=== PATIENT | female | born 1945 | race Native Hawaiian/Other Pacific Islander ===

== ENCOUNTER 2018-06-14 12:57 | Outpatient (CLI) | payer MEDICARE, OTHER ==
[2018-06-14] MEDS ORDERED: XYLOCAINE TOPICAL 4% TP ONE (13:34)
== END 2018-06-14 12:58 | disposition home or self-care (01) ==
LOC: WOUND 12:57
PROVIDERS: ATTEND Surgery
DX: L89.522 Pressure ulcer of left ankle, stage 2 (principal); L89.512 Pressure ulcer of right ankle, stage 2; I11.0 Hypertensive heart disease with heart failure; I50.9 Heart failure, unspecified; F03.90 Unspecified dementia, unspecified severity, without behavioral disturbance, psychotic disturbance, mood disturbance, and anxiety; Z90.710 Acquired absence of both cervix and uterus
CPT/HCPCS: 11042; G0463; 99215

== ENCOUNTER 2018-06-21 13:01 | Outpatient (CLI) | payer MEDICARE, OTHER ==
[2018-06-21] MEDS ORDERED: XYLOCAINE TOPICAL 4% TP ONE ×2 (13:16→16:14)
== END 2018-06-21 13:02 | disposition home or self-care (01) ==
LOC: WOUND 13:01
PROVIDERS: ATTEND Surgery
DX: L89.522 Pressure ulcer of left ankle, stage 2 (principal); L89.512 Pressure ulcer of right ankle, stage 2; I11.0 Hypertensive heart disease with heart failure; I50.9 Heart failure, unspecified; F03.90 Unspecified dementia, unspecified severity, without behavioral disturbance, psychotic disturbance, mood disturbance, and anxiety; Z90.710 Acquired absence of both cervix and uterus

== ENCOUNTER 2018-06-28 10:00 | Outpatient (CLI) | payer MEDICARE, OTHER ==
[2018-06-28] MEDS ORDERED: XYLOCAINE TOPICAL 4% TP ONE ×2 (10:12→10:28)
== END 2018-06-28 10:01 | disposition home or self-care (01) ==
LOC: WOUND 10:00
PROVIDERS: ATTEND Surgery
DX: L89.522 Pressure ulcer of left ankle, stage 2 (principal); L89.512 Pressure ulcer of right ankle, stage 2; I11.0 Hypertensive heart disease with heart failure; I50.9 Heart failure, unspecified; F03.90 Unspecified dementia, unspecified severity, without behavioral disturbance, psychotic disturbance, mood disturbance, and anxiety; Z90.710 Acquired absence of both cervix and uterus

== ENCOUNTER 2018-07-12 10:41 | Outpatient (CLI) | payer MEDICARE, OTHER | END 2018-07-12 10:42 | disposition home or self-care (01) | LOC: WOUND 10:41 | PROVIDERS: ATTEND Surgery | DX: L89.522 Pressure ulcer of left ankle, stage 2 (principal); L89.512 Pressure ulcer of right ankle, stage 2; I11.0 Hypertensive heart disease with heart failure; I50.9 Heart failure, unspecified; F03.90 Unspecified dementia, unspecified severity, without behavioral disturbance, psychotic disturbance, mood disturbance, and anxiety; Z90.710 Acquired absence of both cervix and uterus | CPT/HCPCS: 99213; G0463 ==

== ENCOUNTER 2018-10-06 12:22 | Inpatient (IN) | payer MEDICARE, OTHER ==
--- NOTE | 2018-10-06 12:48 | Emergency Department Report ---
ED Syncope HPI - General Chief Complaint: Altered Mental Status Stated Complaint: GENERAL WEAKNESS Time Seen by Provider: 10/06/18 12:30 Source: patient, family Exam Limitations: no limitations - History of Present Illness Initial Comments: 73-year-old female with a past medical history dementia, hypertension, CHF, and "blood clot in heart" presents to the hospital complaints of syncope/near syncopal episode prior to arrival. Patient was sitting in a chair and all of a sudden became less responsive and began to slide slight slump out of the chair. Patient was guided down to the floor and subsequently picked up by family members. Patient was less responsive but they are unsure if she completely passed out. Upon EMS arrival systolic pressure was in 90s but improved to over 100 with 250 mL of normal saline. Patient complains of nausea with vomiting and generalized weakness that occurred since the episode. Prior to that so patient was asymptomatic. In February 2018 patient was diagnosed with "a clot in her heart" and was treated with morphine with complications. Patient is now on Eliquis 1/2 tablet twice a day and has been told that the clot no longer present. Patient denies any pain. PMD: Dr. Maddox wax engraver Dr. Mendez - Related Data Allergies/Adverse Reactions: Allergies shellfish derived Adverse Reaction (Verified 06/14/18 14:19) Rash Home Medications: Ambulatory Orders Ciprofloxacin HCl [Cipro] 500 mg PO Q12H #6 tab 10/15/14 ED Review of Systems ROS: Stated complaint: GENERAL WEAKNESS Other details as noted in HPI Comment: All other systems reviewed and negative ED Past Medical Hx - Past Medical History Hx Hypertension: Yes Hx Arthritis: Yes (rheumatoid arthritis) Additional medical history: chf, dementia - Surgical History Additional Surgical History: HYSTERECTOMY - Social History Smoking Status: Never Smoker - Medications Home Medications: Home Medications Medication Instructions Recorded Confirmed Last Taken Type Ciprofloxacin HCl [Cipro] 500 mg PO Q12H #6 tab 10/15/14 Unknown Rx ED Physical Exam - General Limitations: Language Barrier - Other Other exam information: General: No limitations, patient is alert in no acute distress Head exam: Atraumatic, normocephalic Eyes exam: Normal appearance, pupils equal reactive to light, extraocular movements intact ENT: Moist mucous membrane, normal oropharynx Neck exam: Normal inspection, full range of motion, no meningismus nontender Respiratory exam: Clear to auscultation bilateral, no wheezes, rales, crackles Cardiovascular: Normal rate and rhythm, normal heart sounds Abdomen: Soft, nondistended, and nontender, with normal bowel sounds, no rebound, or guarding Extremity: Full range of motion normal inspection no deformity Back: Normal Inspection, full range of motion, no tenderness Neurologic: Alert, oriented to self and place but not to year, cranial nerves intact, no motor or sensory deficit Psychiatric: normal affect, normal mood Skin: Warm, dry, intact ED Course Vital Signs 10/06/18 10/06/18 10/06/18 12:33 12:35 12:45 Temperature 97.6 F Pulse Rate 67 78 69 Respiratory 18 15 17 Rate Blood Pressure Blood Pressure 100/34 [Left] O2 Sat by Pulse 96 99 99 Oximetry 10/06/18 10/06/18 10/06/18 13:11 13:15 13:31 Temperature Pulse Rate 72 74 Respiratory 14 13 Rate Blood Pressure Blood Pressure [Left] O2 Sat by Pulse 99 98 98 Oximetry 10/06/18 10/06/18 10/06/18 13:45 14:01 14:15 Temperature Pulse Rate Respiratory Rate Blood Pressure Blood Pressure [Left] O2 Sat by Pulse 98 97 99 Oximetry 10/06/18 10/06/18 10/06/18 14:31 14:45 15:01 Temperature Pulse Rate Respiratory Rate Blood Pressure 95/39 Blood Pressure [Left] O2 Sat by Pulse 97 96 97 Oximetry - Consultations Consultation #1: 10/06/18 15:00 Case d/w Shasta Horner [facility] cardiology. will consult ED Medical Decision Making - Lab Data Result diagrams: 10/06/18 13:32 10/06/18 13:32 Lab Results 10/06/18 10/06/18 10/06/18 Range/Units 13:32 13:32 13:32 WBC 18.8 H (4.5-11.0) K/mm3 RBC 4.61 (3.65-5.03) M/mm3 Hgb 9.2 L (10.1-14.3) gm/dl Hct 29.9 L (30.3-42.9) % MCV 65 L (79-97) fl MCH 20 L (28-32) pg MCHC 31 (30-34) % RDW 16.1 H (13.2-15.2) % Plt Count 600 H (140-440) K/mm3 Lymph % (Auto) 7.9 L (13.4-35.0) % [place] % (Auto) 4.6 (0.0-7.3) % Eos % (Auto) 0.4 (0.0-4.3) % Baso % (Auto) 0.1 (0.0-1.8) % Lymph # 1.5 (1.2-5.4) K/mm3 [place] # 0.9 H (0.0-0.8) K/mm3 Eos # 0.1 (0.0-0.4) K/mm3 Baso # 0.0 (0.0-0.1) K/mm3 Seg Neutrophils % 87.0 H (40.0-70.0) % Seg Neutrophils # 16.3 H (1.8-7.7) K/mm3 PT 15.0 H (12.2-14.9) Sec. INR 1.14 H (0.87-1.13) APTT 28.7 (24.2-36.6) Sec. Sodium 141 (137-145) mmol/L Potassium 4.9 (3.6-5.0) mmol/L Chloride 105.6 (98-107) mmol/L Carbon Dioxide 23 (22-30) mmol/L Anion Gap 17 mmol/L BUN 46 H (7-17) mg/dL Creatinine 1.8 H (0.7-1.2) mg/dL Estimated GFR 28 ml/min BUN/Creatinine Ratio 26 % Glucose 131 H (65-100) mg/dL Calcium 8.7 (8.4-10.2) mg/dL Magnesium (1.7-2.3) mg/dL Total Bilirubin 0.20 (0.1-1.2) mg/dL AST 24 (5-40) units/L ALT < 5 L (7-56) units/L Alkaline Phosphatase 39 (35-129) units/L Total Creatine Kinase 23 L (30-135) units/L CK-MB (CK-2) 1.0 (0.0-4.0) ng/mL CK-MB (CK-2) Rel Index 4.3 H (0-4) Troponin T < 0.010 (0.00-0.029) ng/mL Total Protein 6.4 (6.3-8.2) g/dL Albumin 3.6 L (3.9-5) g/dL Albumin/Globulin Ratio 1.3 % Urine Color (Yellow) Urine Turbidity (Clear) Urine pH (5.0-7.0) Ur Specific [place] (1.003-1.030) Urine Protein (Negative) mg/dL Urine Glucose (UA) (Negative) mg/dL Urine Ketones (Negative) mg/dL Urine Blood (Negative) Urine Nitrite (Negative) Urine Bilirubin (Negative) Urine Urobilinogen (<2.0) mg/dL Ur Leukocyte Esterase (Negative) Urine WBC (Auto) (0.0-6.0) /HPF Urine RBC (Auto) (0.0-6.0) /HPF U Epithel Cells (Auto) (0-13.0) /HPF Urine Bacteria (Auto) (Negative) /HPF Urine Mucus /HPF 10/06/18 10/06/18 Range/Units 13:32 14:15 WBC (4.5-11.0) K/mm3 RBC (3.65-5.03) M/mm3 Hgb (10.1-14.3) gm/dl Hct (30.3-42.9) % MCV (79-97) fl MCH (28-32) pg MCHC (30-34) % RDW (13.2-15.2) % Plt Count (140-440) K/mm3 Lymph % (Auto) (13.4-35.0) % [place] % (Auto) (0.0-7.3) % Eos % (Auto) (0.0-4.3) % Baso % (Auto) (0.0-1.8) % Lymph # (1.2-5.4) K/mm3 [place] # (0.0-0.8) K/mm3 Eos # (0.0-0.4) K/mm3 Baso # (0.0-0.1) K/mm3 Seg Neutrophils % (40.0-70.0) % Seg Neutrophils # (1.8-7.7) K/mm3 PT (12.2-14.9) Sec. INR (0.87-1.13) APTT (24.2-36.6) Sec. Sodium (137-145) mmol/L Potassium (3.6-5.0) mmol/L Chloride (98-107) mmol/L Carbon Dioxide (22-30) mmol/L Anion Gap mmol/L BUN (7-17) mg/dL Creatinine (0.7-1.2) mg/dL Estimated GFR ml/min BUN/Creatinine Ratio % Glucose (65-100) mg/dL Calcium (8.4-10.2) mg/dL Magnesium 2.70 H (1.7-2.3) mg/dL Total Bilirubin (0.1-1.2) mg/dL AST (5-40) units/L ALT (7-56) units/L Alkaline Phosphatase (35-129) units/L Total Creatine Kinase (30-135) units/L CK-MB (CK-2) (0.0-4.0) ng/mL CK-MB (CK-2) Rel Index (0-4) Troponin T (0.00-0.029) ng/mL Total Protein (6.3-8.2) g/dL Albumin (3.9-5) g/dL Albumin/Globulin Ratio % Urine Color Yellow (Yellow) Urine Turbidity Slightly-cloudy (Clear) Urine pH 5.0 (5.0-7.0) Ur Specific [place] 1.013 (1.003-1.030) Urine Protein 30 mg/dl (Negative) mg/dL Urine Glucose (UA) Neg (Negative) mg/dL Urine Ketones Neg (Negative) mg/dL Urine Blood Neg (Negative) Urine Nitrite Neg (Negative) Urine Bilirubin Neg (Negative) Urine Urobilinogen < 2.0 (<2.0) mg/dL Ur Leukocyte Esterase Lg (Negative) Urine WBC (Auto) 57.0 H (0.0-6.0) /HPF Urine RBC (Auto) 12.0 (0.0-6.0) /HPF U Epithel Cells (Auto) 1.0 (0-13.0) /HPF Urine Bacteria (Auto) 2+ (Negative) /HPF Urine Mucus Few /HPF - EKG Data -: EKG Interpreted by Me (JOE) EKG shows normal: sinus rhythm, axis (qrs 30), QRS complexes (qrsd 172), ST-T waves (no stemi) Rate: normal (72) - EKG Data When compared to previous EKG there are: previous EKG unavailable - Radiology Data Radiology results: report reviewed CT HEAD WITHOUT CONTRAST: HISTORY: Syncope. TECHNIQUE: Sequential CT images without contrast. FINDINGS: Images obtained show bilateral prominence of the sulci and ventricles. There are no abnormal intra- or extra-axial blood or fluid collections. There are no focal masses or evidence of mass effect. The chowdhury white matter differentiation appears within normal limits. Regions of periventricular decreased attenuation are consistent with microangiopathic ischemic disease. Subcentimeter chronic focal infarcts are identified in the right thalamus and left parietal cortex involving the postcentral gyrus. The posterior fossa structures including the fourth ventricle, cerebellum, and brainstem appear normal. IMPRESSION: Evidence of atrophy and microangiopathic ischemic disease. Focal chronic infarcts as described. No acute intracranial process noted. AP CHEST: HISTORY: Near syncope AP view of the chest demonstrates a normal mediastinal and cardiac contour with clear lungs and normal bony and soft tissue structures. IMPRESSION: Unremarkable AP chest. - Medical Decision Making Patient be admitted to the hospital for syncope/near syncopal episode. Initial hypotension corrected prior to arrival with IV fluids. Labs reveal renal insufficiency with prerenal BUN to creatinine ratio suggesting dehydration. Baseline creatine unknown. Additional normal saline ordered. Patient has a left bundle branch block without a previous EKG for comparison however, patient denies chest pain and has a negative initial troponin. No previous cardiac workup or ejection fraction record although hx of chf therefore 500ml of NS ordered initially. Rocephin order for UTI with urine cultures pending. [facility] Dr. Dunbar informed for admission. [facility] consulted Additional labs ordered to rule out sepsis given elevated white blood cell count, UTI, and borderline blood pressure. Initial 500 normal saline given an additional normal saline ordered so the patient may receive 30 mL per KG bolus. - Differential Diagnosis arrhythmia, infection, dehydration, ICH, cephalopathy, CVA Critical Care Time: No Critical care attestation.: If time is entered above; I have spent that time in minutes in the direct care of this critically ill patient, excluding procedure time. ED Disposition Clinical Impression: Syncope, UTI (urinary tract infection), Dehydration, Dementia, Renal insufficiency, Anticoagulant long-term use, Anemia Disposition: OP ADMIT IP TO THIS HOSP Is pt being admited?: Yes Condition: Stable Referrals: PRIMARY CARE, [Primary Care Provider] - 3-5 Days Time of Disposition: 14:55 (Dr Dunbar/[facility])
--- NOTE | 2018-10-06 13:13 | XRay Report ---
AP CHEST: HISTORY: Near syncope AP view of the chest demonstrates a normal mediastinal and cardiac contour with clear lungs and normal bony and soft tissue structures. IMPRESSION: Unremarkable AP chest.
--- NOTE | 2018-10-06 13:19 | Cat Scan Report ---
CT HEAD WITHOUT CONTRAST: HISTORY: Syncope. TECHNIQUE: Sequential CT images without contrast. FINDINGS: Images obtained show bilateral prominence of the sulci and ventricles. There are no abnormal intra- or extra-axial blood or fluid collections. There are no focal masses or evidence of mass effect. The chowdhury white matter differentiation appears within normal limits. Regions of periventricular decreased attenuation are consistent with microangiopathic ischemic disease. Subcentimeter chronic focal infarcts are identified in the right thalamus and left parietal cortex involving the postcentral gyrus. The posterior fossa structures including the fourth ventricle, cerebellum, and brainstem appear normal. IMPRESSION: Evidence of atrophy and microangiopathic ischemic disease. Focal chronic infarcts as described. No acute intracranial process noted.
[2018-10-06 13:56] LABS: INR 1.14 (0.87-1.13); Partial Thromboplastin Time 28.7 Sec. (24.2-36.6)
[2018-10-06 14:08] LABS: Albumin 3.6 g/dL (3.9-5); BUN/Creatinine Ratio 26; Blood Urea Nitrogen 46 mg/dL (7-17); Calcium 8.7 mg/dL (8.4-10.2); Hemolysis Index 15
[2018-10-06 14:18] LABS: Alanine Aminotransferase < 5 units/L (7-56)
[2018-10-06] MEDS ORDERED: NACL 0.9% 500 ML 500 ML IV ONE (14:25)
[2018-10-06 14:33] LABS: Bacteria,Urine 2+ /HPF (Negative); Bilirubin,Urine NEG (Negative); Blood,Urine NEG (Negative); Color,Urine Yellow (Yellow); Mucus,Urine FEW /HPF; Urobilinogen,Urine < 2.0 mg/dL (<2.0)
[2018-10-06 14:46] LABS: Basophils % (Auto) 0.1 % (0.0-1.8); Eosinophils # (Auto) 0.1 K/mm3 (0.0-0.4); Eosinophils % (Auto) 0.4 % (0.0-4.3); Hematocrit 29.9 % (30.3-42.9); Hemoglobin 9.2 gm/dl (10.1-14.3); Lymphocytes # (Auto) 1.5 K/mm3 (1.2-5.4); Lymphocytes % (Auto) 7.9 % (13.4-35.0); Mean Corpuscular HGB Conc 31 % (30-34); Monocytes # (Auto) 0.9 K/mm3 (0.0-0.8); Monocytes % (Auto) 4.6 % (0.0-7.3); Platelet Count 600 K/mm3 (140-440); Red Blood Count 4.61 M/mm3 (3.65-5.03); Red Cell Distribution Width 16.1 % (13.2-15.2)
[2018-10-06 14:56] LABS: Mean Corpuscular Volume 65 fl (79-97)
[2018-10-06] MEDS ORDERED: NACL 0.9% 1000 ML IV ONE ×2 (15:05→15:06)
[2018-10-06] MEDS ORDERED: ROCEPHIN/NS 1 GM/50 ML 1 GM/50 ML BAG IV ONE (15:30)
[2018-10-06] MEDS ORDERED: NACL 0.9% 1000 ML 1,000 ML ONE (15:59)
[2018-10-06] MEDS ORDERED: TYLENOL PO PRN (21:53)
[2018-10-06] MEDS ORDERED: ZOFRAN IV PRN (21:53)
[2018-10-06] MEDS ORDERED: DILAUDID IV PRN (21:53)
[2018-10-06] MEDS ORDERED: SODIUM CHLORIDE FLUSH SYRINGE 10 ML IV PRN (21:53)
[2018-10-06] MEDS ORDERED: LASIX PO SCH (22:00)
[2018-10-06] MEDS: ELIQUIS PO SCH (22:42)
[2018-10-06] MEDS: FEOSOL PO SCH (22:43)
[2018-10-06] MEDS: COREG PO SCH (22:43)
[2018-10-06] MEDS: SODIUM CHLORIDE FLUSH SYRINGE 10 ML IV SCH (22:43)
[2018-10-06] MEDS: DELTASONE PO SCH (22:44)
[2018-10-06] MEDS: ALDACTONE PO SCH (22:45)
[2018-10-06] MEDS: ZESTRIL PO SCH (22:48)
[2018-10-06] MEDS: NACL 0.9% 1000 ML 1,000 ML IV SCH (23:06)
[2018-10-06] MEDS: NAMENDA PO SCH (23:12)
[2018-10-07 06:19] LABS: Basophils % (Auto) 0.2 % (0.0-1.8); Eosinophils # (Auto) 0.1 K/mm3 (0.0-0.4); Eosinophils % (Auto) 0.5 % (0.0-4.3); Hematocrit 23.7 % (30.3-42.9); Hemoglobin 7.5 gm/dl (10.1-14.3); Lymphocytes # (Auto) 1.1 K/mm3 (1.2-5.4); Lymphocytes % (Auto) 9.6 % (13.4-35.0); Mean Corpuscular HGB Conc 32 % (30-34); Monocytes # (Auto) 0.6 K/mm3 (0.0-0.8); Platelet Count 486 K/mm3 (140-440); Red Blood Count 3.72 M/mm3 (3.65-5.03); Red Cell Distribution Width 16.2 % (13.2-15.2)
[2018-10-07 06:21] LABS: Mean Corpuscular Volume 64 fl (79-97)
--- NOTE | 2018-10-07 06:33 | Event Note ---
Date: 10/06/18 See dictated H/p in reports Syncope
[2018-10-07 06:43] LABS: Albumin 3.2 g/dL (3.9-5); BUN/Creatinine Ratio 24; Blood Urea Nitrogen 31 mg/dL (7-17); Calcium 7.8 mg/dL (8.4-10.2); Hemolysis Index 3
[2018-10-07 06:49] LABS: Alanine Aminotransferase < 5 units/L (7-56)
--- NOTE | 2018-10-07 07:00 | History and Physical Report ---
CHIEF COMPLAINT: Passed out prior to arrival. HISTORY OF PRESENT ILLNESS: A 73-year-old with past medical history of CHF, hypertension, dementia, brought in because she became less responsive and slumped out of the chair. The patient was guided down to the floor and subsequently picked up by the family members. Family is not sure whether she completely passed out. When the EMS arrived, her blood pressure was in the low 90s, which improved with normal saline bolus of 250 mL. The patient also complains of generalized weakness since the one episode of vomiting. The patient apparently has a clot in the heart and is on Eliquis. . 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 PAST SURGICAL HISTORY: Hysterectomy. SOCIAL HISTORY: Does not smoke. FAMILY HISTORY: Hypertension. CURRENT MEDICATIONS: Eliquis twice a day. REVIEW OF SYSTEMS: Significant for syncope and collapse. Otherwise, review of systems negative. A 14-point review of systems done. PHYSICAL EXAMINATION: GENERAL: Elderly female, cooperative during examination. Slightly altered sensorium. VITAL SIGNS: Temperature 98.4, pulse 85, respirations 18, sats are 99%, blood pressure 102/52. HEENT: Unremarkable. Pupils equal and reactive. NECK: Supple, no lymphadenopathy, no thyromegaly. LUNGS: Clear to auscultation and percussion. Good air entry. CARDIOVASCULAR: S1, S2 heard. No gallop, no murmur, no rub. Apical impulse in left fifth intercostal space and midclavicular line. ABDOMEN: Soft and benign. No hepatosplenomegaly. No guarding, no rigidity. Hernial orifices are normal. EXTREMITIES: Good pedal pulses. No pedal edema. CENTRAL NERVOUS SYSTEM: Alert and oriented x 4, nonfocal exam. LABORATORY DATA: Chest x-ray shows unremarkable AP chest. Head CT with no acute findings. EKG shows left bundle branch block, ST elevation secondary to IVCD. Heart rate of 72 per minute. Labs significant for white count of 18,800, H and H of 9.2 and 29.9, platelet count of 600,000. Electrolytes, BUN and creatinine of 46 and 1.8 and glucose of 131. Magnesium 2.7. CK is 23, CK-MB is 1.0 and CK-MB is 4.3. Troponin is less than 0.010. Urine WBC 57. ASSESSMENT AND PLAN: 1. Syncope and collapse. Now, syncope workup. 2. Urinary tract infection. The patient initiated on IV ceftriaxone. 3. Systemic inflammatory response syndrome. The patient has a high white count and urinary tract infection. Qualifies for systemic inflammatory response syndrome, which may have caused the syncope and collapse. 4. Hyperlipidemia. Continue fenofibrate. 5. Hypertension. Continue Coreg. 6. Osteoporosis. We will hold the Fosamax for now. 7. Dementia. Continue Aricept and Namenda. 8. Bipolar disorder. Continue Seroquel. 9. Deep venous thrombosis prophylaxis, Lovenox 40 mg subcutaneous daily. JOB# [id number] VSM/NTS
[2018-10-07] MEDS: VITAMIN C PO SCH (09:39)
[2018-10-07] MEDS: TRICOR PO SCH (09:39)
[2018-10-07] MEDS: ALDACTONE PO SCH (09:39)
[2018-10-07] MEDS: SODIUM CHLORIDE FLUSH SYRINGE 10 ML IV SCH ×2 (09:39→21:26)
[2018-10-07] MEDS: FOLVITE PO SCH (09:39)
[2018-10-07] MEDS: FEOSOL PO SCH ×2 (09:39→21:25)
[2018-10-07] MEDS: DELTASONE PO SCH ×2 (09:39→21:25)
[2018-10-07] MEDS: ELIQUIS PO SCH ×2 (09:39→21:25)
[2018-10-07] MEDS: ARICEPT PO SCH (09:39)
[2018-10-07] MEDS: COREG PO SCH ×2 (09:40→21:25)
[2018-10-07] MEDS ORDERED: ROCEPHIN/NS 2 GM/100 ML 2 GM/100 ML BAG IV SCH (10:00)
[2018-10-07] MEDS: ZESTRIL PO SCH (11:33)
[2018-10-07] MEDS: NAMENDA PO SCH ×2 (12:41→21:29)
--- NOTE | 2018-10-07 13:50 | Consultation ---
History of Present Illness Consult date: 10/07/18 Requesting physician: JENNY CUEVA Consult reason: syncope History of present illness: The pt is a 73 YO female with a past medical history of NICMP (not a candidate for AICD due to mental status), LV thrombus (diagnosed 02/2018), anticoagulated with Eliquis, LBBB, dementia, rheumatoid arthritis, renal insufficiency. She is followed in our office by Dr. Mendez. She is a poor historian due to dementia and thus HPI is obtained per the chart. She presented to the hospital with complaints of syncope/near syncopal episode prior to arrival. Patient was sitting in a chair and all of a sudden became less responsive and began to slide and slump out of the chair. Patient was guided down to the floor and subsequently picked up by family members. Patient was less responsive but they are unsure if she completely passed out. Upon EMS arrival systolic pressure was in 90s but improved to over 100 with 250 mL of normal saline. In ED, patient c/o nausea with vomiting and generalized weakness that occurred since the episode. Prior to that so patient was asymptomatic. On evaluation, pt denies any current complaints. Echo done 09/01/2018 showed EF 25-30%, LV mod dilated, no intracardiac mass or thrombus identified. PET Perfusion Study done 05/26/2017 - Impression: 1. Abnormal Lexiscan EKG. Patient went into LBBB during infusion that quickly resolved after 2 minutes.2. Normal rest and stress myocardial PET perfusion scan. No significant stress induced ischemia, no wall motion abnormality.3. Gated SPECT at rest 52%, stress 59%. 3. Coronary flow globally is diminished at 1.34. Past History Past Medical History: heart failure, other (NICMP (not a candidate for AICD due to mental status), LV thrombus (diagnosed 02/2018), anticoagulated with Eliquis, dementia, rheumatoid arthritis, renal insufficiency.) Social history: lives with family. denies: smoking, alcohol abuse, prescription drug abuse Medications and Allergies Allergies Allergy/AdvReac Type Severity Reaction Status Date / Time shellfish derived AdvReac Rash Verified 06/14/18 14:19 Home Medications Medication Instructions Recorded Confirmed Last Taken Type Alendronate Sodium [Fosamax] 70 mg PO QWEEK 10/06/18 10/06/18 10/04/18 History Apixaban [Eliquis] 2.5 mg PO BID 10/06/18 10/06/18 10/06/18 History Ascorbic Acid [Vitamin C] 500 mg PO QDAY 10/06/18 10/06/18 Unknown History Carvedilol [Coreg] 6.25 mg PO BID 10/06/18 10/06/18 10/06/18 History Cyanocobalamin (Vitamin B-12) 1,000 mcg PO DAILY 10/06/18 10/06/18 Unknown History [Vitamin B-12] Donepezil [Aricept] 10 mg PO QDAY 10/06/18 10/06/18 10/06/18 History Fenofibrate 160 mg PO DAILY 10/06/18 10/06/18 10/06/18 History Ferrous Sulfate [Feosol] 325 mg PO BID 10/06/18 10/06/18 10/06/18 History Folic Acid [Folvite] 1 mg PO QDAY 10/06/18 10/06/18 10/06/18 History Furosemide [Lasix TAB] 40 mg PO Q48H 10/06/18 10/06/18 Unknown History Lisinopril [Zestril] 5 mg PO QDAY 10/06/18 10/06/18 Unknown History Memantine [Namenda] 5 mg PO BID 10/06/18 10/06/18 10/06/18 History QUEtiapine [SEROquel] 25 mg PO BID 10/06/18 10/06/18 10/06/18 History Spironolactone [Aldactone] 25 mg PO QDAY 10/06/18 10/06/18 Unknown History predniSONE [Prednisone] 5 mg PO BID 10/06/18 10/06/18 10/06/18 History Active Meds: Active Medications Acetaminophen (Tylenol) 650 mg PO Q4H PRN PRN Reason: Pain MILD(1-3)/Fever >100.5/DINH Apixaban (Eliquis) 2.5 mg PO BID [facility]; Protocol Last Admin: 10/07/18 09:39 Dose: 2.5 mg Documented by: Ascorbic Acid (Vitamin C) 500 mg PO QDAY [facility] Last Admin: 10/07/18 09:39 Dose: 500 mg Documented by: Carvedilol (Coreg) 6.25 mg PO BID [facility] Last Admin: 10/07/18 09:40 Dose: Not Given Documented by: Donepezil HCl (Aricept) 10 mg PO QDAY [facility] Last Admin: 10/07/18 09:39 Dose: 10 mg Documented by: Fenofibrate (Tricor) 145 mg PO DAILY [facility] Last Admin: 10/07/18 09:39 Dose: 145 mg Documented by: Ferrous Sulfate (Feosol) 325 mg PO BID [facility] Last Admin: 10/07/18 09:39 Dose: 325 mg Documented by: Folic Acid (Folvite) 1 mg PO QDAY [facility] Last Admin: 10/07/18 09:39 Dose: 1 mg Documented by: Furosemide (Lasix) 40 mg PO Q48H [facility] Last Admin: 10/06/18 22:45 Dose: Not Given Documented by: Hydromorphone HCl (Dilaudid) 0.5 mg IV Q3H PRN PRN Reason: Pain , Severe (7-10) Sodium Chloride (Nacl 0.9% 1000 Ml) 1,000 mls @ 75 mls/hr IV DIRECT [facility] Last Admin: 10/06/18 23:06 Dose: 75 mls/hr Documented by: Ceftriaxone Sodium (Rocephin/Ns 2 Gm/100 Ml) 2 gm in 100 mls @ 200 mls/hr IV Q24HR [facility]; Protocol Last Admin: 10/07/18 11:32 Dose: 200 mls/hr Documented by: Lisinopril (Zestril) 5 mg PO QDAY [facility] Last Admin: 10/07/18 11:33 Dose: Not Given Documented by: Memantine (Namenda) 5 mg PO BID [facility] Last Admin: 10/07/18 12:41 Dose: 5 mg Documented by: Ondansetron HCl (Zofran) 4 mg IV Q8H PRN PRN Reason: Nausea And Vomiting Prednisone (Deltasone) 5 mg PO BID [facility] Last Admin: 10/07/18 09:39 Dose: 5 mg Documented by: Quetiapine Fumarate (Seroquel) 25 mg PO BID [facility] Last Admin: 10/07/18 09:39 Dose: 25 mg Documented by: Sodium Chloride (Sodium Chloride Flush Syringe 10 Ml) 10 ml IV BID [facility] Last Admin: 10/07/18 09:39 Dose: 10 ml Documented by: Sodium Chloride (Sodium Chloride Flush Syringe 10 Ml) 10 ml IV PRN PRN PRN Reason: LINE FLUSH Spironolactone (Aldactone) 25 mg PO QDAY [facility] Last Admin: 10/07/18 09:39 Dose: Not Given Documented by: Review of Systems All systems: negative (no current complaints) Physical Examination Vital Signs Pulse Resp BP Pulse Ox 67 18 100/34 96 10/06/18 12:33 10/06/18 12:33 10/06/18 12:33 10/06/18 12:33 General appearance: no acute distress HEENT: Positive: PERRL, Normocephaly, Mucus Membranes Moist Neck: Positive: neck supple, trachea midline Cardiac: Positive: Reg Rate and Rhythm, S1/S2 Lungs: Positive: clear to auscultation Neuro: Positive: Grossly Intact Abdomen: Positive: Soft. Negative: Tender Skin: Negative: Rash, Wound Musculoskeletal: No Pain Extremities: Absent: edema Results 10/07/18 05:32 10/07/18 05:32 Cardiac Enzymes 10/06/18 10/07/18 Range/Units 13:32 05:32 AST 24 20 (5-40) units/L CK-MB (CK-2) 1.0 (0.0-4.0) ng/mL Coagulation 10/06/18 Range/Units 13:32 PT 15.0 H (12.2-14.9) Sec. INR 1.14 H (0.87-1.13) APTT 28.7 (24.2-36.6) Sec. CBC 10/06/18 10/07/18 Range/Units 13:32 05:32 WBC 18.8 H 11.9 H (4.5-11.0) K/mm3 RBC 4.61 3.72 (3.65-5.03) M/mm3 Hgb 9.2 L 7.5 L (10.1-14.3) gm/dl Hct 29.9 L 23.7 L D (30.3-42.9) % Plt Count 600 H 486 H (140-440) K/mm3 Lymph # 1.5 1.1 L (1.2-5.4) K/mm3 Brown # 0.9 H 0.6 (0.0-0.8) K/mm3 Eos # 0.1 0.1 (0.0-0.4) K/mm3 Baso # 0.0 0.0 (0.0-0.1) K/mm3 Comprehensive Metabolic Panel 10/06/18 10/07/18 Range/Units 13:32 05:32 Sodium 141 142 (137-145) mmol/L Potassium 4.9 5.5 H (3.6-5.0) mmol/L Chloride 105.6 114.4 H (98-107) mmol/L Carbon Dioxide 23 20 L (22-30) mmol/L BUN 46 H 31 H (7-17) mg/dL Creatinine 1.8 H 1.3 H (0.7-1.2) mg/dL Glucose 131 H 97 (65-100) mg/dL Calcium 8.7 7.8 L (8.4-10.2) mg/dL AST 24 20 (5-40) units/L ALT < 5 L < 5 L (7-56) units/L Alkaline Phosphatase 39 34 L (35-129) units/L Total Protein 6.4 5.4 L (6.3-8.2) g/dL Albumin 3.6 L 3.2 L (3.9-5) g/dL - Imaging and Cardiology Echo: report reviewed (09/01/2018 showed EF 25-30%, LV mod dilated, no intracardiac mass or thrombus identified. ) EKG: report reviewed, image reviewed EKG interpretations - Telemetry EKG Rhythm: Sinus Rhythm - EKG Sinus rhythms and dysrhythmias: sinus rhythm AV and intraventricular conduction: left bundle branch block Assessment and Plan Head CT with NAF. Carotid studies pending. Cont telemetry. Suspect ?syncopal/presyncopal episode secondary to dehydration. Currently stable cardiac status. No current indication for repeat echo or ischemic evaluation at this time. Hold home lasix, lisinopril, aldactone in setting of hyperkalemia, dehydration and renal insufficiency. Agree with IVF per primary. Repeat BMP in AM. Cont home Eliquis 2.5mg BID and coreg. Abx per primary. The patient has been seen in conjunction with Dr. Esteban Valles who agrees with the assessment and plan of care. - Patient Problems (1) Syncope Current Visit: Yes Status: Suspected (2) UTI (urinary tract infection) Current Visit: Yes Status: Acute (3) Dehydration Current Visit: Yes Status: Acute (4) Anemia Current Visit: Yes Status: Acute (5) Renal insufficiency Current Visit: Yes Status: Acute (6) Hyperkalemia Current Visit: Yes Status: Acute (7) NICM (nonischemic cardiomyopathy) Current Visit: Yes Status: Acute (8) LV (left ventricular) mural thrombus Current Visit: No Status: Resolved (9) Anticoagulant long-term use Current Visit: Yes Status: Chronic (10) LBBB (left bundle branch block) Current Visit: Yes Status: Chronic (11) Dementia Current Visit: Yes Status: Chronic
[2018-10-07] MEDS ORDERED: IMODIUM PO PRN (15:28)
--- NOTE | 2018-10-07 16:13 | Progress Note ---
Assessment and Plan Assessment and plan: Syncopal episode - CT head was normal, carotid Doppler was done - Syncopal episode may be due to dehydration, hypotension Nonischemic cardiomyopathy EF of 25-30%, left ventricular thrombus - Cardiology was consulted and recommended to hold the blood pressure medications and continue eliquis - Patient is not a candidate for AICD because of dementia Acute renal failure, likely vasomotor nephropathy - Improved after fluid administration - We'll monitor Hyperkalemia - Old Aldactone and lisinopril - IV fluid - Monitor BMP in the morning UTI - Patient was on ceftriaxone, and had diarrhea, I changed to Lovenox Disposition - Continue inpatient care - Possible discharge tomorrow if continued to be stable History Interval history: Patient was seen and evaluated this morning, patient has dementia and history is obtained from her son and chart review. Patient said she didn't have any complaints. Hospitalist Physical - Physical exam Narrative exam: Not in cardiopulmonary distress. The patient appeared well nourished and normally developed. Vital signs as documented. Head exam is unremarkable. No scleral icterus . Neck is without jugular venous distension, thyromegaly, or carotid bruits. Lungs are clear to auscultation. Cardiac exam reveals regular rate and Rhythm. Abdominal exam reveals normal bowel sounds. Extremities are nonedematous and both femoral and pedal pulses are normal. 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 - Constitutional Vitals: Temp Pulse Resp BP Pulse Ox 98.4 F 85 16 114/60 97 10/07/18 15:50 10/07/18 15:50 10/07/18 15:50 10/07/18 15:50 10/07/18 15:50 General appearance: Present: no acute distress Results - Labs CBC & Chem 7: 10/07/18 05:32 10/07/18 05:32 Labs: Laboratory Last Values WBC 11.9 K/mm3 (4.5-11.0) H 10/07/18 05:32 RBC 3.72 M/mm3 (3.65-5.03) 10/07/18 05:32 Hgb 7.5 gm/dl (10.1-14.3) L 10/07/18 05:32 Hct 23.7 % (30.3-42.9) L D 10/07/18 05:32 MCV 64 fl (79-97) L 10/07/18 05:32 MCH 20 pg (28-32) L 10/07/18 05:32 MCHC 32 % (30-34) 10/07/18 05:32 RDW 16.2 % (13.2-15.2) H 10/07/18 05:32 Plt Count 486 K/mm3 (140-440) H 10/07/18 05:32 Lymph % (Auto) 9.6 % (13.4-35.0) L 10/07/18 05:32 Esmeralda % (Auto) 5.0 % (0.0-7.3) 10/07/18 05:32 Eos % (Auto) 0.5 % (0.0-4.3) 10/07/18 05:32 Baso % (Auto) 0.2 % (0.0-1.8) 10/07/18 05:32 Lymph # 1.1 K/mm3 (1.2-5.4) L 10/07/18 05:32 Esmeralda # 0.6 K/mm3 (0.0-0.8) 10/07/18 05:32 Eos # 0.1 K/mm3 (0.0-0.4) 10/07/18 05:32 Baso # 0.0 K/mm3 (0.0-0.1) 10/07/18 05:32 Seg Neutrophils % 84.7 % (40.0-70.0) H 10/07/18 05:32 Seg Neutrophils # 10.1 K/mm3 (1.8-7.7) H 10/07/18 05:32 PT 15.0 Sec. (12.2-14.9) H 10/06/18 13:32 INR 1.14 (0.87-1.13) H 10/06/18 13:32 APTT 28.7 Sec. (24.2-36.6) 10/06/18 13:32 VBG pH 7.325 (7.320-7.420) 10/06/18 15:26 Sodium 142 mmol/L (137-145) 10/07/18 05:32 Potassium 5.5 mmol/L (3.6-5.0) H 10/07/18 05:32 Chloride 114.4 mmol/L (98-107) H 10/07/18 05:32 Carbon Dioxide 20 mmol/L (22-30) L 10/07/18 05:32 Anion Gap 13 mmol/L 10/07/18 05:32 BUN 31 mg/dL (7-17) H 10/07/18 05:32 Creatinine 1.3 mg/dL (0.7-1.2) H 10/07/18 05:32 Estimated GFR 40 ml/min 10/07/18 05:32 BUN/Creatinine Ratio 24 % 10/07/18 05:32 Glucose 97 mg/dL (65-100) 10/07/18 05:32 POC Glucose 97 (70-105) 10/07/18 06:28 Hemoglobin A1c 6.7 % (4-6) H 10/06/18 Unknown Lactic Acid 1.60 mmol/L (0.7-2.0) 10/06/18 18:14 Calcium 7.8 mg/dL (8.4-10.2) L 10/07/18 05:32 Magnesium 2.70 mg/dL (1.7-2.3) H 10/06/18 13:32 Total Bilirubin < 0.20 mg/dL (0.1-1.2) 10/07/18 05:32 AST 20 units/L (5-40) 10/07/18 05:32 ALT < 5 units/L (7-56) L 10/07/18 05:32 Alkaline Phosphatase 34 units/L (35-129) L 10/07/18 05:32 Total Creatine Kinase 23 units/L (30-135) L 10/06/18 13:32 CK-MB (CK-2) 1.0 ng/mL (0.0-4.0) 10/06/18 13:32 CK-MB (CK-2) Rel Index 4.3 (0-4) H 10/06/18 13:32 Troponin T < 0.010 ng/mL (0.00-0.029) 10/06/18 13:32 Total Protein 5.4 g/dL (6.3-8.2) L 10/07/18 05:32 Albumin 3.2 g/dL (3.9-5) L 10/07/18 05:32 Albumin/Globulin Ratio 1.5 % 10/07/18 05:32 Urine Color Yellow (Yellow) 10/06/18 14:15 Urine Turbidity Slightly-cloudy (Clear) 10/06/18 14:15 Urine pH 5.0 (5.0-7.0) 10/06/18 14:15 Ur Specific [place] 1.013 (1.003-1.030) 10/06/18 14:15 Urine Protein 30 mg/dl mg/dL (Negative) 10/06/18 14:15 Urine Glucose (UA) Neg mg/dL (Negative) 10/06/18 14:15 Urine Ketones Neg mg/dL (Negative) 10/06/18 14:15 Urine Blood Neg (Negative) 10/06/18 14:15 Urine Nitrite Neg (Negative) 10/06/18 14:15 Urine Bilirubin Neg (Negative) 10/06/18 14:15 Urine Urobilinogen < 2.0 mg/dL (<2.0) 10/06/18 14:15 Ur Leukocyte Esterase Lg (Negative) 10/06/18 14:15 Urine WBC (Auto) 57.0 /HPF (0.0-6.0) H 10/06/18 14:15 Urine RBC (Auto) 12.0 /HPF (0.0-6.0) 10/06/18 14:15 U Epithel Cells (Auto) 1.0 /HPF (0-13.0) 10/06/18 14:15 Urine Bacteria (Auto) 2+ /HPF (Negative) 10/06/18 14:15 Urine Mucus Few /HPF 10/06/18 14:15
[2018-10-07] MEDS ORDERED: LEVAQUIN 750MG/150ML 750 MG/150 ML BAG IV SCH ×2 (17:00→18:30)
[2018-10-07] MEDS: NACL 0.9% 1000 ML 1,000 ML IV SCH (18:00)
--- NOTE | 2018-10-07 23:20 | Vascular Lab Report ---
FINAL REPORT EXAM: VL CAROTID DUPLEX BILAT HISTORY: syncope TECHNIQUE: Grayscale, color flow and Doppler waveform imaging of the cervical carotid and vertebral arteries was performed. Comparison: None FINDINGS: There is demonstration of normal antegrade flow in the cervical carotid and vertebral arteries bilate rally. There is no demonstration of plaque formation. Peak systolic velocity in the right internal carotid artery is 107 centimeters/second and in the left internal carotid artery is 87 centimeters/second. Peak systolic ICA/CCA ratio on the right is 0.9 and on the left is 1.2 IMPRESSION: 1. No ultrasound evidence of stenosis in the cervical carotid arteries bilaterally.
[2018-10-08] MEDS ORDERED: LEVAQUIN 750MG/150ML 750 MG/150 ML BAG IV SCH (10:00)
--- NOTE | 2018-10-08 11:12 | Discharge Summary ---
Providers - Providers Date of Admission: 10/06/18 14:56 Attending physician: CAMACHO KEARNEY MD 10/06/18 14:54 Consult to Physician [CONS] Urgent Comment: Consulting Provider: FABIAN MENDEZ Physician Instructions: Reason For Exam: syncope Primary care physician: TEST CELL TECHNICIAN Hospitalization Reason for admission: syncope, dehydration, UTI, dementia Condition: Stable Pertinent studies: ECHO CT head Hospital course: 73-year-old female with a past medical history dementia, hypertension, CHF, and "blood clot in heart" presents to the hospital complaints of syncope/near syncopal episode prior to arrival. Patient was sitting in a chair and all of a sudden became less responsive and began to slide slight slump out of the chair. Patient was guided down to the floor and subsequently picked up by family members. Patient was less responsive but they are unsure if she completely passed out. Upon EMS arrival systolic pressure was in 90s but improved to over 100 with 250 mL of normal saline. Patient complains of nausea with vomiting and generalized weakness that occurred since the episode. Prior to that so patient was asymptomatic. In February 2018 patient was diagnosed with "a clot in her heart" and was treated with morphine with complications. Patient is now on Eliquis 1/2 tablet twice a day and has been told that the clot no longer present. Patient denies any pain. PMD: Dr. Maddox radar air traffic controller Dr. Mendez Syncopal episode; CT head was normal, carotid Doppler was done and unremarkable. Syncopal episode may be due to dehydration, hypotension and resolved after treatment with IVF. Nonischemic cardiomyopathy EF of 25-30%, left ventricular thrombus; Cardiology was consulted and recommended to hold the blood pressure medications and continue eliquis. Patient is not a candidate for AICD because of dementia. Acute renal failure, likely vasomotor nephropathy; Improved after fluid administration Hyperkalemia; hold Aldactone and lisinopril, IVF and resolved. UTI; was treated with antibiotic. Patient was discharged home in a stable condition. Disposition: - TO HOME OR SELFCARE Time spent for discharge: 32 minutes - Discharge Diagnoses (1) Anemia Status: Chronic (2) Dehydration Status: Acute (3) Hyperkalemia Status: Acute (4) NICM (nonischemic cardiomyopathy) Status: Acute (5) UTI (urinary tract infection) Status: Acute (6) Anticoagulant long-term use Status: Chronic Core Measure Documentation - Palliative Care Palliative Care/ Comfort Measures: Not Applicable - Core Measures Any of the following diagnoses?: none Exam - Physical Exam Narrative exam: Not in cardiopulmonary distress. The patient appeared well nourished and normally developed. Vital signs as documented. Head exam is unremarkable. No scleral icterus . Neck is without jugular venous distension, thyromegaly, or carotid bruits. Lungs are clear to auscultation. Cardiac exam reveals regular rate and Rhythm. Abdominal exam reveals normal bowel sounds. Extremities are nonedematous and both femoral and pedal pulses are normal. 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 - Constitutional Vitals: Temp Pulse Resp BP Pulse Ox 98.4 F 87 18 121/69 97 10/08/18 08:32 10/08/18 08:32 10/08/18 08:32 10/08/18 08:32 10/08/18 08:32 Plan Activity: advance as tolerated Weight Bearing Status: Full Weight Bearing Diet: low salt Additional Instructions: F/u at [facility] if no established PCP Follow up with: ENDER MACKAY MD [Primary Care Provider] - 3-5 Days FABIAN MENDEZ MD [Staff Physician] - 7 Days Prescriptions: levoFLOXacin [Levaquin TAB] 500 mg PO QDAY #5 tablet
[2018-10-08 11:30] LABS: Hematocrit 25.6 % (30.3-42.9)
[2018-10-08] MEDS: FEOSOL PO SCH (12:35)
[2018-10-08] MEDS: VITAMIN C PO SCH (12:36)
[2018-10-08] MEDS: DELTASONE PO SCH (12:36)
[2018-10-08] MEDS: FOLVITE PO SCH (12:36)
[2018-10-08] MEDS: ELIQUIS PO SCH (12:36)
[2018-10-08] MEDS: ARICEPT PO SCH (12:36)
[2018-10-08] MEDS: COREG PO SCH (12:36)
[2018-10-08] MEDS: SODIUM CHLORIDE FLUSH SYRINGE 10 ML IV SCH (12:37)
[2018-10-08 12:42] VITALS: BP 118/64
[2018-10-08] MEDS: NAMENDA PO SCH (12:42)
[2018-10-08] MEDS: TRICOR PO SCH (12:42)
--- NOTE | 2018-10-08 13:20 | Progress Note ---
Assessment and Plan Currently stable cardiac status. Pt may discharge home from cardiology standpoint on home cardiac regimen. Recommend pt follow up in our office with Dr. Mendez within 1-2 weeks of hospital discharge ([phone]). Pt's verbalizes understanding. The patient has been seen in conjunction with Dr. Esteban Valles who agrees with the assessment and plan of care. - Patient Problems (1) Syncope Current Visit: Yes Status: Suspected (2) UTI (urinary tract infection) Current Visit: Yes Status: Acute (3) Dehydration Current Visit: Yes Status: Acute (4) Anemia Current Visit: Yes Status: Chronic (5) Renal insufficiency Current Visit: Yes Status: Acute (6) Hyperkalemia Current Visit: Yes Status: Acute (7) NICM (nonischemic cardiomyopathy) Current Visit: Yes Status: Acute (8) LV (left ventricular) mural thrombus Current Visit: No Status: Resolved (9) Anticoagulant long-term use Current Visit: Yes Status: Chronic (10) LBBB (left bundle branch block) Current Visit: Yes Status: Chronic (11) Dementia Current Visit: Yes Status: Chronic Subjective Date of service: 10/08/18 Principal diagnosis: UTI Interval history: pt resting in bed, states she is feeling better today, at bedside. Objective Last Vital Signs Temp 98.4 F 10/08/18 08:32 Pulse 87 10/08/18 08:32 Resp 18 10/08/18 08:32 BP 118/64 10/08/18 12:36 Pulse Ox 97 10/08/18 08:32 - Physical Examination General: No Apparent Distress HEENT: Positive: PERRL, Normocephaly, Mucus Membranes Moist Neck: Positive: neck supple, trachea midline Cardiac: Positive: Reg Rate and Rhythm, S1/S2 Lungs: Positive: clear to auscultation Neuro: Positive: Grossly Intact Abdomen: Positive: Soft. Negative: Tender Skin: Negative: Rash, Wound Musculoskeletal: No Pain Extremities: Absent: edema - Labs and Meds CBC 10/08/18 Range/Units 10:58 Hgb 8.0 L (10.1-14.3) gm/dl Hct 25.6 L (30.3-42.9) % Comprehensive Metabolic Panel 10/08/18 Range/Units 04:37 Sodium 145 (137-145) mmol/L Potassium 5.0 (3.6-5.0) mmol/L Chloride 116.5 H (98-107) mmol/L Carbon Dioxide 18 L (22-30) mmol/L BUN 22 H (7-17) mg/dL Creatinine 1.1 (0.7-1.2) mg/dL Glucose 110 H (65-100) mg/dL Calcium 8.0 L (8.4-10.2) mg/dL - Imaging and Cardiology EKG: report reviewed, image reviewed Echo: report reviewed (09/01/2018 showed EF 25-30%, LV mod dilated, no intracardiac mass or thrombus identified. ) - EKG Sinus rhythms and dysrhythmias: sinus rhythm AV and intraventricular conduction: left bundle branch block
--- NOTE | 2018-10-13 12:16 | Query- SIRS ---
Dear _Elisa Date:___10/13/2018 Therapeutic Recreation Director/CDS:___Sara/Marco Phone#:___[phone] Exercise your independent professional judgment when responding to query. Questions asked do not imply a particular answer is desired or expected. We greatly appreciate your clarification on this issue. Clinical Documentation States: The Hospitalist (Dr. Pérez) progress note on 10/07/2018 stated "Acute renal failure, likely vasomotor nephropathy - Improved after fluid administration." Clinical Findings Show (include reference to source document): WBC (10/06): 18.8 BP: 84/45 Based on the above clinical scenario and your knowledge of the patient, please indicate the most appropriate diagnosis: [ ] SIRS (non-infectious) with Acute Organ Dysfunction [ ] SIRS (non-infectious) without Acute Organ Dysfunction [ x] Other:__Sepsis 2 UTI [ ] Unable to determine [ ] Comment/Explanation: Present on Admission: [ x] Yes (Y) [ ] Clinically undeterminable (W) [ ] No (N) Please also document response in your Progress Notes and/or Discharge Summary and indicate if the condition was present on admission. MTDD
== END 2018-10-08 16:15 | disposition home or self-care (01) | DRG 871 ==
LOC: ED 12:22 → 4A 14:56
PROVIDERS: ADMIT Internal Medicine; ATTEND Internal Medicine
DX: A41.9 Sepsis, unspecified organism (principal); N17.0 Acute kidney failure with tubular necrosis; N39.0 Urinary tract infection, site not specified; I42.9 Cardiomyopathy, unspecified; R55 Syncope and collapse; D64.9 Anemia, unspecified; F03.90 Unspecified dementia, unspecified severity, without behavioral disturbance, psychotic disturbance, mood disturbance, and anxiety; E86.0 Dehydration; E78.5 Hyperlipidemia, unspecified; M81.0 Age-related osteoporosis without current pathological fracture; I50.9 Heart failure, unspecified; I44.7 Left bundle-branch block, unspecified; F31.9 Bipolar disorder, unspecified; E87.5 Hyperkalemia; I11.0 Hypertensive heart disease with heart failure; Z90.710 Acquired absence of both cervix and uterus; Z79.01 Long term (current) use of anticoagulants; Z82.49 Family history of ischemic heart disease and other diseases of the circulatory system; Z79.899 Other long term (current) drug therapy; Z91.013 Allergy to seafood
CPT/HCPCS: 36415; 70450; 71045; 80048; 80053; 81001; 82140; 82550; 82553; 82805; 82962; 83036; 83735; 84484; 85014; 85018; 85025; 85610; 85730; 87040; 87086; 87116; 93005; 93010; 93880; 96374; 96375; G0378; J0696; J1956; J7030; J7040; J7512

== ENCOUNTER 2018-12-23 01:36 | Emergency (ER) | payer MEDICARE, OTHER ==
[2018-12-23 02:30] LABS: Basophils % (Auto) 0.3 % (0.0-1.8); Eosinophils # (Auto) 0.1 K/mm3 (0.0-0.4); Eosinophils % (Auto) 0.3 % (0.0-4.3); Hemoglobin 9.1 gm/dl (10.1-14.3); Lymphocytes # (Auto) 1.8 K/mm3 (1.2-5.4); Lymphocytes % (Auto) 11.7 % (13.4-35.0); Mean Corpuscular HGB Conc 31 % (30-34); Monocytes # (Auto) 0.7 K/mm3 (0.0-0.8); Monocytes % (Auto) 4.9 % (0.0-7.3); Platelet Count 474 K/mm3 (140-440); Red Blood Count 4.43 M/mm3 (3.65-5.03); Red Cell Distribution Width 16.5 % (13.2-15.2)
[2018-12-23 02:59] LABS: Mean Corpuscular Volume 66 fl (79-97)
== END 2018-12-23 02:00 | disposition left against medical advice (07) ==
LOC: ED 01:36
DX: R19.7 Diarrhea, unspecified (principal); Z53.21 Procedure and treatment not carried out due to patient leaving prior to being seen by health care provider
CPT/HCPCS: 36415; 80048; 85025

== ENCOUNTER 2018-12-29 13:58 | Inpatient (IN) | payer MEDICARE, OTHER ==
[2018-12-29 15:54] LABS: Basophils # (Auto) 0.1 K/mm3 (0.0-0.1); Basophils % (Auto) 0.6 % (0.0-1.8); Eosinophils # (Auto) 0.1 K/mm3 (0.0-0.4); Eosinophils % (Auto) 0.9 % (0.0-4.3); Hematocrit 31.7 % (30.3-42.9); Hemoglobin 9.9 gm/dl (10.1-14.3); Lymphocytes # (Auto) 2.2 K/mm3 (1.2-5.4); Lymphocytes % (Auto) 18.9 % (13.4-35.0); Mean Corpuscular HGB Conc 31 % (30-34); Monocytes # (Auto) 0.8 K/mm3 (0.0-0.8); Monocytes % (Auto) 6.8 % (0.0-7.3); Platelet Count 440 K/mm3 (140-440); Red Cell Distribution Width 17.8 % (13.2-15.2)
[2018-12-29 16:00] LABS: Mean Corpuscular Volume 66 fl (79-97)
[2018-12-29 16:08] LABS: Albumin 3.2 g/dL (3.9-5); Bilirubin,Direct 0.3 mg/dL (0-0.2); Calcium 8.5 mg/dL (8.4-10.2)
[2018-12-29] MEDS ORDERED: NACL 0.9% 1000 ML 1,000 ML IV ONE (16:22)
--- NOTE | 2018-12-29 16:28 | Emergency Department Report ---
HPI - General Chief Complaint: Pain General Time Seen by Provider: 12/29/18 16:07 - HPI HPI: Room 25 The patient is a 73-year-old female presented with a chief complaint of diarrhea. Over the past 3-4 days and reports the patient has had "terrible" diarrhea. The patient with her primary physician and was given Lomotil as well as a probiotic. This morning the patient told family, "I feel horrible" but did not give any specific complaints. The patient tells me she has had intermittent abdominal pain. Family states the patient complained of nausea earlier but none now. Family states patient was on antibiotics approximately 1-1.5 months ago for UTI. There's been no history of fever Location: Abdomen Duration: [See above] Quality: Pain Severity: Moderate Modifying factors: [see above] Context: [see above] Mode of transportation: [not driving] ED Past Medical Hx - Past Medical History Hx Hypertension: Yes Hx Congestive Heart Failure: Yes Hx Arthritis: Yes (rheumatoid arthritis) Additional medical history: dementia - Surgical History Past Surgical History?: Yes Additional Surgical History: HYSTERECTOMY - Family History Family history: no significant - Social History Smoking Status: Never Smoker Substance Use Type: Alcohol (occasional) - Medications Home Medications: Home Medications Medication Instructions Recorded Confirmed Last Taken Type Alendronate Sodium [Fosamax] 70 mg PO QWEEK 10/06/18 11/17/18 10/04/18 History Apixaban [Eliquis] 2.5 mg PO BID 10/06/18 11/17/18 10/06/18 History Ascorbic Acid [Vitamin C] 500 mg PO QDAY 10/06/18 11/17/18 Unknown History Carvedilol [Coreg] 6.25 mg PO BID 10/06/18 11/17/18 10/06/18 History Cyanocobalamin (Vitamin B-12) 1,000 mcg PO DAILY 10/06/18 11/17/18 Unknown History [Vitamin B-12] Donepezil [Aricept] 10 mg PO QDAY 10/06/18 11/17/18 10/06/18 History Fenofibrate 160 mg PO DAILY 10/06/18 11/17/18 10/06/18 History Ferrous Sulfate [Feosol 325 MG tab] 325 mg PO BID 10/06/18 11/17/18 10/06/18 History Folic Acid [Folvite] 1 mg PO QDAY 10/06/18 11/17/18 10/06/18 History Furosemide [Lasix TAB] 40 mg PO Q48H 10/06/18 11/17/18 Unknown History Memantine [Namenda] 5 mg PO BID 10/06/18 11/17/18 10/06/18 History QUEtiapine [SEROquel] 25 mg PO BID 10/06/18 11/17/18 10/06/18 History predniSONE [Prednisone] 5 mg PO BID 10/06/18 11/17/18 10/06/18 History ED Review of Systems ROS: Stated complaint: FELLS BAD ALL OVER Other details as noted in HPI Constitutional: denies: fever Eyes: denies: eye pain ENT: denies: throat pain Respiratory: no symptoms reported Cardiovascular: denies: chest pain Endocrine: no symptoms reported Gastrointestinal: abdominal pain, nausea, diarrhea. denies: vomiting Genitourinary: denies: dysuria Musculoskeletal: denies: back pain Neurological: denies: headache Physical Exam - Physical Exam Vital Signs: Vital Signs 12/29/18 14:08 Temperature 97.5 F L Pulse Rate 88 Respiratory 18 Rate Blood Pressure 138/88 O2 Sat by Pulse 95 Oximetry Physical Exam: GENERAL: The patient is well-developed well-nourished female lying on stretcher not appearing to be in acute distress. [] HEENT: Normocephalic. Atraumatic. Extraocular motions are intact. Patient has moist mucous membranes. NECK: Supple. Trachea midline CHEST/LUNGS: Clear to auscultation. There is no respiratory distress noted. HEART/CARDIOVASCULAR: Regular. There is no tachycardia. There is no gallop rub or murmur. ABDOMEN: Abdomen is soft, nontender. Patient has normal bowel sounds. There is no abdominal distention. SKIN: There is no rash. There is no edema. There is no diaphoresis. NEURO: The patient is awake, alert, and oriented. The patient is cooperative. The patient has normal speech MUSCULOSKELETAL: There is no evidence of acute injury. ED Course Vital Signs 12/29/18 14:08 Temperature 97.5 F L Pulse Rate 88 Respiratory 18 Rate Blood Pressure 138/88 O2 Sat by Pulse 95 Oximetry ED Medical Decision Making - Lab Data Result diagrams: 12/29/18 15:36 12/29/18 15:36 Laboratory Tests 12/29/18 12/29/18 12/29/18 15:36 15:36 17:44 WBC 11.6 H RBC 4.80 Hgb 9.9 L Hct 31.7 MCV 66 L MCH 21 L MCHC 31 RDW 17.8 H Plt Count 440 Lymph % (Auto) 18.9 [place] % (Auto) 6.8 Eos % (Auto) 0.9 Baso % (Auto) 0.6 Lymph # 2.2 [place] # 0.8 Eos # 0.1 Baso # 0.1 Seg Neutrophils % 72.8 H Seg Neutrophils # 8.5 H Sodium 139 Potassium 4.2 Chloride 108.8 H Carbon Dioxide 17 L Anion Gap 17 BUN 23 H Creatinine 1.0 Estimated GFR 54 BUN/Creatinine Ratio 23 Glucose 107 H Calcium 8.5 Total Bilirubin 1.00 Direct Bilirubin 0.3 H Indirect Bilirubin 0.7 AST 46 H ALT 20 Alkaline Phosphatase 34 L Total Protein 6.0 L Albumin 3.2 L Albumin/Globulin Ratio 1.1 Lipase 44 Urine Color Samantha Urine Turbidity Turbid Urine pH 5.0 Ur Specific [place] 1.024 Urine Protein >500 Urine Glucose (UA) Neg Urine Ketones Tr Urine Blood Lg Urine Nitrite Neg Urine Bilirubin Neg Urine Urobilinogen < 2.0 Ur Leukocyte Esterase Mod Urine WBC (Auto) 40.0 H Urine RBC (Auto) 47.0 Amorphous Crystals 1+ Urine Mucus 1+ - Radiology Data Radiology results: report reviewed (CT abdomen and pelvis), image reviewed (CT abdomen and pelvis) [facility] [address] [place] [address] Cat Scan Report Signed Patient: RENÉE SERRANO MR#: [id number] : 1945 Acct:[id number] Age/Sex: 73 / F ADM Date: 12/29/18 Loc: ED Attending Dr: Ordering Physician: OLVIN DE LA VEGA MD Date of Service: 12/29/18 Procedure(s): CT abdomen pelvis w con Accession Number(s): [id number] cc: OLVIN DE LA VEGA MD PROCEDURE: CT ABDOMEN PELVIS W CON TECHNIQUE: Computerized axial tomography of the abdomen and pelvis was performed after the IV injection of iodinated nonionic contrast. CT DOSE LENGTH PRODUCT: 1926.5 mGycm HISTORY: intermittent lower abdominal pain, diarrhea COMPARISONS: None . FINDINGS: Visualized lower thorax: Heart is enlarged. Liver: Liver measures 22 cm craniocaudal. No focal hepatic lesions are seen. Spleen: Normal size and attenuation. Gallbladder and biliary system: Calcified gallstones are present within the gallbladder lumen. Pancreas: Normal. Adrenals: Normal. Kidneys: Normal. GI tract: Appendix is visualized and does not appear inflamed . No bowel obstruction or inflammation. Lymph nodes and mesentery: Normal. Vasculature: Normal.. Bladder: Normal. Reproductive organs: Normal. Peritoneum: No free fluid. Musculoskeletal structures: No significant abnormality. Other: There is a fat and fluid containing right inguinal hernia located lateral and posterior to the right inguinal canal . IMPRESSION: Cholelithiasis. No bowel obstruction or inflammation. Right inguinal hernia as described above . This document is electronically signed by Bell Rosen MD., December 29 2018 08:01:21 PM ET Transcribed By: [facility] Dictated By: BELL ROSEN M.D. Electronically Authenticated By: BELL ROSEN M.D. Signed Date/Time: 12/29/182002 DD/ 42 TD/TT: 12/29/181843 - Differential Diagnosis C. difficile colitis, gastroenteritis, diverticulitis, dehydration Critical care attestation.: If time is entered above; I have spent that time in minutes in the direct care of this critically ill patient, excluding procedure time. ED Disposition Clinical Impression: Acute abdominal pain, Diarrhea, Dehydration, UTI (urinary tract infection) Disposition: OP ADMIT IP TO THIS HOSP Is pt being admited?: Yes Does the pt Need Aspirin: No Condition: Fair Referrals: ALFREDO NEWMAN MD [Primary Care Provider] - 3-5 Days Time of Disposition: 20:08 (hospitalist paged)
[2018-12-29 18:27] LABS: Amorphous Crystals,Urine 1+; Bilirubin,Urine NEG (Negative); Blood,Urine LG (Negative); Color,Urine Amber (Yellow); Mucus,Urine 1+ /HPF; Protein,Urine >500 mg/dL (Negative); Urobilinogen,Urine < 2.0 mg/dL (<2.0)
--- NOTE | 2018-12-29 20:03 | Cat Scan Report ---
PROCEDURE: CT ABDOMEN PELVIS W CON TECHNIQUE: Computerized axial tomography of the abdomen and pelvis was performed after the IV inject ion of iodinated nonionic contrast. CT DOSE LENGTH PRODUCT: 1926.5 mGycm HISTORY: intermittent lower abdominal pain, diarrhea COMPARISONS: None . FINDINGS: Visualized lower thorax: Heart is enlarged. Liver: Liver measures 22 cm craniocaudal. No focal hepatic lesions are seen. Spleen: Normal size and attenuation. Gallbladder and biliary system: Calcified gallstones are present within the gallbladder lumen. Pancreas: Normal. Adrenals: Normal. Kidneys: Normal. GI tract: Appendix is visualized and does not appear inflamed . No bowel obstruction or inflammation . Lymph nodes and mesentery: Normal. Vasculature: Normal.. Bladder: Normal. Reproductive organs: Normal. Peritoneum: No free fluid. Musculoskeletal structures: No significant abnormality. Other: There is a fat and fluid containing right inguinal hernia located lateral and posterior to th e right inguinal canal . IMPRESSION: Cholelithiasis. No bowel obstruction or inflammation. Right inguinal hernia as described above . This document is electronically signed by Bell Rosen MD., December 29 2018 08:01:21 PM ET
[2018-12-29] MEDS ORDERED: LEVAQUIN PO ONE (20:11)
--- NOTE | 2018-12-29 22:41 | History and Physical Report ---
History of Present Illness Date of examination: 12/29/18 History of present illness: 73-year-old woman with a history of CHF, dementia, arthritis was brought to the emergency room by family because she stated that she felt horrible. Patient and is unable to give any other history. She had diarrhea over the weekend with vomiting, diarrhea is now resolved, she saw her primary care physician who prescribed her probiotic. Complaining of cough productive of white phlegm. Difficult to obtain review of systems secondary to dementia PAST MEDICAL HISTORY:CHF, dementia, arthritis PAST SURGICAL HISTORY: Hysterectomy SOCIAL HISTORY: Denies alcohol, drugs, tobacco FAMILY HISTORY: Hypertension Medications and Allergies Allergies Allergy/AdvReac Type Severity Reaction Status Date / Time shellfish derived AdvReac Rash Verified 06/14/18 14:19 Home Medications Medication Instructions Recorded Confirmed Last Taken Type Alendronate Sodium [Fosamax] 70 mg PO QWEEK 10/06/18 12/29/18 12/29/18 History Apixaban [Eliquis] 2.5 mg PO BID 10/06/18 12/29/18 12/29/18 History Ascorbic Acid [Vitamin C] 500 mg PO QDAY 10/06/18 12/29/18 12/29/18 History Carvedilol [Coreg] 6.25 mg PO BID 10/06/18 12/29/18 12/29/18 History Cyanocobalamin (Vitamin B-12) 1,000 mcg PO DAILY 10/06/18 12/29/18 12/29/18 History [Vitamin B-12] Donepezil [Aricept] 10 mg PO Q48H 10/06/18 12/29/18 10/06/18 History Fenofibrate 160 mg PO DAILY 10/06/18 12/29/18 12/29/18 History Ferrous Sulfate [Feosol 325 MG tab] 325 mg PO BID 10/06/18 12/29/18 12/29/18 History Folic Acid [Folvite] 1 mg PO QDAY 10/06/18 12/29/18 12/29/18 History Furosemide [Lasix TAB] 40 mg PO Q48H 10/06/18 12/29/18 Unknown History Memantine [Namenda] 5 mg PO BID 10/06/18 12/29/18 12/29/18 History QUEtiapine [SEROquel] 25 mg PO BID 10/06/18 12/29/18 12/29/18 History predniSONE [Prednisone] 5 mg PO BID 10/06/18 12/29/18 12/29/18 History Active Meds: Active Medications Sodium Chloride (Nacl 0.9% 1000 Ml) 1,000 mls @ 125 mls/hr IV ONCE ONE Stop: 12/30/18 00:21 Last Admin: 12/29/18 16:50 Dose: 125 mls/hr Documented by: Exam - Physical Exam Narrative exam: General Apperance: The patient lying in bed, breathing comfortable HEENT: Normocephalic, atraumatic. Pupils equally round and reactive to light, EOMI, no sclericterus or JVD or thyromegaly or nodule. , no carotid bruit, mucous membranes moist, no exudate or erythema Heart: S1-S2, regular is rhythm Lungs coarse but no wheezing bilaterally, breathing comfortable Abdomen: Positive bowel sounds, soft, nontender, nondistended, no organomegaly Extremities: No edema cyanosis clubbing Skin: no rash, nodule, warm and dry Neuro: cranial nerves 2-12 intact, speech is fluent, motor/sensory intact - Constitutional Vitals: Temp Pulse Resp BP Pulse Ox 98.0 F 86 15 138/83 96 12/29/18 20:15 12/29/18 20:15 12/29/18 20:15 12/29/18 20:15 12/29/18 20:15 Results - Labs CBC & Chem 7: 12/29/18 15:36 12/29/18 15:36 Labs: Abnormal lab results 12/29/18 12/29/18 12/29/18 Range/Units 15:36 15:36 17:44 WBC 11.6 H (4.5-11.0) K/mm3 Hgb 9.9 L (10.1-14.3) gm/dl MCV 66 L (79-97) fl MCH 21 L (28-32) pg RDW 17.8 H (13.2-15.2) % Seg Neutrophils % 72.8 H (40.0-70.0) % Seg Neutrophils # 8.5 H (1.8-7.7) K/mm3 Chloride 108.8 H (98-107) mmol/L Carbon Dioxide 17 L (22-30) mmol/L BUN 23 H (7-17) mg/dL Glucose 107 H (65-100) mg/dL Direct Bilirubin 0.3 H (0-0.2) mg/dL AST 46 H (5-40) units/L Alkaline Phosphatase 34 L (35-129) units/L Total Protein 6.0 L (6.3-8.2) g/dL Albumin 3.2 L (3.9-5) g/dL Urine WBC (Auto) 40.0 H (0.0-6.0) /HPF - Imaging and Cardiology EKG: image reviewed Chest x-ray: report reviewed Assessment and Plan Assessment Acute bronchitis CHF, stable dementia arthritis Plan Admit to medicine Start nebulizer treatments, IV steroids Rocephin for UTI, continue appropriate outpatient medications DVT prophylaxis
[2018-12-29] MEDS ORDERED: SODIUM CHLORIDE FLUSH SYRINGE 10 ML IV PRN (23:03)
[2018-12-29] MEDS ORDERED: ZOFRAN IV PRN (23:03)
[2018-12-30] MEDS ORDERED: SOLU-Medrol ONE (00:30)
[2018-12-30] MEDS: SOLU-Medrol IV SCH ×3 (00:32→22:50)
[2018-12-30] MEDS: TYLENOL PO PRN ×2 (01:41→21:07)
[2018-12-30] MEDS: DUONEB *Not for PRN Use IH SCH ×4 (02:00→19:54)
[2018-12-30] MEDS ORDERED: LASIX PO SCH (06:00)
[2018-12-30 06:12] LABS: Hematocrit 31.2 % (30.3-42.9); Hemoglobin 9.7 gm/dl (10.1-14.3); Mean Corpuscular HGB Conc 31 % (30-34); Platelet Count 407 K/mm3 (140-440); Red Blood Count 4.67 M/mm3 (3.65-5.03); Red Cell Distribution Width 18.3 % (13.2-15.2)
[2018-12-30 06:21] LABS: BUN/Creatinine Ratio 24; Blood Urea Nitrogen 22 mg/dL (7-17); Calcium 8.1 mg/dL (8.4-10.2)
[2018-12-30 06:22] LABS: Hemolysis Index 1
[2018-12-30 06:27] LABS: Mean Corpuscular Volume 67 fl (79-97)
[2018-12-30 07:53] LABS: Anisocytosis 1+; Band Neutrophils # (Manual) 0.1 K/mm3; Basophils % (Manual) 0 % (0.0-1.8); Eosinophils % (Manual) 0 % (0.0-4.3); Hypochromasia 1+; Ovalocytes 1+; Tear Drop Cells Rare; Total Cells Counted 100
[2018-12-30] MEDS ORDERED: ARICEPT PO SCH (08:00)
[2018-12-30] MEDS ORDERED: LOVENOX SUB-Q SCH (10:00)
[2018-12-30] MEDS: SODIUM CHLORIDE FLUSH SYRINGE 10 ML IV SCH ×2 (10:00→21:42)
[2018-12-30] MEDS: NAMENDA PO SCH ×2 (10:02→21:06)
[2018-12-30] MEDS: FEOSOL PO SCH ×2 (10:03→21:06)
[2018-12-30] MEDS: VITAMIN B-12 PO SCH (10:03)
[2018-12-30] MEDS: ELIQUIS PO SCH ×2 (10:04→21:06)
[2018-12-30] MEDS: TRICOR PO SCH (10:04)
[2018-12-30] MEDS: COREG PO SCH ×2 (10:04→21:06)
[2018-12-30] MEDS: VITAMIN C PO SCH (10:04)
[2018-12-30] MEDS: FOLVITE PO SCH (10:04)
--- NOTE | 2018-12-30 10:58 | Progress Note ---
Assessment and Plan Assessment and plan: --Not feeling well/general debility; Supportive care, physical therapy as needed --Urinary tract infection; follow cultures Empiric antibiotics, --History of chronic systolic congestive heart failure; Well compensated, continue current cardiac medications --History of AICD; stable --Dementia; continue current home medications --DVT prophylaxis; patient is already on Eliquis --FULL CODE STATUS History monitor the patient and adjust the management as needed Possible discharge home tomorrow if stable I called her Mr. Robinson Ambrosio [phone] and informed patient's condition Treatment and discharge planning, answered all his questions Plan of care is reviewed with the patient's nurse History Interval history: Patient seen and examined this morning medical records reviewed Patient was admitted with history of not feeling well, leukocytosis UTI on urine analysis and vague symptoms Today patient feels slightly better Alert and awake and responding appropriately, afebrile Complaints of generalized weakness Hospitalist Physical - Constitutional Vitals: Temp Pulse Resp BP Pulse Ox 97.9 F 78 18 128/82 95 12/30/18 07:31 12/30/18 10:04 12/30/18 07:31 12/30/18 10:04 12/30/18 07:31 General appearance: Present: no acute distress, well-nourished - EENT Eyes: Present: PERRL, EOM intact - Neck Neck: Present: supple, normal ROM - Respiratory Respiratory effort: normal Respiratory: bilateral: diminished, negative: rales, rhonchi, wheezing - Cardiovascular Rhythm: regular Heart Sounds: Present: S1 & S2 - Extremities Extremities: no ischemia, No edema - Abdominal General gastrointestinal: soft, non-tender, non-distended, normal bowel sounds - Integumentary Integumentary: Present: clear, warm - Psychiatric Psychiatric: appropriate mood/affect, cooperative - Neurologic Neurologic: moves all extremities Results - Labs CBC & Chem 7: 12/30/18 05:10 12/30/18 05:10 Labs: Laboratory Last Values WBC 9.7 K/mm3 (4.5-11.0) 12/30/18 05:10 RBC 4.67 M/mm3 (3.65-5.03) 12/30/18 05:10 Hgb 9.7 gm/dl (10.1-14.3) L 12/30/18 05:10 Hct 31.2 % (30.3-42.9) 12/30/18 05:10 MCV 67 fl (79-97) L 12/30/18 05:10 MCH 21 pg (28-32) L 12/30/18 05:10 MCHC 31 % (30-34) 12/30/18 05:10 RDW 18.3 % (13.2-15.2) H 12/30/18 05:10 Plt Count 407 K/mm3 (140-440) 12/30/18 05:10 Lymph % (Auto) 18.9 % (13.4-35.0) 12/29/18 15:36 [place] % (Auto) 6.8 % (0.0-7.3) 12/29/18 15:36 Eos % (Auto) 0.9 % (0.0-4.3) 12/29/18 15:36 Baso % (Auto) 0.6 % (0.0-1.8) 12/29/18 15:36 Lymph # 2.2 K/mm3 (1.2-5.4) 12/29/18 15:36 [place] # 0.8 K/mm3 (0.0-0.8) 12/29/18 15:36 Eos # 0.1 K/mm3 (0.0-0.4) 12/29/18 15:36 Baso # 0.1 K/mm3 (0.0-0.1) 12/29/18 15:36 Add Manual Diff Complete 12/30/18 05:10 Total Counted 100 12/30/18 05:10 Seg Neutrophils % Program Director 12/30/18 05:10 Seg Neuts % (Manual) 90.0 % (40.0-70.0) H 12/30/18 05:10 Band Neutrophils % 1.0 % 12/30/18 05:10 Lymphocytes % (Manual) 7.0 % (13.4-35.0) L 12/30/18 05:10 Reactive Lymphs % (Man) 0 % 12/30/18 05:10 Monocytes % (Manual) 2.0 % (0.0-7.3) 12/30/18 05:10 Eosinophils % (Manual) 0 % (0.0-4.3) 12/30/18 05:10 Basophils % (Manual) 0 % (0.0-1.8) 12/30/18 05:10 Metamyelocytes % 0 % 12/30/18 05:10 Myelocytes % 0 % 12/30/18 05:10 Promyelocytes % 0 % 12/30/18 05:10 Blast Cells % 0 % 12/30/18 05:10 Nucleated RBC % 4.0 % (0.0-0.9) H 12/30/18 05:10 Seg Neutrophils # 8.5 K/mm3 (1.8-7.7) H 12/29/18 15:36 Seg Neutrophils # Man 8.7 K/mm3 (1.8-7.7) H 12/30/18 05:10 Band Neutrophils # 0.1 K/mm3 12/30/18 05:10 Lymphocytes # (Manual) 0.7 K/mm3 (1.2-5.4) L 12/30/18 05:10 Abs React Lymphs (Man) 0.0 K/mm3 12/30/18 05:10 Monocytes # (Manual) 0.2 K/mm3 (0.0-0.8) 12/30/18 05:10 Eosinophils # (Manual) 0.0 K/mm3 (0.0-0.4) 12/30/18 05:10 Basophils # (Manual) 0.0 K/mm3 (0.0-0.1) 12/30/18 05:10 Metamyelocytes # 0.0 K/mm3 12/30/18 05:10 Myelocytes # 0.0 K/mm3 12/30/18 05:10 Promyelocytes # 0.0 K/mm3 12/30/18 05:10 Blast Cells # 0.0 K/mm3 12/30/18 05:10 WBC Morphology Not Reportable 12/30/18 05:10 Hypersegmented Neuts Not Reportable 12/30/18 05:10 Hyposegmented Neuts Not Reportable 12/30/18 05:10 Hypogranular Neuts Not Reportable 12/30/18 05:10 Smudge Cells Not Reportable 12/30/18 05:10 Toxic Granulation Not Reportable 12/30/18 05:10 Toxic Vacuolation Not Reportable 12/30/18 05:10 Dohle Bodies Not Reportable 12/30/18 05:10 Pelger-Huet Anomaly Not Reportable 12/30/18 05:10 Rhonda Rods Not Reportable 12/30/18 05:10 Platelet Estimate Appears normal 12/30/18 05:10 Clumped Platelets Not Reportable 12/30/18 05:10 Plt Clumps, EDTA Not Reportable 12/30/18 05:10 Large Platelets Not Reportable 12/30/18 05:10 Giant Platelets Not Reportable 12/30/18 05:10 Platelet Satelliting Not Reportable 12/30/18 05:10 Plt Morphology Comment Not Reportable 12/30/18 05:10 RBC Morphology Not Reportable 12/30/18 05:10 Dimorphic RBCs Not Reportable 12/30/18 05:10 Polychromasia Rare 12/30/18 05:10 Hypochromasia 1+ 12/30/18 05:10 Poikilocytosis Not Reportable 12/30/18 05:10 Anisocytosis 1+ 12/30/18 05:10 Microcytosis Not Reportable 12/30/18 05:10 Macrocytosis Not Reportable 12/30/18 05:10 Spherocytes Not Reportable 12/30/18 05:10 Pappenheimer Bodies Not Reportable 12/30/18 05:10 Sickle Cells Not Reportable 12/30/18 05:10 Target Cells Not Reportable 12/30/18 05:10 Tear Drop Cells Rare 12/30/18 05:10 Ovalocytes 1+ 12/30/18 05:10 Helmet Cells Not Reportable 12/30/18 05:10 Hirsch-Whiteside Bodies Not Reportable 12/30/18 05:10 [place] Rings Not Reportable 12/30/18 05:10 Gate Cells Not Reportable 12/30/18 05:10 Bite Cells Not Reportable 12/30/18 05:10 Crenated Cell Not Reportable 12/30/18 05:10 Elliptocytes Not Reportable 12/30/18 05:10 Acanthocytes (Spur) Not Reportable 12/30/18 05:10 Rouleaux Not Reportable 12/30/18 05:10 Hemoglobin C Crystals Not Reportable 12/30/18 05:10 Schistocytes Not Reportable 12/30/18 05:10 Malaria parasites Not Reportable 12/30/18 05:10 Johnny Bodies Not Reportable 12/30/18 05:10 Hem Pathologist Commnt No 12/30/18 05:10 Sodium 142 mmol/L (137-145) 12/30/18 05:10 Potassium 4.7 mmol/L (3.6-5.0) 12/30/18 05:10 Chloride 110.7 mmol/L (98-107) H 12/30/18 05:10 Carbon Dioxide 15 mmol/L (22-30) L 12/30/18 05:10 Anion Gap 21 mmol/L 12/30/18 05:10 BUN 22 mg/dL (7-17) H 12/30/18 05:10 Creatinine 0.9 mg/dL (0.7-1.2) 12/30/18 05:10 Estimated GFR > 60 ml/min 12/30/18 05:10 BUN/Creatinine Ratio 24 % 12/30/18 05:10 Glucose 132 mg/dL (65-100) H 12/30/18 05:10 Calcium 8.1 mg/dL (8.4-10.2) L 12/30/18 05:10 Total Bilirubin 1.00 mg/dL (0.1-1.2) 12/29/18 15:36 Direct Bilirubin 0.3 mg/dL (0-0.2) H 12/29/18 15:36 Indirect Bilirubin 0.7 mg/dL 12/29/18 15:36 AST 46 units/L (5-40) H 12/29/18 15:36 ALT 20 units/L (7-56) 12/29/18 15:36 Alkaline Phosphatase 34 units/L (35-129) L 12/29/18 15:36 Total Protein 6.0 g/dL (6.3-8.2) L 12/29/18 15:36 Albumin 3.2 g/dL (3.9-5) L 12/29/18 15:36 Albumin/Globulin Ratio 1.1 % 12/29/18 15:36 Lipase 44 units/L (13-60) 12/29/18 15:36 Urine Color Samantha (Yellow) 12/29/18 17:44 Urine Turbidity Turbid (Clear) 12/29/18 17:44 Urine pH 5.0 (5.0-7.0) 12/29/18 17:44 Ur Specific [place] 1.024 (1.003-1.030) 12/29/18 17:44 Urine Protein >500 mg/dL (Negative) 12/29/18 17:44 Urine Glucose (UA) Neg mg/dL (Negative) 12/29/18 17:44 Urine Ketones Tr mg/dL (Negative) 12/29/18 17:44 Urine Blood Lg (Negative) 12/29/18 17:44 Urine Nitrite Neg (Negative) 12/29/18 17:44 Urine Bilirubin Neg (Negative) 12/29/18 17:44 Urine Urobilinogen < 2.0 mg/dL (<2.0) 12/29/18 17:44 Ur Leukocyte Esterase Mod (Negative) 12/29/18 17:44 Urine WBC (Auto) 40.0 /HPF (0.0-6.0) H 12/29/18 17:44 Urine RBC (Auto) 47.0 /HPF (0.0-6.0) 12/29/18 17:44 Amorphous Crystals 1+ 12/29/18 17:44 Urine Mucus 1+ /HPF 12/29/18 17:44 Active Medications - Current Medications Current Medications: Generic Name Dose Route Start Last Admin Trade Name Freq PRN Reason Stop Dose Admin Acetaminophen 650 mg 12/29/18 23:03 12/30/18 01:41 Tylenol PO 650 mg Q4H PRN Administration Pain MILD(1-3)/Fever >100.5/DINH Albuterol/Ipratropium 1 ampul 12/30/18 02:00 12/30/18 07:19 Duoneb *Not For Prn Use* IH 1 ampul Q6HRT FABI Administration Apixaban 2.5 mg 12/30/18 10:00 12/30/18 10:04 Eliquis PO 2.5 mg BID FABI Administration Protocol Ascorbic Acid 500 mg 12/30/18 10:00 12/30/18 10:04 Vitamin C PO 500 mg QDAY FABI Administration Carvedilol 6.25 mg 12/30/18 10:00 12/30/18 10:04 Coreg PO 6.25 mg BID FABI Administration Cyanocobalamin 1,000 mcg 12/30/18 10:00 12/30/18 10:03 Vitamin B-12 PO 1,000 mcg DAILY FABI Administration Donepezil HCl 10 mg 12/30/18 08:00 12/30/18 10:04 Aricept PO 10 mg Q48H FABI Administration Fenofibrate 145 mg 12/30/18 10:00 12/30/18 10:04 Tricor PO 145 mg DAILY FABI Administration Ferrous Sulfate 325 mg 12/30/18 10:00 12/30/18 10:03 Feosol PO 325 mg BID FABI Administration Folic Acid 1 mg 12/30/18 10:00 12/30/18 10:04 Folvite PO 1 mg QDAY FABI Administration Furosemide 40 mg 12/30/18 06:00 12/30/18 06:21 Lasix PO 40 mg Q48H FABI Administration Memantine 5 mg 12/30/18 10:00 12/30/18 10:02 Namenda PO 5 mg BID FABI Administration Methylprednisolone Sodium Succinate 40 mg 12/30/18 00:00 12/30/18 10:02 Solu-Medrol IV 40 mg Q8H FABI Administration Ondansetron HCl 4 mg 12/29/18 23:03 Zofran IV Q8H PRN Nausea And Vomiting Quetiapine Fumarate 25 mg 12/30/18 10:00 12/30/18 10:03 Seroquel PO 25 mg BID FABI Administration Sodium Chloride 10 ml 12/30/18 10:00 12/30/18 10:00 Sodium Chloride Flush Syringe 10 Ml IV 10 ml BID FABI Administration Sodium Chloride 10 ml 12/29/18 23:03 Sodium Chloride Flush Syringe 10 Ml IV PRN PRN LINE FLUSH
[2018-12-30] MEDS ORDERED: ROCEPHIN/NS 1 GM/50 ML 1 GM/50 ML BAG IV SCH (18:00)
[2018-12-31] MEDS ORDERED: DUONEB *Not for PRN Use IH SCH (08:00)
[2018-12-31 08:50] VITALS: BP 136/78
[2018-12-31] MEDS: TYLENOL PO PRN (09:09)
[2018-12-31] MEDS: ELIQUIS PO SCH (09:11)
[2018-12-31] MEDS: VITAMIN B-12 PO SCH (09:11)
[2018-12-31] MEDS: TRICOR PO SCH (09:11)
[2018-12-31] MEDS: FOLVITE PO SCH (09:11)
[2018-12-31] MEDS: VITAMIN C PO SCH (09:11)
[2018-12-31] MEDS: FEOSOL PO SCH (09:11)
[2018-12-31] MEDS: NAMENDA PO SCH (09:11)
[2018-12-31] MEDS: SODIUM CHLORIDE FLUSH SYRINGE 10 ML IV SCH (09:12)
[2018-12-31] MEDS: COREG PO SCH (09:18)
--- NOTE | 2018-12-31 10:12 | Discharge Summary ---
Providers - Providers Date of Admission: 12/29/18 22:39 Date of discharge: 12/31/18 Attending physician: ROBERTA KEN Primary care physician: MIK CHAMBERS Hospitalization Reason for admission: Not feeling well and UI Condition: Fair Pertinent studies: CT abd and Pelvis Hospital course: Patient was admitted with not feeling well,UT. Symptomatically managed with emperic Abx Patients symptoms improved,tooday pt is better no new complaints,vital sgns stable DC home and f/u with PMD per schedule Pt is stable at dischage Discharge Diagnosis: --Not feeling well/general debility; Supportive care, physical therapy as needed --Urinary tract infection; follow cultures Empiric antibiotics, --History of chronic systolic congestive heart failure; Well compensated, continue current cardiac medications --History of AICD; stable --Dementia; continue current home medications --DVT prophylaxis; patient is already on Eliquis --FULL CODE STATUS Disposition: DC-01 TO HOME OR SELFCARE Time spent for discharge: 32 min Core Measure Documentation - Palliative Care Palliative Care/ Comfort Measures: Not Applicable - Core Measures Any of the following diagnoses?: none Exam - Constitutional Vitals: Temp Pulse Resp BP Pulse Ox 97.8 F 98 H 20 136/78 98 12/31/18 07:59 12/31/18 09:18 12/31/18 09:09 12/31/18 09:18 12/31/18 08:47 General appearance: Present: no acute distress, well-nourished - EENT Eyes: Present: PERRL, EOM intact - Neck Neck: Present: supple, normal ROM - Respiratory Respiratory effort: normal Respiratory: bilateral: diminished, negative: rales, rhonchi, wheezing - Cardiovascular Rhythm: regular Heart Sounds: Present: S1 & S2 - Extremities Extremities: no ischemia, No edema - Abdominal General gastrointestinal: Present: soft, non-tender, non-distended, normal bowel sounds - Integumentary Integumentary: Present: clear, warm - Musculoskeletal Musculoskeletal: strength equal bilaterally - Psychiatric Psychiatric: appropriate mood/affect, cooperative - Neurologic Neurologic: moves all extremities Plan Activity: no restrictions Diet: other (Cardiac diet) Additional Instructions: Advised to drink plenty fluids. Follow with urology per schedule Follow up with: ALFREDO NEWMAN MD [Referring] - 3-5 Days Prescriptions: Benzonatate [Tessalon Perle] 100 mg PO TID PRN #21 capsule PRN Reason: Cough
== END 2018-12-31 14:10 | disposition home or self-care (01) | DRG 202 ==
LOC: ED 13:58 → 2B-ACE 22:39
PROVIDERS: ADMIT Internal Medicine; ATTEND Internal Medicine
DX: J20.9 Acute bronchitis, unspecified (principal); N39.0 Urinary tract infection, site not specified; I50.22 Chronic systolic (congestive) heart failure; R19.7 Diarrhea, unspecified; I11.0 Hypertensive heart disease with heart failure; E86.0 Dehydration; M06.9 Rheumatoid arthritis, unspecified; F03.90 Unspecified dementia, unspecified severity, without behavioral disturbance, psychotic disturbance, mood disturbance, and anxiety; Z90.710 Acquired absence of both cervix and uterus; Z79.01 Long term (current) use of anticoagulants; Z79.899 Other long term (current) drug therapy; Z82.49 Family history of ischemic heart disease and other diseases of the circulatory system; Z95.810 Presence of automatic (implantable) cardiac defibrillator
CPT/HCPCS: 36415; 74177; 80048; 80076; 81001; 83690; 85007; 85025; 94640; 94760; 96361; 96374; G0378; J0696; J2405; J2920; J7030; Q9967

== ENCOUNTER 2019-01-06 16:17 | Inpatient (IN) | payer MEDICARE, OTHER ==
--- NOTE | 2019-01-06 16:34 | Emergency Department Report ---
ED Altered Mental Status HPI - General Stated Complaint: ALTERED MENTAL STATUS Time Seen by Provider: 01/06/19 16:17 Source: patient, family, EMS Mode of arrival: Stretcher Limitations: Altered Mental Status - History of Present Illness Initial Comments: Patient is a 73-year-old female that presents emergency room with complaints of altered mental status. is at bedside for histories. Patient was brought in by EMS. Report received from EMS. states that the patient was not answering questions appropriately. states that she was discharged from this hospital recently for altered mental status and a UTI and bronchitis. states that [facility] Patient denies chest pain. Patient denies pain at this time. states the patient is also having generalized weakness. The patient is A&O 2 but the patient is still answering questions appropriately. 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 denies: chest pain, cough, diaphoresis, fever/chills, headaches, loss of appetite, malaise, nausea/vomiting, rash, seizure, shortness of breath, syncope, weakness, diarrhea, incontinence - Related Data Home Medications Medication Instructions Recorded Confirmed Last Taken Alendronate Sodium [Fosamax] 70 mg PO QWEEK 10/06/18 12/29/18 12/29/18 Apixaban [Eliquis] 2.5 mg PO BID 10/06/18 12/29/18 12/29/18 Ascorbic Acid [Vitamin C] 500 mg PO QDAY 10/06/18 12/29/18 12/29/18 Carvedilol [Coreg] 6.25 mg PO BID 10/06/18 12/29/18 12/29/18 Cyanocobalamin (Vitamin B-12) 1,000 mcg PO DAILY 10/06/18 12/29/18 12/29/18 [Vitamin B-12] Donepezil [Aricept] 10 mg PO Q48H 10/06/18 12/29/18 10/06/18 Fenofibrate 160 mg PO DAILY 10/06/18 12/29/18 12/29/18 Ferrous Sulfate [Feosol 325 MG tab] 325 mg PO BID 01/11/2312/29/18 12/29/18 Folic Acid [Folvite] 1 mg PO QDAY 10/06/18 12/29/18 12/29/18 Furosemide [Lasix TAB] 40 mg PO Q48H 10/06/18 12/29/18 Unknown Memantine [Namenda] 5 mg PO BID 10/06/18 12/29/18 12/29/18 QUEtiapine [SEROquel] 25 mg PO BID 10/06/18 12/29/18 12/29/18 predniSONE [Prednisone] 5 mg PO BID 10/06/18 12/29/18 12/29/18 Diphenoxylate/Atropine [Lomotil] 1 tab PO Q4H PRN 12/30/18 12/30/18 12/29/18 14:00 Previous Rx's Medication Instructions Recorded Last Taken Type Benzonatate [Tessalon Perle] 100 mg PO TID PRN #21 capsule 12/31/18 Unknown Rx cefUROXime [Ceftin] 250 mg PO Q12H #14 tablet 12/31/18 Unknown Rx Allergies Allergy/AdvReac Type Severity Reaction Status Date / Time shellfish derived AdvReac Rash Verified 06/14/18 14:19 ED Review of Systems ROS: Stated complaint: ALTERED MENTAL STATUS Other details as noted in HPI Constitutional: denies: chills, fever Eyes: denies: eye pain, eye discharge, vision change ENT: denies: ear pain, throat pain Respiratory: cough. denies: shortness of breath, wheezing Cardiovascular: denies: chest pain, palpitations Endocrine: no symptoms reported Gastrointestinal: denies: abdominal pain, nausea, diarrhea Genitourinary: dysuria. denies: urgency, discharge Musculoskeletal: denies: back pain, joint swelling, arthralgia Skin: denies: rash, lesions Neurological: denies: headache, weakness, paresthesias Psychiatric: denies: anxiety, depression Hematological/Lymphatic: denies: easy bleeding, easy bruising ED Past Medical Hx - Past Medical History Previous Medical History?: Yes Hx Hypertension: Yes Hx Congestive Heart Failure: Yes Hx Arthritis: Yes Hx Dementia: Yes Additional medical history: dementia - Surgical History Past Surgical History?: Yes Additional Surgical History: HYSTERECTOMY - Family History Family history: no significant - Social History Smoking Status: Never Smoker Substance Use Type: None - Medications Home Medications: Home Medications Medication Instructions Recorded Confirmed Last Taken Type Alendronate Sodium [Fosamax] 70 mg PO QWEEK 10/06/18 12/29/18 12/29/18 History Apixaban [Eliquis] 2.5 mg PO BID 10/06/18 12/29/18 12/29/18 History Ascorbic Acid [Vitamin C] 500 mg PO QDAY 10/06/18 12/29/18 12/29/18 History Carvedilol [Coreg] 6.25 mg PO BID 10/06/18 12/29/18 12/29/18 History Cyanocobalamin (Vitamin B-12) 1,000 mcg PO DAILY 10/06/18 12/29/18 12/29/18 History [Vitamin B-12] Donepezil [Aricept] 10 mg PO Q48H 10/06/18 12/29/18 10/06/18 History Fenofibrate 160 mg PO DAILY 10/06/18 12/29/18 12/29/18 History Ferrous Sulfate [Feosol 325 MG tab] 325 mg PO BID 10/06/18 12/29/18 12/29/18 History Folic Acid [Folvite] 1 mg PO QDAY 10/06/18 12/29/18 12/29/18 History Furosemide [Lasix TAB] 40 mg PO Q48H 10/06/18 12/29/18 Unknown History Memantine [Namenda] 5 mg PO BID 10/06/18 12/29/18 12/29/18 History QUEtiapine [SEROquel] 25 mg PO BID 10/06/18 12/29/18 12/29/18 History predniSONE [Prednisone] 5 mg PO BID 10/06/18 12/29/18 12/29/18 History Diphenoxylate/Atropine [Lomotil] 1 tab PO Q4H PRN 12/30/18 12/30/18 12/29/18 14:00 History Benzonatate [Tessalon Perle] 100 mg PO TID PRN #21 capsule 12/31/18 Unknown Rx cefUROXime [Ceftin] 250 mg PO Q12H #14 tablet 12/31/18 Unknown Rx ED Physical Exam - General Limitations: Altered Mental Status General appearance: alert, in no apparent distress - Head Head exam: Present: atraumatic, normocephalic - Eye Eye exam: Present: normal appearance, PERRL Pupils: Present: normal accommodation - ENT ENT exam: Present: mucous membranes moist - Neck Neck exam: Present: normal inspection - Respiratory Respiratory exam: Present: normal lung sounds bilaterally. Absent: respiratory distress - Cardiovascular Cardiovascular Exam: Present: regular rate, normal rhythm. Absent: systolic mu rmur, diastolic murmur, rubs, gallop - GI/Abdominal GI/Abdominal exam: Present: soft, normal bowel sounds. Absent: distended, tenderness, guarding, rebound - Rectal Rectal exam: Present: deferred - Extremities Exam Extremities exam: Present: normal inspection, full ROM - Back Exam Back exam: Present: normal inspection, full ROM - Neurological Exam Neurological exam: Present: alert, altered (patient is A&O 2) - Psychiatric Psychiatric exam: Present: normal affect, normal mood - Skin Skin exam: Present: warm, dry, intact, normal color. Absent: rash - Assessment Assessment Interval: Baseline - Level of Consciousness 1a. Level of Consciousness: alert/keenly responsive - LOC Questions 1b. LOC Questions: answers both correctly - LOC Command 1c. LOC Commands: performs tasks correctly - Best Gaze 2. Best Gaze: normal - Visual 3. Visual: no visual loss - Facial Palsy 4. Facial Palsy: normal symmetrical movement - Motor Arm 5a. Motor Arm Left: no drift 5b. Motor Arm Right: no drift - Motor Leg 6a. Motor Leg Left: no drift 6b. Motor Leg Right: no drift - Limb Ataxia 7. Limb Ataxia: absent - Sensory 8. Sensory: normal - Best Language 9. Best Language: no aphasia - Dysarthria 10. Dysarthria: normal - Extinction and Inattention 11. Extinction/Inattention: no abnormality - Scoring Total Score: 0 Stroke Severity: No Stroke Symptoms ED Course Vital Signs 01/06/19 01/06/19 01/06/19 17:17 17:18 17:19 Pulse Rate 69 70 73 Respiratory 19 17 18 Rate Blood Pressure 111/68 111/68 O2 Sat by Pulse 92 93 Oximetry 01/06/19 01/06/19 01/06/19 18:33 18:35 18:37 Pulse Rate 68 69 67 Respiratory 15 17 17 Rate Blood Pressure 122/50 122/50 122/50 O2 Sat by Pulse 100 100 100 Oximetry 01/06/19 01/06/19 01/06/19 18:39 18:41 18:43 Pulse Rate 72 74 74 Respiratory 16 15 22 Rate Blood Pressure 122/50 122/87 122/87 O2 Sat by Pulse 100 100 100 Oximetry 01/06/19 01/06/19 01/06/19 18:45 18:47 18:49 Pulse Rate 76 74 72 Respiratory 20 18 15 Rate Blood Pressure 126/79 126/79 126/79 O2 Sat by Pulse 100 100 100 Oximetry 01/06/19 01/06/19 01/06/19 18:51 18:53 18:55 Pulse Rate 76 74 77 Respiratory 16 19 14 Rate Blood Pressure 126/79 126/79 126/79 O2 Sat by Pulse 100 100 100 Oximetry 01/06/19 01/06/19 01/06/19 18:57 18:59 19:00 Pulse Rate 73 73 70 Respiratory 22 22 12 Rate Blood Pressure 126/79 126/79 124/71 O2 Sat by Pulse 100 100 98 Oximetry 01/06/19 01/06/19 01/06/19 19:01 19:03 19:05 Pulse Rate 73 Respiratory 11 L 16 17 Rate Blood Pressure 124/71 124/71 124/71 O2 Sat by Pulse 100 99 100 Oximetry 01/06/19 01/06/19 01/06/19 19:07 19:09 19:11 Pulse Rate 74 72 Respiratory 18 20 19 Rate Blood Pressure 124/71 124/71 124/71 O2 Sat by Pulse 99 100 99 Oximetry 01/06/19 01/06/19 01/06/19 19:13 19:15 19:17 Pulse Rate 71 76 71 Respiratory 17 17 17 Rate Blood Pressure 124/71 117/76 117/76 O2 Sat by Pulse 99 99 99 Oximetry 01/06/19 01/06/19 01/06/19 19:19 19:21 19:23 Pulse Rate 72 70 71 Respiratory 21 19 21 Rate Blood Pressure 117/76 117/76 117/76 O2 Sat by Pulse 100 99 100 Oximetry 01/06/19 01/06/19 01/06/19 19:25 19:27 19:29 Pulse Rate 68 74 71 Respiratory 19 20 15 Rate Blood Pressure 117/76 117/76 117/76 O2 Sat by Pulse 100 100 99 Oximetry 01/06/19 01/06/19 01/06/19 19:30 19:31 19:33 Pulse Rate 71 70 70 Respiratory 15 18 19 Rate Blood Pressure 119/70 119/70 119/70 O2 Sat by Pulse 100 99 99 Oximetry 01/06/19 01/06/19 01/06/19 19:35 19:37 19:39 Pulse Rate 71 70 69 Respiratory 18 17 17 Rate Blood Pressure 119/70 119/70 119/70 O2 Sat by Pulse 99 98 100 Oximetry 01/06/19 01/06/19 01/06/19 19:41 19:43 19:45 Pulse Rate 71 71 71 Respiratory 14 16 17 Rate Blood Pressure 119/70 117/76 116/64 O2 Sat by Pulse 100 100 100 Oximetry 01/06/19 01/06/19 01/06/19 19:47 19:49 19:51 Pulse Rate 70 69 70 Respiratory 13 16 15 Rate Blood Pressure 116/64 116/64 116/64 O2 Sat by Pulse 100 100 100 Oximetry 01/06/19 01/06/19 01/06/19 19:53 19:55 19:57 Pulse Rate 71 71 71 Respiratory 13 16 16 Rate Blood Pressure 116/64 116/64 116/64 O2 Sat by Pulse 100 100 100 Oximetry 01/06/19 01/06/19 01/06/19 19:59 20:00 20:01 Pulse Rate 72 73 74 Respiratory 14 21 15 Rate Blood Pressure 116/64 121/65 121/65 O2 Sat by Pulse 100 100 99 Oximetry 01/06/19 01/06/19 01/06/19 20:03 20:05 20:07 Pulse Rate 71 70 72 Respiratory 16 15 16 Rate Blood Pressure 121/65 121/65 121/65 O2 Sat by Pulse 100 100 100 Oximetry 01/06/19 01/06/19 01/06/19 20:39 20:41 20:43 Pulse Rate 71 73 72 Respiratory 15 17 15 Rate Blood Pressure 122/70 122/70 122/70 O2 Sat by Pulse 100 100 100 Oximetry 01/06/19 01/06/19 01/06/19 20:45 20:47 20:49 Pulse Rate 79 76 78 Respiratory 21 14 18 Rate Blood Pressure 118/78 118/78 118/78 O2 Sat by Pulse 100 100 100 Oximetry 01/06/19 01/06/19 01/06/19 20:51 20:53 20:55 Pulse Rate 79 79 78 Respiratory 22 18 20 Rate Blood Pressure 118/78 118/78 118/78 O2 Sat by Pulse 100 100 100 Oximetry 01/06/19 01/06/19 01/06/19 20:57 20:59 21:01 Pulse Rate 92 H 91 H 86 Respiratory 28 H 17 16 Rate Blood Pressure 118/78 118/78 118/78 O2 Sat by Pulse 99 99 100 Oximetry 01/06/19 01/06/19 01/06/19 21:13 21:15 21:17 Pulse Rate 91 H 86 81 Respiratory 21 25 H 14 Rate Blood Pressure 122/71 120/65 120/65 O2 Sat by Pulse 97 97 97 Oximetry 01/06/19 01/06/19 01/06/19 21:19 21:21 21:23 Pulse Rate 77 78 78 Respiratory 12 22 20 Rate Blood Pressure 120/65 120/65 120/65 O2 Sat by Pulse 98 97 95 Oximetry 01/06/19 01/06/19 01/06/19 21:25 21:27 21:29 Pulse Rate 77 77 78 Respiratory 24 21 21 Rate Blood Pressure 120/65 120/65 120/65 O2 Sat by Pulse 93 95 90 Oximetry 01/06/19 01/06/19 01/06/19 21:30 21:31 21:33 Pulse Rate 74 77 76 Respiratory 19 21 17 Rate Blood Pressure 130/72 130/72 130/72 O2 Sat by Pulse 92 95 99 Oximetry 01/06/19 01/06/19 01/06/19 21:35 21:37 21:39 Pulse Rate 75 77 75 Respiratory 17 19 13 Rate Blood Pressure 130/72 130/72 130/72 O2 Sat by Pulse 97 97 97 Oximetry 01/06/19 01/06/19 01/06/19 21:41 21:43 21:45 Pulse Rate 76 78 75 Respiratory 17 17 17 Rate Blood Pressure 130/72 130/72 120/67 O2 Sat by Pulse 98 99 92 Oximetry 01/06/19 01/06/19 01/06/19 21:47 21:49 21:51 Pulse Rate 81 80 78 Respiratory 24 25 H 17 Rate Blood Pressure 130/72 130/72 130/72 O2 Sat by Pulse 95 95 100 Oximetry 01/06/19 01/06/19 01/06/19 21:53 21:55 21:57 Pulse Rate 81 82 79 Respiratory 21 20 22 Rate Blood Pressure 130/72 130/72 130/72 O2 Sat by Pulse 97 95 97 Oximetry 01/06/19 01/06/19 01/06/19 21:59 22:00 22:01 Pulse Rate 80 79 79 Respiratory 20 18 24 Rate Blood Pressure 130/72 121/74 121/74 O2 Sat by Pulse 99 95 98 Oximetry 01/06/19 01/06/19 01/06/19 22:03 22:05 22:07 Pulse Rate 79 78 79 Respiratory 22 20 21 Rate Blood Pressure 121/74 121/74 121/74 O2 Sat by Pulse 99 98 98 Oximetry 01/06/19 01/06/19 01/06/19 22:09 22:11 22:13 Pulse Rate 78 78 77 Respiratory 16 22 19 Rate Blood Pressure 121/74 121/74 121/74 O2 Sat by Pulse 97 96 96 Oximetry 01/06/19 01/06/19 01/06/19 22:15 22:17 22:19 Pulse Rate 76 78 78 Respiratory 17 18 18 Rate Blood Pressure 128/72 128/72 128/72 O2 Sat by Pulse 95 97 97 Oximetry 01/06/19 01/06/19 01/06/19 22:21 22:23 22:30 Pulse Rate 78 79 82 Respiratory 16 19 20 Rate Blood Pressure 128/72 128/72 125/84 O2 Sat by Pulse 97 97 Oximetry 01/06/19 22:40 Pulse Rate 81 Respiratory 20 Rate Blood Pressure 125/84 O2 Sat by Pulse 98 Oximetry - Reevaluation(s) Reevaluation #1: Initial evaluation done. Discussed case with and EMS. 01/06/19 16:17 Reevaluation #2: Patient resting in bed comfortably. Discussed all results with patient and family. Patient was admitted to the hospitalist service once an UA is obtained 01/06/19 18:12 Discussed all results with patient and family. Family and patient agree with plan of care and admission. 01/06/19 19:12 - Consultations Consultation #1: Hospitalist consultation for admission. Hospitalist to admit patient. 01/06/19 19:14 - Lab Data Result diagrams: 01/06/19 16:56 01/06/19 16:56 Lab Results 01/06/19 01/06/19 01/06/19 Range/Units 16:56 16:56 16:56 WBC 14.2 H (4.5-11.0) K/mm3 RBC 4.45 (3.65-5.03) M/mm3 Hgb 9.7 L (10.1-14.3) gm/dl Hct 30.1 L (30.3-42.9) % MCV 68 L (79-97) fl MCH 22 L (28-32) pg MCHC 32 (30-34) % RDW 19.7 H (13.2-15.2) % Plt Count 301 (140-440) K/mm3 Lymph % (Auto) 4.8 L (13.4-35.0) % [place] % (Auto) 3.9 (0.0-7.3) % Eos % (Auto) 0.7 (0.0-4.3) % Baso % (Auto) 0.8 (0.0-1.8) % Lymph # 0.7 L (1.2-5.4) K/mm3 [place] # 0.6 (0.0-0.8) K/mm3 Eos # 0.1 (0.0-0.4) K/mm3 Baso # 0.1 (0.0-0.1) K/mm3 Seg Neutrophils % 89.8 H (40.0-70.0) % Seg Neutrophils # 12.8 H (1.8-7.7) K/mm3 Sodium 142 (137-145) mmol/L Potassium 4.2 (3.6-5.0) mmol/L Chloride 105.3 (98-107) mmol/L Carbon Dioxide 23 (22-30) mmol/L Anion Gap 18 mmol/L BUN 20 H (7-17) mg/dL Creatinine 1.1 (0.7-1.2) mg/dL Estimated GFR 49 ml/min BUN/Creatinine Ratio 18 % Glucose 167 H (65-100) mg/dL Lactic Acid 3.40 H* (0.7-2.0) mmol/L Calcium 7.9 L (8.4-10.2) mg/dL Total Bilirubin 1.00 (0.1-1.2) mg/dL AST 29 (5-40) units/L ALT 10 (7-56) units/L Alkaline Phosphatase 29 L (35-129) units/L Total Creatine Kinase (30-135) units/L Troponin T (0.00-0.029) ng/mL Total Protein 5.0 L (6.3-8.2) g/dL Albumin 2.8 L (3.9-5) g/dL Albumin/Globulin Ratio 1.3 % Urine Color (Yellow) Urine Turbidity (Clear) Urine pH (5.0-7.0) Ur Specific [place] (1.003-1.030) Urine Protein (Negative) mg/dL Urine Glucose (UA) (Negative) mg/dL Urine Ketones (Negative) mg/dL Urine Blood (Negative) Urine Nitrite (Negative) Urine Bilirubin (Negative) Urine Urobilinogen (<2.0) mg/dL Ur Leukocyte Esterase (Negative) Urine WBC (Auto) (0.0-6.0) /HPF Urine RBC (Auto) (0.0-6.0) /HPF U Epithel Cells (Auto) (0-13.0) /HPF Urine Bacteria (Auto) (Negative) /HPF Hyaline Casts /LPF Urine Mucus /HPF Urine Yeast (Budding) /HPF Urine Opiates Screen Urine Methadone Screen Ur Barbiturates Screen Ur Phencyclidine Scrn Ur Amphetamines Screen U Benzodiazepines Scrn Urine Cocaine Screen U Marijuana (THC) Screen Drugs of Abuse Note 01/06/19 01/06/19 01/06/19 Range/Units 16:56 18:33 18:33 WBC (4.5-11.0) K/mm3 RBC (3.65-5.03) M/mm3 Hgb (10.1-14.3) gm/dl Hct (30.3-42.9) % MCV (79-97) fl MCH (28-32) pg MCHC (30-34) % RDW (13.2-15.2) % Plt Count (140-440) K/mm3 Lymph % (Auto) (13.4-35.0) % [place] % (Auto) (0.0-7.3) % Eos % (Auto) (0.0-4.3) % Baso % (Auto) (0.0-1.8) % Lymph # (1.2-5.4) K/mm3 [place] # (0.0-0.8) K/mm3 Eos # (0.0-0.4) K/mm3 Baso # (0.0-0.1) K/mm3 Seg Neutrophils % (40.0-70.0) % Seg Neutrophils # (1.8-7.7) K/mm3 Sodium (137-145) mmol/L Potassium (3.6-5.0) mmol/L Chloride (98-107) mmol/L Carbon Dioxide (22-30) mmol/L Anion Gap mmol/L BUN (7-17) mg/dL Creatinine (0.7-1.2) mg/dL Estimated GFR ml/min BUN/Creatinine Ratio % Glucose (65-100) mg/dL Lactic Acid (0.7-2.0) mmol/L Calcium (8.4-10.2) mg/dL Total Bilirubin (0.1-1.2) mg/dL AST (5-40) units/L ALT (7-56) units/L Alkaline Phosphatase (35-129) units/L Total Creatine Kinase 32 (30-135) units/L Troponin T < 0.010 (0.00-0.029) ng/mL Total Protein (6.3-8.2) g/dL Albumin (3.9-5) g/dL Albumin/Globulin Ratio % Urine Color [place] (Yellow) Urine Turbidity Slightly-cloudy (Clear) Urine pH 5.0 (5.0-7.0) Ur Specific [place] 1.027 (1.003-1.030) Urine Protein 100 mg/dl (Negative) mg/dL Urine Glucose (UA) Neg (Negative) mg/dL Urine Ketones Tr (Negative) mg/dL Urine Blood Sm (Negative) Urine Nitrite Neg (Negative) Urine Bilirubin Neg (Negative) Urine Urobilinogen < 2.0 (<2.0) mg/dL Ur Leukocyte Esterase Tr (Negative) Urine WBC (Auto) 18.0 H (0.0-6.0) /HPF Urine RBC (Auto) 10.0 (0.0-6.0) /HPF U Epithel Cells (Auto) < 1.0 (0-13.0) /HPF Urine Bacteria (Auto) 1+ (Negative) /HPF Hyaline Casts 4 /LPF Urine Mucus Few /HPF Urine Yeast (Budding) 2+ /HPF Urine Opiates Screen Presumptive negative Urine Methadone Screen Presumptive negative Ur Barbiturates Screen Presumptive negative Ur Phencyclidine Scrn Presumptive negative Ur Amphetamines Screen Presumptive negative U Benzodiazepines Scrn Presumptive negative Urine Cocaine Screen Presumptive negative U Marijuana (THC) Screen Presumptive negative Drugs of Abuse Note Disclamer 01/06/19 Range/Units 19:20 WBC (4.5-11.0) K/mm3 RBC (3.65-5.03) M/mm3 Hgb (10.1-14.3) gm/dl Hct (30.3-42.9) % MCV (79-97) fl MCH (28-32) pg MCHC (30-34) % RDW (13.2-15.2) % Plt Count (140-440) K/mm3 Lymph % (Auto) (13.4-35.0) % [place] % (Auto) (0.0-7.3) % Eos % (Auto) (0.0-4.3) % Baso % (Auto) (0.0-1.8) % Lymph # (1.2-5.4) K/mm3 [place] # (0.0-0.8) K/mm3 Eos # (0.0-0.4) K/mm3 Baso # (0.0-0.1) K/mm3 Seg Neutrophils % (40.0-70.0) % Seg Neutrophils # (1.8-7.7) K/mm3 Sodium (137-145) mmol/L Potassium (3.6-5.0) mmol/L Chloride (98-107) mmol/L Carbon Dioxide (22-30) mmol/L Anion Gap mmol/L BUN (7-17) mg/dL Creatinine (0.7-1.2) mg/dL Estimated GFR ml/min BUN/Creatinine Ratio % Glucose (65-100) mg/dL Lactic Acid 2.60 H* (0.7-2.0) mmol/L Calcium (8.4-10.2) mg/dL Total Bilirubin (0.1-1.2) mg/dL AST (5-40) units/L ALT (7-56) units/L Alkaline Phosphatase (35-129) units/L Total Creatine Kinase (30-135) units/L Troponin T (0.00-0.029) ng/mL Total Protein (6.3-8.2) g/dL Albumin (3.9-5) g/dL Albumin/Globulin Ratio % Urine Color (Yellow) Urine Turbidity (Clear) Urine pH (5.0-7.0) Ur Specific [place] (1.003-1.030) Urine Protein (Negative) mg/dL Urine Glucose (UA) (Negative) mg/dL Urine Ketones (Negative) mg/dL Urine Blood (Negative) Urine Nitrite (Negative) Urine Bilirubin (Negative) Urine Urobilinogen (<2.0) mg/dL Ur Leukocyte Esterase (Negative) Urine WBC (Auto) (0.0-6.0) /HPF Urine RBC (Auto) (0.0-6.0) /HPF U Epithel Cells (Auto) (0-13.0) /HPF Urine Bacteria (Auto) (Negative) /HPF Hyaline Casts /LPF Urine Mucus /HPF Urine Yeast (Budding) /HPF Urine Opiates Screen Urine Methadone Screen Ur Barbiturates Screen Ur Phencyclidine Scrn Ur Amphetamines Screen U Benzodiazepines Scrn Urine Cocaine Screen U Marijuana (THC) Screen Drugs of Abuse Note - EKG Data -: EKG Interpreted by Me EKG shows normal: sinus rhythm, axis, intervals, QRS complexes, ST-T waves Rate: normal - Radiology Data Radiology results: report reviewed, image reviewed PROCEDURE: XR CHEST 1V AP TECHNIQUE: Frontal chest x-ray HISTORY: Altered mental status COMPARISONS: 11/17/2018, 10/06/2018 FINDINGS: Enlarged cardiac silhouette. Fine bilateral reticular infiltrates. Both lung bases are clipped from the image and are not assessed. IMPRESSION: Cardiomegaly with bilateral fine reticular infiltrates. Compared with an older study from October 06, 2018, these findings appear to be May represent mild interstitial edema. Both lung bases are clipped from the current exam... - Medical Decision Making She is a 73-year-old female that presents emergent with altered mental status. Patient found to have a UTI and pneumonia. Patient was admitted to the hospitalist service for further evaluation and treatment. - Differential Diagnosis altered mental status. UTI.PNA. Dehydration Critical Care Time: Yes Critical care attestation.: If time is entered above; I have spent that time in minutes in the direct care of this critically ill patient, excluding procedure time. Critical Care Time: 45 minutes ED Disposition Clinical Impression: Lactic acid acidosis, Dehydration, Cough, Anticoagulant long-term use UTI (urinary tract infection) Qualifiers: Urinary tract infection type: acute cystitis Hematuria presence: with hematuria Qualified Code(s): N30.01 - Acute cystitis with hematuria Altered mental state Qualifiers: Altered mental status type: unspecified Qualified Code(s): R41.82 - Altered mental status, unspecified Anemia Qualifiers: Anemia type: unspecified type Qualified Code(s): D64.9 - Anemia, unspecified Pneumonia Qualifiers: Pneumonia type: due to unspecified organism Laterality: right Lung location: middle lobe of lung Qualified Code(s): J18.1 - Lobar pneumonia, unspecified organism Disposition: 09 OP ADMIT IP TO THIS HOSP Is pt being admited?: Yes Does the pt Need Aspirin: No Condition: Critical Time of Disposition: 19:12
[2019-01-06 17:22] LABS: Basophils # (Auto) 0.1 K/mm3 (0.0-0.1); Basophils % (Auto) 0.8 % (0.0-1.8); Eosinophils # (Auto) 0.1 K/mm3 (0.0-0.4); Eosinophils % (Auto) 0.7 % (0.0-4.3); Hematocrit 30.1 % (30.3-42.9); Hemoglobin 9.7 gm/dl (10.1-14.3); Lymphocytes # (Auto) 0.7 K/mm3 (1.2-5.4); Lymphocytes % (Auto) 4.8 % (13.4-35.0); Mean Corpuscular HGB Conc 32 % (30-34); Monocytes # (Auto) 0.6 K/mm3 (0.0-0.8); Monocytes % (Auto) 3.9 % (0.0-7.3); Platelet Count 301 K/mm3 (140-440); Red Blood Count 4.45 M/mm3 (3.65-5.03); Red Cell Distribution Width 19.7 % (13.2-15.2)
[2019-01-06 17:28] LABS: Mean Corpuscular Volume 68 fl (79-97)
[2019-01-06 17:42] LABS: Albumin 2.8 g/dL (3.9-5); Calcium 7.9 mg/dL (8.4-10.2)
[2019-01-06] MEDS ORDERED: NACL 0.9% 1000 ML 1,000 ML IV ONE (18:04)
[2019-01-06] MEDS ORDERED: MAXIPIME/NS 2 GM/100 ML 2 GM/100 ML BAG IV ONE (18:04)
--- NOTE | 2019-01-06 18:15 | XRay Report ---
PROCEDURE: XR CHEST 1V AP TECHNIQUE: Frontal chest x-ray HISTORY: Altered mental status COMPARISONS: 11/17/2018, 10/06/2018 FINDINGS: Enlarged cardiac silhouette. Fine bilateral reticular infiltrates. Both lung bases are clipped from the image and are not assessed . IMPRESSION: Cardiomegaly with bilateral fine reticular infiltrates. Compared with an older study from October 06, 2018, these findings appear to be May represent mild interstitial edema. Both lung bases are clipped from the current exam.. This document is electronically signed by Emmie Mckeon MD., January 06 2019 06:13:33 PM ET
[2019-01-06 18:57] LABS: Bacteria,Urine 1+ /HPF (Negative); Bilirubin,Urine NEG (Negative); Blood,Urine SM (Negative); Color,Urine Amber (Yellow); Hyaline Casts,Urine 4 /LPF; Mucus,Urine FEW /HPF; Urobilinogen,Urine < 2.0 mg/dL (<2.0)
[2019-01-06 19:06] LABS: Amphetamine Screen,Urine PRESUMPTIVE NEGATIVE; Benzodiazepines Screen,Urine PRESUMPTIVE NEGATIVE; Cannabinoid Screen,Urine PRESUMPTIVE NEGATIVE; Cocaine Screen,Urine PRESUMPTIVE NEGATIVE; Methadone Screen,Urine PRESUMPTIVE NEGATIVE; Opiate Screen,Urine PRESUMPTIVE NEGATIVE
--- NOTE | 2019-01-06 21:36 | History and Physical Report ---
History of Present Illness Date of examination: 01/06/19 History of present illness: 73-year-old woman with a history of CHF, pulmonary emboli on eliquis, dementia, arthritis was brought to the emergency room by because of generalized weakness, dry heaving, she's been intubated for 2 days, today she got slid on the floor, the was unable to get her off the floor, there was no loss of consciousness. She complained of cough productive of white phlegm, chills. She had diarrhea since last week, it is improving, she had 3 episodes today. The patient was just discharged from the hospital on December 31, treated for UTI Review of systems Constitutional: no weight loss, chills, fever Ears, eyes, nose, mouth and throat: no nasal congestion, no nasal discharge, no sinus pressure, no vision change, no red eye. Neck: No neck pain or rigidity. Cardiovascular: no palpitations, chest pain Respiratory: no shortness of breath Gastrointestinal: no hematochezia, abdominal pain Genitourinary : no frequency , no hematuria Musculoskeletal: no joint swelling or muscle ache Integumentary: no rash, no pruritis Neurological: no parathesias, no focal weakness Endocrine: no cold or heat intolerance, no polyuria or polydipsia Hematologic/Lymphatic: no easy bruising, no easy bleeding, no gland swelling Allergic/Immunologic: no urticaria, no angioedema. PAST MEDICAL HISTORY:CHF, dementia, pulmonary emboli, arthritis PAST SURGICAL HISTORY: Hysterectomy, cataract extraction, AICD SOCIAL HISTORY: Denies alcohol, drugs, tobacco FAMILY HISTORY: Hypertension Medications and Allergies Allergies Allergy/AdvReac Type Severity Reaction Status Date / Time shellfish derived AdvReac Rash Verified 06/14/18 14:19 Home Medications Medication Instructions Recorded Confirmed Last Taken Type Alendronate Sodium [Fosamax] 70 mg PO QWEEK 10/06/18 12/29/18 12/29/18 History Apixaban [Eliquis] 2.5 mg PO BID 10/06/18 12/29/18 12/29/18 History Ascorbic Acid [Vitamin C] 500 mg PO QDAY 10/06/18 12/29/18 12/29/18 History Carvedilol [Coreg] 6.25 mg PO BID 10/06/18 12/29/18 12/29/18 History Cyanocobalamin (Vitamin B-12) 1,000 mcg PO DAILY 10/06/18 12/29/18 12/29/18 History [Vitamin B-12] Donepezil [Aricept] 10 mg PO Q48H 10/06/18 12/29/18 10/06/18 History Fenofibrate 160 mg PO DAILY 10/06/18 12/29/18 12/29/18 History Ferrous Sulfate [Feosol 325 MG tab] 325 mg PO BID 10/06/18 12/29/18 12/29/18 History Folic Acid [Folvite] 1 mg PO QDAY 10/06/18 12/29/18 12/29/18 History Furosemide [Lasix TAB] 40 mg PO Q48H 10/06/18 12/29/18 Unknown History Memantine [Namenda] 5 mg PO BID 10/06/18 12/29/18 12/29/18 History QUEtiapine [SEROquel] 25 mg PO BID 10/06/18 12/29/18 12/29/18 History predniSONE [Prednisone] 5 mg PO BID 10/06/18 12/29/18 12/29/18 History Diphenoxylate/Atropine [Lomotil] 1 tab PO Q4H PRN 12/30/18 12/30/18 12/29/18 14:00 History Benzonatate [Tessalon Perle] 100 mg PO TID PRN #21 capsule 12/31/18 Unknown Rx cefUROXime [Ceftin] 250 mg PO Q12H #14 tablet 12/31/18 Unknown Rx Exam - Physical Exam Narrative exam: General Apperance: The patient lying in bed, breathing comfortable HEENT: Normocephalic, atraumatic. Pupils equally round and reactive to light, EOMI, no sclericterus or JVD or thyromegaly or nodule. , no carotid bruit, mucous membranes moist, no exudate or erythema Heart: S1-S2, regular is rhythm Lungs: Clear to auscultation bilaterally, breathing comfortable Abdomen: Positive bowel sounds, soft, nontender, nondistended, no organomegaly Extremities: No edema cyanosis clubbing Skin: no rash, nodule, warm and dry Neuro: cranial nerves 2-12 intact, speech is fluent, motor/sensory intact - Constitutional Vitals: Temp Pulse Resp BP Pulse Ox 72 16 121/65 100 04/04/19 20:07 01/06/19 20:07 01/06/19 20:07 01/06/19 20:07 Results - Labs CBC & Chem 7: 01/06/19 16:56 01/06/19 16:56 Labs: Abnormal lab results 01/06/19 01/06/19 01/06/19 Range/Units 16:56 16:56 16:56 WBC 14.2 H (4.5-11.0) K/mm3 Hgb 9.7 L (10.1-14.3) gm/dl Hct 30.1 L (30.3-42.9) % MCV 68 L (79-97) fl MCH 22 L (28-32) pg RDW 19.7 H (13.2-15.2) % Lymph % (Auto) 4.8 L (13.4-35.0) % Lymph # 0.7 L (1.2-5.4) K/mm3 Seg Neutrophils % 89.8 H (40.0-70.0) % Seg Neutrophils # 12.8 H (1.8-7.7) K/mm3 BUN 20 H (7-17) mg/dL Glucose 167 H (65-100) mg/dL Lactic Acid 3.40 H* (0.7-2.0) mmol/L Calcium 7.9 L (8.4-10.2) mg/dL Alkaline Phosphatase 29 L (35-129) units/L Total Protein 5.0 L (6.3-8.2) g/dL Albumin 2.8 L (3.9-5) g/dL Urine WBC (Auto) (0.0-6.0) /HPF 01/06/19 01/06/19 Range/Units 18:33 19:20 WBC (4.5-11.0) K/mm3 Hgb (10.1-14.3) gm/dl Hct (30.3-42.9) % MCV (79-97) fl MCH (28-32) pg RDW (13.2-15.2) % Lymph % (Auto) (13.4-35.0) % Lymph # (1.2-5.4) K/mm3 Seg Neutrophils % (40.0-70.0) % Seg Neutrophils # (1.8-7.7) K/mm3 BUN (7-17) mg/dL Glucose (65-100) mg/dL Lactic Acid 2.60 H* (0.7-2.0) mmol/L Calcium (8.4-10.2) mg/dL Alkaline Phosphatase (35-129) units/L Total Protein (6.3-8.2) g/dL Albumin (3.9-5) g/dL Urine WBC (Auto) 18.0 H (0.0-6.0) /HPF - Imaging and Cardiology Chest x-ray: report reviewed Assessment and Plan Assessment Nosocomial pneumonia UTI History of pulmonary emboli Debility CHF, stable dementia arthritis Plan Admit to medicine Start IV Zosyn, follow cultures, consult physical therapy Check stool studies Continue appropriate outpatient medications DVT prophylaxis stated that the patient missed 2 appointments with samantha Fowler equesting to see him
[2019-01-06] MEDS ORDERED: ZOFRAN IV PRN (22:04)
[2019-01-06] MEDS ORDERED: SODIUM CHLORIDE FLUSH SYRINGE 10 ML IV PRN (22:04)
[2019-01-07] MEDS: TESSALON PERLES PO PRN (00:04)
[2019-01-07] MEDS: LASIX PO SCH (00:04)
[2019-01-07 06:40] LABS: Basophils # (Auto) 0.1 K/mm3 (0.0-0.1); Basophils % (Auto) 0.6 % (0.0-1.8); Eosinophils # (Auto) 0.1 K/mm3 (0.0-0.4); Eosinophils % (Auto) 0.7 % (0.0-4.3); Hematocrit 32.6 % (30.3-42.9); Hemoglobin 10.5 gm/dl (10.1-14.3); Lymphocytes # (Auto) 1.6 K/mm3 (1.2-5.4); Lymphocytes % (Auto) 15.1 % (13.4-35.0); Mean Corpuscular HGB Conc 32 % (30-34); Monocytes # (Auto) 0.9 K/mm3 (0.0-0.8); Monocytes % (Auto) 8.3 % (0.0-7.3); Platelet Count 340 K/mm3 (140-440); Red Blood Count 4.78 M/mm3 (3.65-5.03)
[2019-01-07 06:41] LABS: Mean Corpuscular Volume 68 fl (79-97); Red Cell Distribution Width 20.2 % (13.2-15.2)
[2019-01-07 06:50] LABS: Calcium 8.7 mg/dL (8.4-10.2)
[2019-01-07] MEDS ORDERED: LOVENOX SUB-Q SCH (10:00)
--- NOTE | 2019-01-07 10:27 | Consultation ---
History of Present Illness Consult date: 01/07/19 Requesting physician: JONO SLAUGHTER Consult reason: other ("courtesy consult") History of present illness: The pt is a 73 YO female with a past medical history of NICMP (not a candidate for AICD due to mental status), LV thrombus (diagnosed 02/2018), anticoagulated with Eliquis, LBBB, dementia, rheumatoid arthritis, renal insufficiency. She is followed in our office by Dr. Mendez. She is a poor historian due to dementia and thus HPI is obtained per the chart. Pt was brought to the emergency room by because of generalized weakness, dry heaving and AMS. The patient was discharged from the hospital on December 31 following treatment for UTI and sepsis. Echo done 09/01/2018 showed EF 25-30%, LV mod dilated, no intracardiac mass or thrombus identified. PET Perfusion Study done 05/26/2017 - Impression: 1. Abnormal Lexiscan EKG. Patient went into LBBB during infusion that quickly resolved after 2 minutes.2. Normal rest and stress myocardial PET perfusion scan. No significant stress induced ischemia, no wall motion abnormality.3. Gated SPECT at rest 52%, stress 59%. 3. Coronary flow globally is diminished at 1.34. Past History Past Medical History: other (as per hpi) Medications and Allergies Allergies Allergy/AdvReac Type Severity Reaction Status Date / Time shellfish derived AdvReac Rash Verified 06/14/18 14:19 Home Medications Medication Instructions Recorded Confirmed Last Taken Type Alendronate Sodium [Fosamax] 70 mg PO QWEEK 10/06/18 12/29/18 12/29/18 History Apixaban [Eliquis] 2.5 mg PO BID 10/06/18 12/29/18 12/29/18 History Ascorbic Acid [Vitamin C] 500 mg PO QDAY 10/06/18 12/29/18 12/29/18 History Carvedilol [Coreg] 6.25 mg PO BID 10/06/18 12/29/18 12/29/18 History Cyanocobalamin (Vitamin B-12) 1,000 mcg PO DAILY 10/06/18 12/29/18 12/29/18 H istory [Vitamin B-12] Donepezil [Aricept] 10 mg PO Q48H 10/06/18 12/29/18 10/06/18 History Fenofibrate 160 mg PO DAILY 10/06/18 12/29/18 12/29/18 History Ferrous Sulfate [Feosol 325 MG tab] 325 mg PO BID 10/06/18 12/29/18 12/29/18 History Folic Acid [Folvite] 1 mg PO QDAY 10/06/18 12/29/18 12/29/18 History Furosemide [Lasix TAB] 40 mg PO Q48H 10/06/18 12/29/18 Unknown History Memantine [Namenda] 5 mg PO BID 10/06/18 12/29/18 12/29/18 History QUEtiapine [SEROquel] 25 mg PO BID 10/06/18 12/29/18 12/29/18 History predniSONE [Prednisone] 5 mg PO BID 10/06/18 12/29/18 12/29/18 History Diphenoxylate/Atropine [Lomotil] 1 tab PO Q4H PRN 12/30/18 12/30/18 12/29/18 14:00 History Benzonatate [Tessalon Perle] 100 mg PO TID PRN #21 capsule 12/31/18 Unknown Rx cefUROXime [Ceftin] 250 mg PO Q12H #14 tablet 12/31/18 Unknown Rx Active Meds: Active Medications Acetaminophen (Tylenol) 650 mg PO Q4H PRN PRN Reason: Pain MILD(1-3)/Fever >100.5/DINH Apixaban (Eliquis) 2.5 mg PO BID [facility]; Protocol Ascorbic Acid (Vitamin C) 500 mg PO QDAY [facility] Benzonatate (Tessalon Perles) 100 mg PO TID PRN PRN Reason: Cough Last Admin: 01/07/19 00:04 Dose: 100 mg Documented by: Carvedilol (Coreg) 6.25 mg PO BID [facility] Cyanocobalamin (Vitamin B-12) 1,000 mcg PO DAILY [facility] Donepezil HCl (Aricept) 10 mg PO Q48H [facility] Fenofibrate (Tricor) 145 mg PO DAILY [facility] Ferrous Sulfate (Feosol) 325 mg PO BID [facility] Folic Acid (Folvite) 1 mg PO QDAY [facility] Furosemide (Lasix) 40 mg PO Q48HR [facility] Last Admin: 01/07/19 00:04 Dose: 40 mg Documented by: Piperacillin Sod/Tazobactam Sod (Zosyn/Ns 4.5gm/100ml) 4.5 gm in 100 mls @ 200 mls/hr IV Q8HR [facility]; Protocol Memantine (Namenda) 5 mg PO BID [facility] Ondansetron HCl (Zofran) 4 mg IV Q4H PRN PRN Reason: Nausea And Vomiting Prednisone (Deltasone) 5 mg PO BID [facility] Quetiapine Fumarate (Seroquel) 25 mg PO BID [facility] Sodium Chloride (Sodium Chloride Flush Syringe 10 Ml) 10 ml IV BID [facility] Sodium Chloride (Sodium Chloride Flush Syringe 10 Ml) 10 ml IV PRN PRN PRN Reason: LINE FLUSH Review of Systems All systems: negative (no current complaints) Physical Examination Vital Signs Pulse Resp 69 19 01/06/19 17:17 01/06/19 17:17 General appearance: no acute distress HEENT: Positive: PERRL, Normocephaly, Mucus Membranes Moist Neck: Positive: neck supple, trachea midline Cardiac: Positive: Reg Rate and Rhythm, S1/S2 Lungs: Positive: Decreased Breath Sounds Neuro: Positive: Cranial Nerve 2-12 Intact Abdomen: Negative: Tender Skin: Negative: Rash Musculoskeletal: No Pain Extremities: Absent: edema Results 01/07/19 05:56 01/07/19 05:56 Cardiac Enzymes 01/06/19 Range/Units 16:56 AST 29 (5-40) units/L CBC 01/06/19 01/07/19 Range/Units 16:56 05:56 WBC 14.2 H 10.9 (4.5-11.0) K/mm3 RBC 4.45 4.78 (3.65-5.03) M/mm3 Hgb 9.7 L 10.5 (10.1-14.3) gm/dl Hct 30.1 L 32.6 (30.3-42.9) % Plt Count 301 340 (140-440) K/mm3 Lymph # 0.7 L 1.6 (1.2-5.4) K/mm3 Caroline # 0.6 0.9 H (0.0-0.8) K/mm3 Eos # 0.1 0.1 (0.0-0.4) K/mm3 Baso # 0.1 0.1 (0.0-0.1) K/mm3 Comprehensive Metabolic Panel 01/06/19 01/07/19 Range/Units 16:56 05:56 Sodium 142 143 (137-145) mmol/L Potassium 4.2 4.0 (3.6-5.0) mmol/L Chloride 105.3 110.2 H (98-107) mmol/L Carbon Dioxide 23 17 L (22-30) mmol/L BUN 20 H 19 H (7-17) mg/dL Creatinine 1.1 1.1 (0.7-1.2) mg/dL Glucose 167 H 104 H (65-100) mg/dL Calcium 7.9 L 8.7 (8.4-10.2) mg/dL AST 29 (5-40) units/L ALT 10 (7-56) units/L Alkaline Phosphatase 29 L (35-129) units/L Total Protein 5.0 L (6.3-8.2) g/dL Albumin 2.8 L (3.9-5) g/dL - Imaging and Cardiology Echo: report reviewed (09/01/2018 showed EF 25-30%, LV mod dilated, no intracardiac mass or thrombus identified. ) EKG: report reviewed, image reviewed EKG interpretations - Telemetry EKG Rhythm: Sinus Rhythm - EKG Sinus rhythms and dysrhythmias: sinus rhythm Assessment and Plan Currently stable cardiac status. No apparent acute cardiac issues. Cont home cardiac regimen. Will follow on as needed basis. Recommend pt follow up in our office with Dr. Mendez within 1-2 weeks of hospital discharge ([phone]). The patient has been seen in conjunction with Dr. Talisha Valles who agrees with the assessment and plan of care. - Patient Problems (1) Altered mental status Current Visit: Yes Status: Suspected (2) UTI (urinary tract infection) Current Visit: Yes Status: Acute (3) Pneumonia Current Visit: Yes Status: Suspected (4) Dehydration Current Visit: Yes Status: Acute (5) Anemia Current Visit: Yes Status: Chronic (6) Renal insufficiency Current Visit: Yes Status: Acute (7) NICM (nonischemic cardiomyopathy) Current Visit: Yes Status: Acute (8) LV (left ventricular) mural thrombus Current Visit: No Status: Resolved (9) Anticoagulant long-term use Current Visit: Yes Status: Chronic (10) LBBB (left bundle branch block) Current Visit: Yes Status: Chronic (11) Dementia Current Visit: Yes Status: Chronic
[2019-01-07] MEDS: FEOSOL PO SCH ×2 (11:11→21:40)
[2019-01-07] MEDS: TRICOR PO SCH (11:11)
[2019-01-07] MEDS: VITAMIN B-12 PO SCH (11:11)
[2019-01-07] MEDS: VITAMIN C PO SCH (11:12)
[2019-01-07] MEDS: COREG PO SCH ×2 (11:12→21:40)
[2019-01-07] MEDS: FOLVITE PO SCH (11:12)
[2019-01-07] MEDS: ELIQUIS PO SCH ×2 (11:12→21:41)
[2019-01-07] MEDS: SODIUM CHLORIDE FLUSH SYRINGE 10 ML IV SCH ×2 (11:13→21:42)
[2019-01-07] MEDS: DELTASONE PO SCH ×2 (11:13→21:41)
--- NOTE | 2019-01-07 12:03 | Progress Note ---
Assessment and Plan Assessment and plan: Presented to the ER with altered mental status. brought her in because she was not answering questions appropriately, per the she was recently discharged from hospital and she was treated for UTI and bronchitis, she was intubated for 2 days during that admission. She was on an antibiotic and Tessalon Perles. She was also having generalized weakness, productive cough. Per her she slid on the floor, her was unable to get her off the floor. Therefore he called EMS. She also had 3 episodes of diarrhea. Past medical history; history of DVT and pulmonary embolus on anticoagulation, hypertension, NICMP- congestive heart failure status post ICD, arthritis, dementia Chest x-ray; fine reticular infiltrates consistent with pulmonary venous edema Diagnoses/plan CHF exacerbation, EF 25%; IV lasix, cardiology input apprecited, optimize cardiac meds Highly doubt pneumonia, we'll follow up chest x-ray tomorrow to rule out pneumonia UA shows few WBC; U cx- no growth History of pulmonary embolism/dvt; Diarrhea; if she has anymore episodes of stent stool for C. difficile, given that she's been on antibiotics Hypercoaguable state; full anticoagulated NOK is , Robinson Ambrosio [phone] Debility; PT eval, patient may need subacute rehabilitation placement, as the could not get her off the floor, she has been in hospital multiple times recently, family is deciding if they want subacute rehabilitation versus ambulatory rehabilitation History Interval history: The patient has had poor again, she has chronic trouble getting around Review of systems Constitutional: No fevers, no malaise, no joint pains CVS: No chest pain, she is complaining of dyspnea on exertion, no pedal edema GI: No abdominal pain, no diarrhea, no vomiting, no constipation Respiratory: , no wheezing, no coughing Hospitalist Physical - Physical exam Narrative exam: General.: Appears well, no distress, nontoxic HEENT: Moist mucous membranes, extraocular muscles intact, no lymphadenopathy Neck: supple Cardiac: S1-S2 heard Lungs: clear to auscultation bilaterally Abdomen: soft , nontender, nondistended, bowel sounds positive Extremities: no edema clubbing or cyanosis Skin: no rash or lesions Neurologic: no gross focal deficits, generalized weakness Psych: calm, and cooperative - Constitutional Vitals: Temp Pulse Resp BP Pulse Ox 98.0 F 90 20 133/84 98 04/05/19 07:29 01/07/19 07:29 01/07/19 07:29 01/07/19 07:29 01/07/19 07:29 General appearance: Present: no acute distress Results - Labs CBC & Chem 7: 01/07/19 05:56 01/07/19 05:56 Labs: Laboratory Last Values WBC 10.9 K/mm3 (4.5-11.0) 01/07/19 05:56 RBC 4.78 M/mm3 (3.65-5.03) 01/07/19 05:56 Hgb 10.5 gm/dl (10.1-14.3) 01/07/19 05:56 Hct 32.6 % (30.3-42.9) 01/07/19 05:56 MCV 68 fl (79-97) L 01/07/19 05:56 MCH 22 pg (28-32) L 01/07/19 05:56 MCHC 32 % (30-34) 01/07/19 05:56 RDW 20.2 % (13.2-15.2) H 01/07/19 05:56 Plt Count 340 K/mm3 (140-440) 01/07/19 05:56 Lymph % (Auto) 15.1 % (13.4-35.0) 01/07/19 05:56 Scott % (Auto) 8.3 % (0.0-7.3) H 01/07/19 05:56 Eos % (Auto) 0.7 % (0.0-4.3) 01/07/19 05:56 Baso % (Auto) 0.6 % (0.0-1.8) 01/07/19 05:56 Lymph # 1.6 K/mm3 (1.2-5.4) 01/07/19 05:56 Scott # 0.9 K/mm3 (0.0-0.8) H 01/07/19 05:56 Eos # 0.1 K/mm3 (0.0-0.4) 01/07/19 05:56 Baso # 0.1 K/mm3 (0.0-0.1) 01/07/19 05:56 Seg Neutrophils % 75.3 % (40.0-70.0) H 01/07/19 05:56 Seg Neutrophils # 8.2 K/mm3 (1.8-7.7) H 01/07/19 05:56 Sodium 143 mmol/L (137-145) 01/07/19 05:56 Potassium 4.0 mmol/L (3.6-5.0) 01/07/19 05:56 Chloride 110.2 mmol/L (98-107) H 01/07/19 05:56 Carbon Dioxide 17 mmol/L (22-30) L 01/07/19 05:56 Anion Gap 20 mmol/L 01/07/19 05:56 BUN 19 mg/dL (7-17) H 01/07/19 05:56 Creatinine 1.1 mg/dL (0.7-1.2) 01/07/19 05:56 Estimated GFR 49 ml/min 01/07/19 05:56 BUN/Creatinine Ratio 17 % 01/07/19 05:56 Glucose 104 mg/dL (65-100) H 01/07/19 05:56 Lactic Acid 2.60 mmol/L (0.7-2.0) H* 01/06/19 19:20 Calcium 8.7 mg/dL (8.4-10.2) 01/07/19 05:56 Total Bilirubin 1.00 mg/dL (0.1-1.2) 01/06/19 16:56 AST 29 units/L (5-40) 01/06/19 16:56 ALT 10 units/L (7-56) 01/06/19 16:56 Alkaline Phosphatase 29 units/L (35-129) L 01/06/19 16:56 Total Creatine Kinase 32 units/L (30-135) 01/06/19 16:56 Troponin T < 0.010 ng/mL (0.00-0.029) 01/06/19 16:56 Total Protein 5.0 g/dL (6.3-8.2) L 01/06/19 16:56 Albumin 2.8 g/dL (3.9-5) L 01/06/19 16:56 Albumin/Globulin Ratio 1.3 % 01/06/19 16:56 Urine Color Samantha (Yellow) 01/06/19 18:33 Urine Turbidity Slightly-cloudy (Clear) 01/06/19 18:33 Urine pH 5.0 (5.0-7.0) 01/06/19 18:33 Ur Specific Skippers 1.027 (1.003-1.030) 01/06/19 18:33 Urine Protein 100 mg/dl mg/dL (Negative) 01/06/19 18:33 Urine Glucose (UA) Neg mg/dL (Negative) 01/06/19 18:33 Urine Ketones Tr mg/dL (Negative) 01/06/19 18:33 Urine Blood Sm (Negative) 01/06/19 18:33 Urine Nitrite Neg (Negative) 01/06/19 18:33 Urine Bilirubin Neg (Negative) 01/06/19 18:33 Urine Urobilinogen < 2.0 mg/dL (<2.0) 01/06/19 18:33 Ur Leukocyte Esterase Tr (Negative) 01/06/19 18:33 Urine WBC (Auto) 18.0 /HPF (0.0-6.0) H 01/06/19 18:33 Urine RBC (Auto) 10.0 /HPF (0.0-6.0) 01/06/19 18:33 U Epithel Cells (Auto) < 1.0 /HPF (0-13.0) 01/06/19 18:33 Urine Bacteria (Auto) 1+ /HPF (Negative) 01/06/19 18:33 Hyaline Casts 4 /LPF 01/06/19 18:33 Urine Mucus Few /HPF 01/06/19 18:33 Urine Yeast (Budding) 2+ /HPF 01/06/19 18:33 Urine Opiates Screen Presumptive negative 01/06/19 18:33 Urine Methadone Screen Presumptive negative 01/06/19 18:33 Ur Barbiturates Screen Presumptive negative 01/06/19 18:33 Ur Phencyclidine Scrn Presumptive negative 01/06/19 18:33 Ur Amphetamines Screen Presumptive negative 01/06/19 18:33 U Benzodiazepines Scrn Presumptive negative 01/06/19 18:33 Urine Cocaine Screen Presumptive negative 01/06/19 18:33 U Marijuana (THC) Screen Presumptive negative 01/06/19 18:33 Drugs of Abuse Note Disclamer 01/06/19 18:33 Active Medications - Current Medications Current Medications: Generic Name Dose Route Start Last Admin Trade Name Freq PRN Reason Stop Dose Admin Acetaminophen 650 mg 01/06/19 22:04 Tylenol PO Q4H PRN Pain MILD(1-3)/Fever >100.5/DINH Apixaban 2.5 mg 01/07/19 10:00 01/07/19 11:12 Eliquis PO 2.5 mg BID [facility] Administration Protocol Ascorbic Acid 500 mg 01/07/19 10:00 01/07/19 11:12 Vitamin C PO 500 mg QDAY [facility] Administration Benzonatate 100 mg 01/06/19 22:09 01/07/19 00:04 Tessalon Perles PO 100 mg TID PRN Administration Cough Carvedilol 6.25 mg 01/07/19 10:00 01/07/19 11:12 Coreg PO 6.25 mg BID [facility] Administration Cyanocobalamin 1,000 mcg 01/07/19 10:00 01/07/19 11:11 Vitamin B-12 PO 1,000 mcg DAILY [facility] Administration Donepezil HCl 10 mg 01/06/19 22:00 Aricept PO Q48H [facility] Fenofibrate 145 mg 01/07/19 10:00 01/07/19 11:11 Tricor PO 145 mg DAILY [facility] Administration Ferrous Sulfate 325 mg 01/07/19 10:00 01/07/19 11:11 Feosol PO 325 mg BID [facility] Administration Folic Acid 1 mg 01/07/19 10:00 01/07/19 11:12 Folvite PO 1 mg QDAY [facility] Administration Furosemide 40 mg 01/06/19 23:00 01/07/19 00:04 Lasix PO 40 mg Q48HR [facility] Administration Furosemide 40 mg 01/07/19 12:00 Lasix IV QDAY [facility] Piperacillin Sod/Tazobactam Sod 4.5 gm in 100 mls @ 200 mls/hr 01/07/19 06:00 Zosyn/Ns 4.5gm/100ml IV Q8HR [facility] Protocol Memantine 5 mg 01/07/19 10:00 Namenda PO BID [facility] Ondansetron HCl 4 mg 01/06/19 22:04 Zofran IV Q4H PRN Nausea And Vomiting Prednisone 5 mg 01/07/19 10:00 01/07/19 11:13 Deltasone PO 5 mg BID [facility] Administration Quetiapine Fumarate 25 mg 01/07/19 10:00 01/07/19 11:13 Seroquel PO 25 mg BID [facility] Administration Sodium Chloride 10 ml 01/07/19 10:00 01/07/19 11:13 Sodium Chloride Flush Syringe 10 Ml IV 10 ml BID [facility] Administration Sodium Chloride 10 ml 01/06/19 22:04 Sodium Chloride Flush Syringe 10 Ml IV PRN PRN LINE FLUSH
[2019-01-07] MEDS: LASIX IV SCH (12:57)
[2019-01-07] MEDS: TYLENOL PO PRN (14:57)
[2019-01-07] MEDS: ZOSYN/NS 4.5GM/100ML 4.5 GM/100 ML VIAL IV SCH ×2 (16:42→16:43)
[2019-01-07] MEDS: NAMENDA PO SCH ×2 (16:42→21:41)
[2019-01-08] MEDS: TESSALON PERLES PO PRN ×2 (00:54→09:57)
[2019-01-08] MEDS: ZOSYN/NS 4.5GM/100ML 4.5 GM/100 ML VIAL IV SCH (02:17)
--- NOTE | 2019-01-08 09:17 | Discharge Summary ---
Providers - Providers Date of Admission: 01/06/19 21:35 Attending physician: AFUA ANTONY MD 01/06/19 22:53 Physical Therapy Evaluation and Treat [CONS] Routine Comment: Reason For Exam: debility 01/06/19 22:54 Consult to Physician [CONS] Routine Comment: LOREN Consulting Provider: FABIAN SEALS Physician Instructions: CONSULT WAS CALLED TO CHRIS Reason For Exam: courtesy consult Primary care physician: [employer] Hospitalization Condition: Critical Hospital course: Presented to the ER with altered mental status. brought her in because she was not answering questions appropriately, per the she was recently discharged from hospital and she was treated for UTI and bronchitis, she was intubated for 2 days during that admission. She was on an antibiotic and Tessalon Perles. She was also having generalized weakness, productive cough. Per her she slid on the floor, her was unable to get her off the floor. Therefore he called EMS. She also had 3 episodes of diarrhea. Past medical history; history of DVT and pulmonary embolus on anticoagulation, hypertension, NICMP- congestive heart failure status post ICD, arthritis, dementia Chest x-ray; fine reticular infiltrates consistent with pulmonary venous edema Diagnoses/plan CHF exacerbation, EF 25%; IV lasix, cardiology input apprecited, optimize cardiac meds Highly doubt pneumonia, we'll follow up chest x-ray tomorrow to rule out pneumonia UA shows few WBC; U cx- no growth History of pulmonary embolism/dvt; Diarrhea; if she has anymore episodes of stent stool for C. difficile, given that she's been on antibiotics Hypercoaguable state; full anticoagulated NOK is , Robinson Ambrosio [phone] Debility; PT eval, patient may need subacute rehabilitation placement, as the could not get her off the floor, she has been in hospital multiple times recently, family is deciding if they want subacute rehabilitation versus ambulatory rehabilitation Disposition: DC-01 TO HOME OR SELFCARE Time spent for discharge: 33 mins Core Measure Documentation - Palliative Care Palliative Care/ Comfort Measures: Not Applicable - Core Measures Any of the following diagnoses?: heart failure - Heart Failure Discharge Requirements SHEA/ARB for LVSD if EF <40%: Yes Beta james at discharge: Yes Exam - Constitutional Vitals: Temp Pulse Resp BP Pulse Ox 98.1 F 71 18 119/79 100 01/08/19 07:00 01/08/19 08:20 01/08/19 07:00 01/08/19 07:00 01/08/19 08:20 General appearance: Present: no acute distress, well-nourished - EENT Eyes: Present: PERRL ENT: hearing intact, clear oral mucosa - Neck Neck: Present: supple, normal ROM - Respiratory Respiratory effort: normal Respiratory: bilateral: CTA - Cardiovascular Heart Sounds: Present: S1 & S2. Absent: rub, click - Extremities Extremities: pulses symmetrical, No edema Peripheral Pulses: within normal limits - Abdominal General gastrointestinal: Present: soft, non-tender, non-distended, normal bowel sounds Female genitourinary: Present: normal - Integumentary Integumentary: Present: clear, warm, dry - Musculoskeletal Musculoskeletal: gait normal, strength equal bilaterally - Psychiatric Psychiatric: appropriate mood/affect, intact judgment & insight - Neurologic Neurologic: CNII-XII intact, moves all extremities Plan Follow up with: PRIMARY CARE, [Primary Care Provider] - 3-5 Days
[2019-01-08] MEDS: VITAMIN C PO SCH (09:52)
[2019-01-08] MEDS: FOLVITE PO SCH (09:52)
[2019-01-08] MEDS: COREG PO SCH ×2 (09:52→21:17)
[2019-01-08] MEDS: NAMENDA PO SCH ×2 (09:52→21:17)
[2019-01-08] MEDS: FEOSOL PO SCH ×2 (09:52→21:14)
[2019-01-08] MEDS: ELIQUIS PO SCH ×2 (09:52→21:15)
[2019-01-08] MEDS: VITAMIN B-12 PO SCH (09:52)
[2019-01-08] MEDS: TRICOR PO SCH (09:52)
[2019-01-08] MEDS: DELTASONE PO SCH ×2 (09:52→12:45)
[2019-01-08] MEDS: LASIX PO SCH (09:53)
[2019-01-08] MEDS: TYLENOL PO PRN (09:58)
[2019-01-08] MEDS: SODIUM CHLORIDE FLUSH SYRINGE 10 ML IV SCH ×2 (10:00→23:02)
[2019-01-08] MEDS: LASIX IV SCH (10:05)
--- NOTE | 2019-01-08 11:52 | Progress Note ---
Assessment and Plan Assessment and plan: Presented to the ER with altered mental status. brought her in because she was not answering questions appropriately, per the she was recently discharged from hospital and she was treated for UTI and bronchitis, she was intubated for 2 days during that admission. She was on an antibiotic and Tessalon Perles. She was also having generalized weakness, productive cough. Per her she slid on the floor, her was unable to get her off the floor. Therefore he called EMS. She also had 3 episodes of diarrhea. Past medical history; history of DVT and pulmonary embolus on anticoagulation, hypertension, NICMP- congestive heart failure status post ICD, arthritis, dementia Chest x-ray; fine reticular infiltrates consistent with pulmonary venous edema Diagnoses/plan CHF exacerbation, EF 25%; IV lasix, cardiology input apprecited, optimize cardiac meds Highly doubt pneumonia, we'll follow up chest x-ray tomorrow to rule out pneumonia UA shows few WBC; U cx- no growth History of pulmonary embolism/dvt; Diarrhea; if she has anymore episodes of stent stool for C. difficile, given that she's been on antibiotics Hypercoaguable state; full anticoagulated NOK is , Robinson Ambrosio [phone] Debility; PT eval, patient may need subacute rehabilitation placement, as the could not get her off the floor, she has been in hospital multiple times recently, family is deciding if they want subacute rehabilitation versus ambulatory rehabilitation History Interval history: The patient has poor ET, she has chronic trouble getting around Review of systems Constitutional: No fevers, no malaise, no joint pains CVS: No chest pain, she is complaining of dyspnea on exertion, no pedal edema GI: No abdominal pain, no diarrhea, no vomiting, no constipation Respiratory: , no wheezing, no coughing Hospitalist Physical - Physical exam Narrative exam: General.: Appears well, no distress, nontoxic HEENT: Moist mucous membranes, extraocular muscles intact, no lymphadenopathy Neck: supple Cardiac: S1-S2 heard Lungs: clear to auscultation bilaterally Abdomen: soft , nontender, nondistended, bowel sounds positive Extremities: no edema clubbing or cyanosis Skin: no rash or lesions Neurologic: no gross focal deficits, generalized weakness Psych: calm, and cooperative - Constitutional Vitals: Temp Pulse Resp BP Pulse Ox 98.1 F 71 18 119/79 97 01/08/19 07:00 01/08/19 10:00 01/08/19 10:00 01/08/19 09:52 01/08/19 10:00 General appearance: Present: no acute distress, well-nourished Results - Labs CBC & Chem 7: 01/07/19 05:56 01/07/19 05:56 Labs: Laboratory Last Values WBC 10.9 K/mm3 (4.5-11.0) 01/07/19 05:56 RBC 4.78 M/mm3 (3.65-5.03) 01/07/19 05:56 Hgb 10.5 gm/dl (10.1-14.3) 01/07/19 05:56 Hct 32.6 % (30.3-42.9) 01/07/19 05:56 MCV 68 fl (79-97) L 01/07/19 05:56 MCH 22 pg (28-32) L 01/07/19 05:56 MCHC 32 % (30-34) 01/07/19 05:56 RDW 20.2 % (13.2-15.2) H 01/07/19 05:56 Plt Count 340 K/mm3 (140-440) 01/07/19 05:56 Lymph % (Auto) 15.1 % (13.4-35.0) 01/07/19 05:56 [place] % (Auto) 8.3 % (0.0-7.3) H 01/07/19 05:56 Eos % (Auto) 0.7 % (0.0-4.3) 01/07/19 05:56 Baso % (Auto) 0.6 % (0.0-1.8) 01/07/19 05:56 Lymph # 1.6 K/mm3 (1.2-5.4) 01/07/19 05:56 [place] # 0.9 K/mm3 (0.0-0.8) H 01/07/19 05:56 Eos # 0.1 K/mm3 (0.0-0.4) 01/07/19 05:56 Baso # 0.1 K/mm3 (0.0-0.1) 01/07/19 05:56 Seg Neutrophils % 75.3 % (40.0-70.0) H 01/07/19 05:56 Seg Neutrophils # 8.2 K/mm3 (1.8-7.7) H 01/07/19 05:56 Sodium 143 mmol/L (137-145) 01/07/19 05:56 Potassium 4.0 mmol/L (3.6-5.0) 01/07/19 05:56 Chloride 110.2 mmol/L (98-107) H 01/07/19 05:56 Carbon Dioxide 17 mmol/L (22-30) L 01/07/19 05:56 Anion Gap 20 mmol/L 01/07/19 05:56 BUN 19 mg/dL (7-17) H 01/07/19 05:56 Creatinine 1.1 mg/dL (0.7-1.2) 01/07/19 05:56 Estimated GFR 49 ml/min 01/07/19 05:56 BUN/Creatinine Ratio 17 % 01/07/19 05:56 Glucose 104 mg/dL (65-100) H 01/07/19 05:56 Lactic Acid 2.60 mmol/L (0.7-2.0) H* 01/06/19 19:20 Calcium 8.7 mg/dL (8.4-10.2) 01/07/19 05:56 Total Bilirubin 1.00 mg/dL (0.1-1.2) 01/06/19 16:56 AST 29 units/L (5-40) 01/06/19 16:56 ALT 10 units/L (7-56) 01/06/19 16:56 Alkaline Phosphatase 29 units/L (35-129) L 01/06/19 16:56 Total Creatine Kinase 32 units/L (30-135) 01/06/19 16:56 Troponin T < 0.010 ng/mL (0.00-0.029) 01/06/19 16:56 Total Protein 5.0 g/dL (6.3-8.2) L 01/06/19 16:56 Albumin 2.8 g/dL (3.9-5) L 01/06/19 16:56 Albumin/Globulin Ratio 1.3 % 01/06/19 16:56 Urine Color Samantha (Yellow) 01/06/19 18:33 Urine Turbidity Slightly-cloudy (Clear) 01/06/19 18:33 Urine pH 5.0 (5.0-7.0) 01/06/19 18:33 Ur Specific [place] 1.027 (1.003-1.030) 01/06/19 18:33 Urine Protein 100 mg/dl mg/dL (Negative) 01/06/19 18:33 Urine Glucose (UA) Neg mg/dL (Negative) 01/06/19 18:33 Urine Ketones Tr mg/dL (Negative) 01/06/19 18:33 Urine Blood Sm (Negative) 01/06/19 18:33 Urine Nitrite Neg (Negative) 01/06/19 18:33 Urine Bilirubin Neg (Negative) 01/06/19 18:33 Urine Urobilinogen < 2.0 mg/dL (<2.0) 01/06/19 18:33 Ur Leukocyte Esterase Tr (Negative) 01/06/19 18:33 Urine WBC (Auto) 18.0 /HPF (0.0-6.0) H 01/06/19 18:33 Urine RBC (Auto) 10.0 /HPF (0.0-6.0) 01/06/19 18:33 U Epithel Cells (Auto) < 1.0 /HPF (0-13.0) 01/06/19 18:33 Urine Bacteria (Auto) 1+ /HPF (Negative) 01/06/19 18:33 Hyaline Casts 4 /LPF 01/06/19 18:33 Urine Mucus Few /HPF 01/06/19 18:33 Urine Yeast (Budding) 2+ /HPF 01/06/19 18:33 Urine Opiates Screen Presumptive negative 01/06/19 18:33 Urine Methadone Screen Presumptive negative 01/06/19 18:33 Ur Barbiturates Screen Presumptive negative 01/06/19 18:33 Ur Phencyclidine Scrn Presumptive negative 01/06/19 18:33 Ur Amphetamines Screen Presumptive negative 01/06/19 18:33 U Benzodiazepines Scrn Presumptive negative 01/06/19 18:33 Urine Cocaine Screen Presumptive negative 01/06/19 18:33 U Marijuana (THC) Screen Presumptive negative 01/06/19 18:33 Drugs of Abuse Note Disclamer 01/06/19 18:33 Active Medications - Current Medications Current Medications: Generic Name Dose Route Start Last Admin Trade Name Freq PRN Reason Stop Dose Admin Acetaminophen 650 mg 01/06/19 22:04 01/08/19 09:58 Tylenol PO 650 mg Q4H PRN Administration Pain MILD(1-3)/Fever >100.5/DINH Albuterol/Ipratropium 1 ampul 01/08/19 14:00 Duoneb *Not For Prn Use* IH Q6HRT FABI Apixaban 2.5 mg 01/07/19 10:00 01/08/19 09:52 Eliquis PO 2.5 mg BID FABI Administration Protocol Ascorbic Acid 500 mg 01/07/19 10:00 01/08/19 09:52 Vitamin C PO 500 mg QDAY FABI Administration Benzonatate 100 mg 01/06/19 22:09 01/08/19 09:57 Tessalon Perles PO 100 mg TID PRN Administration Cough Carvedilol 6.25 mg 01/07/19 10:00 01/08/19 09:52 Coreg PO 6.25 mg BID FABI Administration Cyanocobalamin 1,000 mcg 01/07/19 10:00 01/08/19 09:52 Vitamin B-12 PO 1,000 mcg DAILY FABI Administration Donepezil HCl 10 mg 01/06/19 22:00 Aricept PO Q48H FABI Fenofibrate 145 mg 01/07/19 10:00 01/08/19 09:52 Tricor PO 145 mg DAILY FABI Administration Ferrous Sulfate 325 mg 01/07/19 10:00 01/08/19 09:52 Feosol PO 325 mg BID FABI Administration Folic Acid 1 mg 01/07/19 10:00 01/08/19 09:52 Folvite PO 1 mg QDAY FABI Administration Furosemide 40 mg 01/06/19 23:00 01/08/19 09:53 Lasix PO 40 mg Q48HR FABI Administration Memantine 5 mg 01/07/19 10:00 01/08/19 09:52 Namenda PO 5 mg BID FABI Administration Ondansetron HCl 4 mg 01/06/19 22:04 Zofran IV Q4H PRN Nausea And Vomiting Prednisone 40 mg 01/08/19 12:00 Deltasone PO QDAY FABI Pseudoephedrine/Acetam/Chlorphenir 10 ml 01/08/19 11:22 Robitussin Ac PO Q4H PRN Cough Quetiapine Fumarate 25 mg 01/07/19 10:00 01/08/19 09:52 Seroquel PO 25 mg BID FABI Administration Sodium Chloride 10 ml 01/07/19 10:00 01/08/19 10:00 Sodium Chloride Flush Syringe 10 Ml IV 10 ml BID FABI Administration Sodium Chloride 10 ml 01/06/19 22:04 Sodium Chloride Flush Syringe 10 Ml IV PRN PRN LINE FLUSH
[2019-01-08] MEDS ORDERED: ALUM-MAG HYDROX-SIMETH 200-200-20MG/5ML PO PRN (12:26)
[2019-01-08] MEDS: PROTONIX PO SCH (14:51)
[2019-01-08] MEDS: DUONEB *Not for PRN Use IH SCH ×2 (15:37→20:10)
[2019-01-08] MEDS: ARICEPT PO SCH (21:15)
[2019-01-08] MEDS ORDERED: LASIX IV ONE (21:16)
[2019-01-09] MEDS ORDERED: LASIX IV ONE (02:00)
[2019-01-09] MEDS: DUONEB *Not for PRN Use IH SCH ×4 (03:10→21:16)
[2019-01-09] MEDS ORDERED: DUONEB *Not for PRN Use IH ONE (07:31)
--- NOTE | 2019-01-09 08:50 | Progress Note ---
Assessment and Plan Assessment and plan: Presented to the ER with altered mental status. brought her in because she was not answering questions appropriately, per the she was recently discharged from hospital and she was treated for UTI and bronchitis, she was intubated for 2 days during that admission. She was on an antibiotic and Tessalon Perles. She was also having generalized weakness, productive cough. Per her she slid on the floor, her was unable to get her off the floor. Therefore he called EMS. She also had 3 episodes of diarrhea. Past medical history; history of DVT and pulmonary embolus on anticoagulation, hypertension, NICMP- congestive heart failure status post ICD, arthritis, dementia Chest x-ray; fine reticular infiltrates consistent with pulmonary venous edema repeat CXR; shows improvement of venous congestion Diagnoses/plan CHF exacerbation, EF 25%; IV lasix, cardiology input apprecited, optimize ca rdiac meds Highly doubt pneumonia, we'll follow up chest x-ray tomorrow to rule out pneumonia UA shows few WBC; U cx- no growth History of pulmonary embolism/dvt; Diarrhea; resolved without any specific intervention Hypercoaguable state; full anticoagulated NOK is , Robinson Ambrosio [phone] Debility; PT eval, patient may need subacute rehabilitation placement, as the could not get her off the floor, she has been in hospital multiple times recently,awaiting [facility] placement History Interval history: The patient has poor ET, she has chronic trouble getting around Review of systems Constitutional: No fevers, no malaise, no joint pains CVS: No chest pain, she is complaining of dyspnea on exertion, no pedal edema GI: No abdominal pain, no diarrhea, no vomiting, no constipation Respiratory: , no wheezing, no coughing Hospitalist Physical - Physical exam Narrative exam: General.: Appears well, no distress, nontoxic HEENT: Moist mucous membranes, extraocular muscles intact, no lymphadenopathy Neck: supple Cardiac: S1-S2 heard Lungs: clear to auscultation bilaterally Abdomen: soft , nontender, nondistended, bowel sounds positive Extremities: no edema clubbing or cyanosis Skin: no rash or lesions Neurologic: no gross focal deficits, generalized weakness Psych: calm, and cooperative - Constitutional Vitals: Temp Pulse Resp BP Pulse Ox 98.3 F 75 20 122/88 96 01/09/19 02:19 01/09/19 03:14 01/09/19 03:14 01/09/19 02:19 01/09/19 02:19 General appearance: Present: no acute distress, well-nourished Results - Labs CBC & Chem 7: 01/07/19 05:56 01/07/19 05:56 Labs: Laboratory Last Values WBC 10.9 K/mm3 (4.5-11.0) 01/07/19 05:56 RBC 4.78 M/mm3 (3.65-5.03) 01/07/19 05:56 Hgb 10.5 gm/dl (10.1-14.3) 01/07/19 05:56 Hct 32.6 % (30.3-42.9) 01/07/19 05:56 MCV 68 fl (79-97) L 01/07/19 05:56 MCH 22 pg (28-32) L 01/07/19 05:56 MCHC 32 % (30-34) 01/07/19 05:56 RDW 20.2 % (13.2-15.2) H 01/07/19 05:56 Plt Count 340 K/mm3 (140-440) 01/07/19 05:56 Lymph % (Auto) 15.1 % (13.4-35.0) 01/07/19 05:56 [place] % (Auto) 8.3 % (0.0-7.3) H 01/07/19 05:56 Eos % (Auto) 0.7 % (0.0-4.3) 01/07/19 05:56 Baso % (Auto) 0.6 % (0.0-1.8) 01/07/19 05:56 Lymph # 1.6 K/mm3 (1.2-5.4) 01/07/19 05:56 [place] # 0.9 K/mm3 (0.0-0.8) H 01/07/19 05:56 Eos # 0.1 K/mm3 (0.0-0.4) 01/07/19 05:56 Baso # 0.1 K/mm3 (0.0-0.1) 01/07/19 05:56 Seg Neutrophils % 75.3 % (40.0-70.0) H 01/07/19 05:56 Seg Neutrophils # 8.2 K/mm3 (1.8-7.7) H 01/07/19 05:56 Sodium 143 mmol/L (137-145) 01/07/19 05:56 Potassium 4.0 mmol/L (3.6-5.0) 01/07/19 05:56 Chloride 110.2 mmol/L (98-107) H 01/07/19 05:56 Carbon Dioxide 17 mmol/L (22-30) L 01/07/19 05:56 Anion Gap 20 mmol/L 01/07/19 05:56 BUN 19 mg/dL (7-17) H 01/07/19 05:56 Creatinine 1.1 mg/dL (0.7-1.2) 01/07/19 05:56 Estimated GFR 49 ml/min 01/07/19 05:56 BUN/Creatinine Ratio 17 % 01/07/19 05:56 Glucose 104 mg/dL (65-100) H 01/07/19 05:56 Lactic Acid 2.60 mmol/L (0.7-2.0) H* 01/06/19 19:20 Calcium 8.7 mg/dL (8.4-10.2) 01/07/19 05:56 Total Bilirubin 1.00 mg/dL (0.1-1.2) 01/06/19 16:56 AST 29 units/L (5-40) 01/06/19 16:56 ALT 10 units/L (7-56) 01/06/19 16:56 Alkaline Phosphatase 29 units/L (35-129) L 01/06/19 16:56 Total Creatine Kinase 32 units/L (30-135) 01/06/19 16:56 Troponin T < 0.010 ng/mL (0.00-0.029) 01/06/19 16:56 Total Protein 5.0 g/dL (6.3-8.2) L 01/06/19 16:56 Albumin 2.8 g/dL (3.9-5) L 01/06/19 16:56 Albumin/Globulin Ratio 1.3 % 01/06/19 16:56 Urine Color Samantha (Yellow) 01/06/19 18:33 Urine Turbidity Slightly-cloudy (Clear) 01/06/19 18:33 Urine pH 5.0 (5.0-7.0) 01/06/19 18:33 Ur Specific [place] 1.027 (1.003-1.030) 01/06/19 18:33 Urine Protein 100 mg/dl mg/dL (Negative) 01/06/19 18:33 Urine Glucose (UA) Neg mg/dL (Negative) 01/06/19 18:33 Urine Ketones Tr mg/dL (Negative) 01/06/19 18:33 Urine Blood Sm (Negative) 01/06/19 18:33 Urine Nitrite Neg (Negative) 01/06/19 18:33 Urine Bilirubin Neg (Negative) 01/06/19 18:33 Urine Urobilinogen < 2.0 mg/dL (<2.0) 01/06/19 18:33 Ur Leukocyte Esterase Tr (Negative) 01/06/19 18:33 Urine WBC (Auto) 18.0 /HPF (0.0-6.0) H 01/06/19 18:33 Urine RBC (Auto) 10.0 /HPF (0.0-6.0) 01/06/19 18:33 U Epithel Cells (Auto) < 1.0 /HPF (0-13.0) 01/06/19 18:33 Urine Bacteria (Auto) 1+ /HPF (Negative) 01/06/19 18:33 Hyaline Casts 4 /LPF 01/06/19 18:33 Urine Mucus Few /HPF 01/06/19 18:33 Urine Yeast (Budding) 2+ /HPF 01/06/19 18:33 Urine Opiates Screen Presumptive negative 01/06/19 18:33 Urine Methadone Screen Presumptive negative 01/06/19 18:33 Ur Barbiturates Screen Presumptive negative 01/06/19 18:33 Ur Phencyclidine Scrn Presumptive negative 01/06/19 18:33 Ur Amphetamines Screen Presumptive negative 01/06/19 18:33 U Benzodiazepines Scrn Presumptive negative 01/06/19 18:33 Urine Cocaine Screen Presumptive negative 01/06/19 18:33 U Marijuana (THC) Screen Presumptive negative 01/06/19 18:33 Drugs of Abuse Note Disclamer 01/06/19 18:33 Active Medications - Current Medications Current Medications: Generic Name Dose Route Start Last Admin Trade Name Freq PRN Reason Stop Dose Admin Acetaminophen 650 mg 01/06/19 22:04 01/08/19 09:58 Tylenol PO 650 mg Q4H PRN Administration Pain MILD(1-3)/Fever >100.5/DINH Al Hydrox/Mg Hydrox/Simethicone 30 ml 01/08/19 12:26 01/08/19 12:45 Alum-Mag Hydrox-Simeth 329-639-45ee/5ml PO 30 ml Q4H PRN Administration Indigestion Albuterol/Ipratropium 1 ampul 01/08/19 14:00 01/09/19 08:09 Duoneb *Not For Prn Use* IH Not Given Q6HRT FABI Apixaban 2.5 mg 01/07/19 10:00 01/08/19 21:15 Eliquis PO 2.5 mg BID FABI Administration Protocol Ascorbic Acid 500 mg 01/07/19 10:00 01/08/19 09:52 Vitamin C PO 500 mg QDAY FABI Administration Benzonatate 100 mg 01/06/19 22:09 01/08/19 09:57 Tessalon Perles PO 100 mg TID PRN Administration Cough Carvedilol 6.25 mg 01/07/19 10:00 01/08/19 21:17 Coreg PO 6.25 mg BID FABI Administration Cyanocobalamin 1,000 mcg 01/07/19 10:00 01/08/19 09:52 Vitamin B-12 PO 1,000 mcg DAILY FABI Administration Donepezil HCl 10 mg 01/06/19 22:00 01/08/19 21:15 Aricept PO 10 mg Q48H FABI Administration Fenofibrate 145 mg 01/07/19 10:00 01/08/19 09:52 Tricor PO 145 mg DAILY FABI Administration Ferrous Sulfate 325 mg 01/07/19 10:00 01/08/19 21:14 Feosol PO 325 mg BID FABI Administration Folic Acid 1 mg 01/07/19 10:00 01/08/19 09:52 Folvite PO 1 mg QDAY FABI Administration Furosemide 40 mg 01/09/19 10:00 Lasix PO QDAY FABI Memantine 5 mg 01/07/19 10:00 01/08/19 21:17 Namenda PO 5 mg BID FABI Administration Ondansetron HCl 4 mg 01/06/19 22:04 Zofran IV Q4H PRN Nausea And Vomiting Pantoprazole Sodium 40 mg 01/08/19 14:00 01/08/19 14:51 Protonix PO 40 mg QDAY FABI Administration Prednisone 40 mg 01/08/19 12:00 01/08/19 12:45 Deltasone PO 40 mg QDAY FABI Administration Pseudoephedrine/Acetam/Chlorphenir 10 ml 01/08/19 11:22 Robitussin Ac PO Q4H PRN Cough Quetiapine Fumarate 25 mg 01/07/19 10:00 01/08/19 21:15 Seroquel PO 25 mg BID FABI Administration Sodium Chloride 10 ml 01/07/19 10:00 01/08/19 23:02 Sodium Chloride Flush Syringe 10 Ml IV 10 ml BID FABI Administration Sodium Chloride 10 ml 01/06/19 22:04 Sodium Chloride Flush Syringe 10 Ml IV PRN PRN LINE FLUSH
--- NOTE | 2019-01-09 09:17 | XRay Report ---
PROCEDURE: XR CHEST ROUTINE 2V TECHNIQUE: AP and lateral chest radiographs HISTORY: sob COMPARISONS: 01/06/2019 FINDINGS: No mediastinal shift. Unchanged cardiomegaly. Basilar predominant interstitial prominence without def inite effusion or airspace disease. No pneumothorax or acute skeletal finding. IMPRESSION: Suggested mild pulmonary interstitial edema without definite effusion. This document is electronically signed by Jeffrey Cao MD., January 09 2019 09:15:08 AM ET
[2019-01-09] MEDS: TRICOR PO SCH (09:39)
[2019-01-09] MEDS: FEOSOL PO SCH ×2 (09:39→21:29)
[2019-01-09] MEDS: PROTONIX PO SCH (09:40)
[2019-01-09] MEDS: ELIQUIS PO SCH ×2 (09:40→21:28)
[2019-01-09] MEDS: VITAMIN B-12 PO SCH (09:40)
[2019-01-09] MEDS: VITAMIN C PO SCH (09:40)
[2019-01-09] MEDS: FOLVITE PO SCH (09:40)
[2019-01-09] MEDS: DELTASONE PO SCH (09:40)
[2019-01-09] MEDS: NAMENDA PO SCH ×2 (09:40→21:29)
[2019-01-09] MEDS: COREG PO SCH ×2 (09:41→21:28)
[2019-01-09] MEDS: SODIUM CHLORIDE FLUSH SYRINGE 10 ML IV SCH ×2 (09:42→21:30)
[2019-01-09] MEDS ORDERED: LASIX PO SCH (10:00)
[2019-01-09] MEDS: LASIX PO SCH (10:49)
--- NOTE | 2019-01-09 17:52 | Consultation ---
History of Present Illness Consult date: 01/09/19 History of present illness: PULMONARY AND CRITICAL CARE CONSULTATION. DR. GALLAGHER THANK YOU FOR ASKING US TO PARTICIPATE IN THE CARE OF THIS PATIENT Patient is a 60-year-old female recently diagnosed hypothyroidism, metastatic breast cancer status post left mastectomy metastasis to liver and lungs presents to the hospital this morning after she complained of shortness of breath and the daughter checked her pulse oximetry at home and was noted to be 80. The patient has been coughing but denies any hematemesis. The patient reports that she was recently for doctor's visits where she received 1 unit of blood transfusion and also iron infusion therapy. She also reports that she was told to have pneumon ia and started her on Levaquin 3 days ago. On presentation she denies any fever. She was on supplemental oxygen 3 L with improvement of her sinus to the low 90s. Bilateral lower extremity Doppler was done and was noted to have DVT in the right SFA to the popliteal. Past History Past Medical History: other (as per hpi) Medications and Allergies Allergies Allergy/AdvReac Type Severity Reaction Status Date / Time shellfish derived AdvReac Rash Verified 06/14/18 14:19 Home Medications Medication Instructions Recorded Confirmed Last Taken Type Alendronate Sodium [Fosamax] 70 mg PO QWEEK 10/06/18 12/29/18 12/29/18 History Apixaban [Eliquis] 2.5 mg PO BID 10/06/18 12/29/18 12/29/18 History Ascorbic Acid [Vitamin C] 500 mg PO QDAY 10/06/18 12/29/18 12/29/18 History Carvedilol [Coreg] 6.25 mg PO BID 10/06/18 12/29/18 12/29/18 History Cyanocobalamin (Vitamin B-12) 1,000 mcg PO DAILY 10/06/18 12/29/18 12/29/18 History [Vitamin B-12] Donepezil [Aricept] 10 mg PO Q48H 10/06/18 12/29/18 10/06/18 History Fenofibrate 160 mg PO DAILY 10/06/18 12/29/18 12/29/18 History Ferrous Sulfate [Feosol 325 MG tab] 325 mg PO BID 10/06/18 12/29/18 12/29/18 His tory Folic Acid [Folvite] 1 mg PO QDAY 10/06/18 12/29/18 12/29/18 History Furosemide [Lasix TAB] 40 mg PO Q48H 10/06/18 12/29/18 Unknown History Memantine [Namenda] 5 mg PO BID 10/06/18 12/29/18 12/29/18 History QUEtiapine [SEROquel] 25 mg PO BID 10/06/18 12/29/18 12/29/18 History predniSONE [Prednisone] 5 mg PO BID 10/06/18 12/29/18 12/29/18 History Diphenoxylate/Atropine [Lomotil] 1 tab PO Q4H PRN 12/30/18 12/30/18 12/29/18 14:00 History Benzonatate [Tessalon Perle] 100 mg PO TID PRN #21 capsule 12/31/18 Unknown Rx Active Meds: Active Medications Acetaminophen (Tylenol) 650 mg PO Q4H PRN PRN Reason: Pain MILD(1-3)/Fever >100.5/DINH Last Admin: 01/08/19 09:58 Dose: 650 mg Documented by: Al Hydrox/Mg Hydrox/Simethicone (Alum-Mag Hydrox-Simeth [id number]/5ml) 30 ml PO Q4H PRN PRN Reason: Indigestion Last Admin: 01/08/19 12:45 Dose: 30 ml Documented by: Albuterol/Ipratropium (Duoneb *Not For Prn Use*) 1 ampul IH TIDRT [facility] Last Admin: 01/09/19 14:36 Dose: 1 ampul Documented by: Apixaban (Eliquis) 2.5 mg PO BID [facility]; Protocol Last Admin: 01/09/19 09:40 Dose: 2.5 mg Documented by: Ascorbic Acid (Vitamin C) 500 mg PO QDAY [facility] Last Admin: 01/09/19 09:40 Dose: 500 mg Documented by: Benzonatate (Tessalon Perles) 100 mg PO TID PRN PRN Reason: Cough Last Admin: 01/08/19 09:57 Dose: 100 mg Documented by: Carvedilol (Coreg) 6.25 mg PO BID [facility] Last Admin: 01/09/19 09:41 Dose: 6.25 mg Documented by: Cyanocobalamin (Vitamin B-12) 1,000 mcg PO DAILY [facility] Last Admin: 01/09/19 09:40 Dose: 1,000 mcg Documented by: Donepezil HCl (Aricept) 10 mg PO Q48H [facility] Last Admin: 01/08/19 21:15 Dose: 10 mg Documented by: Fenofibrate (Tricor) 145 mg PO DAILY [facility] Last Admin: 01/09/19 09:39 Dose: 145 mg Documented by: Ferrous Sulfate (Feosol) 325 mg PO BID [facility] Last Admin: 01/09/19 09:39 Dose: 325 mg Documented by: Folic Acid (Folvite) 1 mg PO QDAY [facility] Last Admin: 01/09/19 09:40 Dose: 1 mg Documented by: Furosemide (Lasix) 40 mg PO QDAY [facility] Last Admin: 01/09/19 10:49 Dose: 40 mg Documented by: Memantine (Namenda) 5 mg PO BID [facility] Last Admin: 01/09/19 09:40 Dose: 5 mg Documented by: Ondansetron HCl (Zofran) 4 mg IV Q4H PRN PRN Reason: Nausea And Vomiting Pantoprazole Sodium (Protonix) 40 mg PO QDAY [facility] Last Admin: 01/09/19 09:40 Dose: 40 mg Documented by: Prednisone (Deltasone) 40 mg PO QDAY [facility] Last Admin: 01/09/19 09:40 Dose: 40 mg Documented by: Pseudoephedrine/Acetam/Chlorphenir (Robitussin Ac) 10 ml PO Q4H PRN PRN Reason: Cough Quetiapine Fumarate (Seroquel) 25 mg PO BID [facility] Last Admin: 01/09/19 09:39 Dose: 25 mg Documented by: Sodium Chloride (Sodium Chloride Flush Syringe 10 Ml) 10 ml IV BID [facility] Last Admin: 01/09/19 09:42 Dose: 10 ml Documented by: Sodium Chloride (Sodium Chloride Flush Syringe 10 Ml) 10 ml IV PRN PRN PRN Reason: LINE FLUSH Review of Systems All systems: negative Physical Examination Vital signs: Vital Signs Pulse Resp 69 19 01/06/19 17:17 01/06/19 17:17 Results - Laboratory Findings CBC and BMP: 01/07/19 05:56 01/07/19 05:56 Abnormal lab findings: Abnormal Labs 01/06/19 01/06/19 01/06/19 16:56 16:56 16:56 WBC 14.2 H Hgb 9.7 L Hct 30.1 L MCV 68 L MCH 22 L RDW 19.7 H Lymph % (Auto) 4.8 L [place] % (Auto) Lymph # 0.7 L [place] # Seg Neutrophils % 89.8 H Seg Neutrophils # 12.8 H Chloride Carbon Dioxide BUN 20 H Glucose 167 H Lactic Acid 3.40 H* Calcium 7.9 L Alkaline Phosphatase 29 L Total Protein 5.0 L Albumin 2.8 L Urine WBC (Auto) 01/06/19 01/06/19 01/07/19 18:33 19:20 05:56 WBC Hgb Hct MCV 68 L MCH 22 L RDW 20.2 H Lymph % (Auto) [place] % (Auto) 8.3 H Lymph # [place] # 0.9 H Seg Neutrophils % 75.3 H Seg Neutrophils # 8.2 H Chloride Carbon Dioxide BUN Glucose Lactic Acid 2.60 H* Calcium Alkaline Phosphatase Total Protein Albumin Urine WBC (Auto) 18.0 H 01/07/19 05:56 WBC Hgb Hct MCV MCH RDW Lymph % (Auto) [place] % (Auto) Lymph # [place] # Seg Neutrophils % Seg Neutrophils # Chloride 110.2 H Carbon Dioxide 17 L BUN 19 H Glucose 104 H Lactic Acid Calcium Alkaline Phosphatase Total Protein Albumin Urine WBC (Auto) Assessment and Plan - Patient Problems (1) Pneumonia Current Visit: Yes Status: Acute Qualifiers: Pneumonia type: due to unspecified organism Laterality: right Lung location: middle lobe of lung Qualified Code(s): J18.1 - Lobar pneumonia, unspecified organism (2) Lactic acid acidosis Current Visit: Yes Status: Acute
[2019-01-09] MEDS: ROBITUSSIN AC PO PRN (18:36)
[2019-01-10] MEDS: ROBITUSSIN AC PO PRN ×2 (04:35→11:27)
[2019-01-10 08:01] VITALS: BP 125/90
[2019-01-10] MEDS: DUONEB *Not for PRN Use IH SCH ×2 (08:37→14:06)
[2019-01-10] MEDS: FOLVITE PO SCH (09:34)
[2019-01-10] MEDS: VITAMIN C PO SCH (09:34)
[2019-01-10] MEDS: VITAMIN B-12 PO SCH (09:34)
[2019-01-10] MEDS: FEOSOL PO SCH (09:34)
[2019-01-10] MEDS: PROTONIX PO SCH (09:34)
[2019-01-10] MEDS: DELTASONE PO SCH (09:34)
[2019-01-10] MEDS: ELIQUIS PO SCH (09:34)
[2019-01-10] MEDS: LASIX PO SCH (09:34)
[2019-01-10] MEDS: COREG PO SCH (09:35)
[2019-01-10] MEDS: SODIUM CHLORIDE FLUSH SYRINGE 10 ML IV SCH (09:35)
[2019-01-10] MEDS: NAMENDA PO SCH (09:35)
[2019-01-10] MEDS: TRICOR PO SCH (09:35)
[2019-01-10] MEDS: TYLENOL PO PRN (11:25)
--- NOTE | 2019-01-10 12:17 | Discharge Summary ---
Providers - Providers Date of Admission: 01/06/19 21:35 Attending physician: AFUA ANTONY MD 01/06/19 22:53 Physical Therapy Evaluation and Treat [CONS] Routine Comment: Reason For Exam: debility 01/06/19 22:54 Consult to Physician [CONS] Routine Comment: LOREN Consulting Provider: FABIAN SEALS Physician Instructions: CONSULT WAS CALLED TO CHRIS Reason For Exam: courtesy consult 01/09/19 09:45 Consult to Physician [CONS] Routine Comment: Consulting Provider: SOL TODD Physician Instructions: Reason For Exam: sob Primary care physician: [employer] Hospitalization Condition: Critical Hospital course: Presented to the ER with altered mental status. brought her in because she was not answering questions appropriately, per the she was recently discharged from hospital and she was treated for UTI and bronchitis, she was intubated for 2 days during that admission. She was on an antibiotic and Savanna annie Perles. She was also having generalized weakness, productive cough. Per her she slid on the floor, her was unable to get her off the floor. Therefore he called EMS. She also had 3 episodes of diarrhea. Past medical history; history of DVT and pulmonary embolus on anticoagulation, hypertension, NICMP- congestive heart failure status post ICD, arthritis, dementia Chest x-ray; fine reticular infiltrates consistent with pulmonary venous edema repeat CXR; shows improvement of venous congestion Diagnoses/plan CHF, patient received diuresis, cardiology consult, cardiac meds optimized. There was concern for pneumonia, chest x-ray was repeated which ruled out pneumonia. She had pulmonary venous congestion consistent with CHF and not pneumonia She had had recent UTI, therefore urine cultures repeated and was negative She had severe weakness and debility given chronic medical illnesses and multiple. The patient was offered subacute rehabilitation placement, but she declined. Disposition: - TO HOME OR SELFCARE Time spent for discharge: 33 mins Core Measure Documentation - Palliative Care Palliative Care/ Comfort Measures: Not Applicable - Core Measures Any of the following diagnoses?: none Exam - Constitutional Vitals: Temp Pulse Resp BP Pulse Ox 98.9 F 81 18 125/90 96 01/10/19 07:15 01/10/19 10:00 01/10/19 11:25 01/10/19 09:35 01/10/19 10:00 General appearance: Present: no acute distress, well-nourished - EENT Eyes: Present: PERRL ENT: hearing intact, clear oral mucosa - Neck Neck: Present: supple, normal ROM - Respiratory Respiratory effort: normal Respiratory: bilateral: CTA - Cardiovascular Heart Sounds: Present: S1 & S2. Absent: rub, click - Extremities Extremities: pulses symmetrical, No edema Peripheral Pulses: within normal limits - Abdominal General gastrointestinal: Present: soft, non-tender, non-distended, normal bowel sounds Female genitourinary: Present: normal - Integumentary Integumentary: Present: clear, warm, dry - Musculoskeletal Musculoskeletal: gait normal, strength equal bilaterally - Psychiatric Psychiatric: appropriate mood/affect, intact judgment & insight - Neurologic Neurologic: CNII-XII intact, moves all extremities Plan Follow up with: PRIMARY CARE,MD [Primary Care Provider] - 3-5 Days Prescriptions: Furosemide [Lasix TAB] 40 mg PO QDAY #30 tablet Other Discharge Orders: Physicial Therapy (Amb) Location: None Selected
== END 2019-01-10 14:20 | disposition home health service (06) | DRG 292 ==
LOC: ED 16:17 → 2B-ACE 21:35
PROVIDERS: ADMIT Internal Medicine; ATTEND Internal Medicine
DX: I11.0 Hypertensive heart disease with heart failure (principal); C78.00 Secondary malignant neoplasm of unspecified lung; C78.7 Secondary malignant neoplasm of liver and intrahepatic bile duct; N30.01 Acute cystitis with hematuria; D68.59 Other primary thrombophilia; D64.9 Anemia, unspecified; F03.90 Unspecified dementia, unspecified severity, without behavioral disturbance, psychotic disturbance, mood disturbance, and anxiety; R19.7 Diarrhea, unspecified; E86.0 Dehydration; I44.7 Left bundle-branch block, unspecified; I50.9 Heart failure, unspecified; Z86.711 Personal history of pulmonary embolism; Z79.01 Long term (current) use of anticoagulants; Z82.49 Family history of ischemic heart disease and other diseases of the circulatory system; Z90.710 Acquired absence of both cervix and uterus; Z95.810 Presence of automatic (implantable) cardiac defibrillator; Z98.49 Cataract extraction status, unspecified eye; Z91.013 Allergy to seafood; Z90.12 Acquired absence of left breast and nipple; Z85.3 Personal history of malignant neoplasm of breast
CPT/HCPCS: 36415; 71045; 71046; 80048; 80053; 80307; 81001; 82140; 82550; 84484; 85025; 87086; 93005; 93010; 94640; 96365; 96366; G0378; J0692; J1940; J2543; J7030; J7512

== ENCOUNTER 2019-01-17 14:08 | Emergency (ER) | payer MEDICARE, OTHER ==
--- NOTE | 2019-01-17 14:37 | Emergency Department Report ---
Chief Complaint: Weakness Stated Complaint: LAB WORK/REFERRAL Time Seen by Provider: 01/17/19 14:34 - HPI History of Present Illness: Pt went to her PCP Dr. Maddox office states hgb check today 4.4 hx of anemia, takes ferrous sulfate, folic acid never had a blood transfusion pt having fatigue, generalized weakness no unilateral weakness PMHx of arthritis, CHF recently dx with UTI MSE screening note: Focused history and physical exam performed. Due to findings the following was ordered: labs, UA ED Disposition for MSE Condition: Stable
[2019-01-17 14:56] LABS: Hematocrit 34.8 % (30.3-42.9); Hemoglobin 11.1 gm/dl (10.1-14.3); Mean Corpuscular HGB Conc 32 % (30-34); Platelet Count 315 K/mm3 (140-440); Red Cell Distribution Width 19.2 % (13.2-15.2)
[2019-01-17 14:57] LABS: Mean Corpuscular Volume 67 fl (79-97)
[2019-01-17 15:15] LABS: Alanine Aminotransferase 13 units/L (7-56); Albumin 3.4 g/dL (3.9-5); BUN/Creatinine Ratio 17; Blood Urea Nitrogen 19 mg/dL (7-17); Hemolysis Index 1
[2019-01-17 15:47] LABS: Basophils % (Manual) 0 % (0.0-1.8); Eosinophils % (Manual) 0 % (0.0-4.3); Total Cells Counted 100
[2019-01-17 15:48] LABS: Anisocytosis 2+; Poikilocytosis 2+; Target Cells 1+
[2019-01-17 15:49] LABS: Ovalocytes 1+
--- NOTE | 2019-01-17 16:16 | Emergency Department Report ---
ED General Adult HPI - General Chief complaint: Weakness Stated complaint: LAB WORK/REFERRAL Time Seen by Provider: 01/17/19 14:34 Source: patient Mode of arrival: Ambulatory Limitations: No Limitations - History of Present Illness Initial comments: Patient is 73 years old female with history of congestive heart failure, hypertension, arthritis and dementia. Patient was sent from our primary care office after she was seen today by the nurse practitioner for follow-up after she was discharged from the hospital.Practitioner send the patient to the ER for blood transfusion because she had an office H&H that showed a hemoglobin of 4.4. Patient's and family said there is no change in his status except for shortness of breath and generalized weakness. Patient denied any chest pain, nausea or vomiting. Patient had history of chronic anemia and she is on ferrous sulfate for that. Patient denied any hemoptysis, hematemesis, hematochezia, melena or hematochezia or hematuria. Severity scale (0 -10): 0 - Related Data Home Medications Medication Instructions Recorded Confirmed Last Taken Alendronate Sodium [Fosamax] 70 mg PO QWEEK 10/06/18 01/10/19 12/29/18 Apixaban [Eliquis] 2.5 mg PO BID 10/06/18 01/10/19 12/29/18 Ascorbic Acid [Vitamin C] 500 mg PO QDAY 10/06/18 01/10/19 12/29/18 Carvedilol [Coreg] 6.25 mg PO BID 10/06/18 01/10/19 12/29/18 Cyanocobalamin (Vitamin B-12) 1,000 mcg PO DAILY 10/06/18 01/10/19 12/29/18 [Vitamin B-12] Donepezil [Aricept] 10 mg PO Q48H 10/06/18 01/10/19 10/06/18 Fenofibrate 160 mg PO DAILY 10/06/18 01/10/19 12/29/18 Ferrous Sulfate [Feosol 325 MG tab] 325 mg PO BID 10/06/18 01/10/19 12/29/18 Folic Acid [Folvite] 1 mg PO QDAY 10/06/18 01/10/19 12/29/18 Furosemide [Lasix TAB] 40 mg PO Q48H 10/06/18 01/10/19 Unknown Memantine [Namenda] 5 mg PO BID 10/06/18 01/10/19 12/29/18 QUEtiapine [SEROquel] 25 mg PO BID 10/06/18 01/10/19 12/29/18 predniSONE [Prednisone] 5 mg PO BID 10/06/18 01/10/19 12/29/18 Diphenoxylate/Atropine [Lomotil] 1 tab PO Q4H PRN 12/30/18 01/10/19 12/29/18 14:00 Previous Rx's Medication Instructions Recorded Last Taken Type Benzonatate [Tessalon Perle] 100 mg PO TID PRN #21 capsule 12/31/18 Unknown Rx Furosemide [Lasix TAB] 40 mg PO QDAY #30 tablet 01/10/19 Unknown Rx Allergies Allergy/AdvReac Type Severity Reaction Status Date / Time shellfish derived AdvReac Rash Verified 06/14/18 14:19 ED Review of Systems ROS: Stated complaint: LAB WORK/REFERRAL Other details as noted in HPI Comment: All other systems reviewed and negative Constitutional: denies: chills, fever Respiratory: shortness of breath. denies: cough Cardiovascular: denies: chest pain, palpitations, dyspnea on exertion Gastrointestinal: denies: abdominal pain, nausea, vomiting, diarrhea, constipation, hematemesis, melena, hematochezia Musculoskeletal: denies: back pain Neurological: weakness (generalized). denies: headache, numbness, paresthesias, confusion, abnormal gait ED Past Medical Hx - Past Medical History Hx Hypertension: Yes Hx Congestive Heart Failure: Yes Hx Arthritis: Yes Hx Dementia: Yes Additional medical history: dementia - Surgical History Additional Surgical History: HYSTERECTOMY - Social History Smoking Status: Never Smoker Substance Use Type: None - Medications Home Medications: Home Medications Medication Instructions Recorded Confirmed Last Taken Type Alendronate Sodium [Fosamax] 70 mg PO QWEEK 10/06/18 01/10/19 12/29/18 History Apixaban [Eliquis] 2.5 mg PO BID 10/06/18 01/10/19 12/29/18 History Ascorbic Acid [Vitamin C] 500 mg PO QDAY 10/06/18 01/10/19 12/29/18 History Carvedilol [Coreg] 6.25 mg PO BID 10/06/18 01/10/19 12/29/18 History Cyanocobalamin (Vitamin B-12) 1,000 mcg PO DAILY 10/06/18 01/10/19 12/29/18 History [Vitamin B-12] Donepezil [Aricept] 10 mg PO Q48H 10/06/18 01/10/19 10/06/18 History Fenofibrate 160 mg PO DAILY 10/06/18 01/10/19 12/29/18 History Ferrous Sulfate [Feosol 325 MG tab] 325 mg PO BID 10/06/18 01/10/19 12/29/18 History Folic Acid [Folvite] 1 mg PO QDAY 10/06/18 01/10/19 12/29/18 History Furosemide [Lasix TAB] 40 mg PO Q48H 10/06/18 01/10/19 Unknown History Memantine [Namenda] 5 mg PO BID 10/06/18 01/10/19 12/29/18 History QUEtiapine [SEROquel] 25 mg PO BID 10/06/18 01/10/19 12/29/18 History predniSONE [Prednisone] 5 mg PO BID 10/06/18 01/10/19 12/29/18 History Diphenoxylate/Atropine [Lomotil] 1 tab PO Q4H PRN 12/30/18 01/10/19 12/29/18 14:00 History Benzonatate [Tessalon Perle] 100 mg PO TID PRN #21 capsule 12/31/18 01/10/19 Unknown Rx Furosemide [Lasix TAB] 40 mg PO QDAY #30 tablet 01/10/19 Unknown Rx ED Physical Exam - General Limitations: No Limitations General appearance: alert, in no apparent distress - Head Head exam: Present: atraumatic, normocephalic, normal inspection - Eye Eye exam: Present: normal appearance, PERRL - ENT ENT exam: Present: normal exam, normal orophraynx, mucous membranes moist - Neck Neck exam: Present: normal inspection, full ROM. Absent: tenderness, meningismus, lymphadenopathy, thyromegaly - Respiratory Respiratory exam: Present: normal lung sounds bilaterally - Cardiovascular Cardiovascular Exam: Present: regular rate, normal rhythm, normal heart sounds - GI/Abdominal GI/Abdominal exam: Present: soft, normal bowel sounds. Absent: distended, tenderness, guarding, rebound, rigid, organomegaly, mass, bruit, pulsatile mass, hernia - Extremities Exam Extremities exam: Present: normal inspection, full ROM, normal capillary refill, pedal edema. Absent: calf tenderness - Back Exam Back exam: Present: normal inspection, full ROM. Absent: tenderness, CVA tenderness (R), CVA tenderness (L), muscle spasm, paraspinal tenderness, vertebral tenderness, rash noted - Neurological Exam Neurological exam: Present: alert, oriented X3, CN II-XII intact, normal gait - Skin Skin exam: Present: warm, intact, normal color ED Course Vital Signs 01/17/19 01/17/19 14:43 16:46 Temperature 97.8 F Pulse Rate 84 80 Respiratory 18 19 Rate Blood Pressure 127/91 123/80 O2 Sat by Pulse 89 97 Oximetry ED Medical Decision Making - Lab Data Result diagrams: 01/17/19 14:44 01/17/19 14:44 - EKG Data -: EKG Interpreted by In EKG shows normal: sinus rhythm Rate: normal - EKG Data Interpretation: no acute changes - Radiology Data Radiology results: report reviewed Referring Physician: ROCK DEGROOT Patient Name: RENÉE SERRANO Date of : 1945 Sex: Female Report Date: 2019-01-17 Report Status: [place] [address] XRay Report Signed Patient: RENÉE SERRANO MR#: [id number] : 1945 Acct:[id number] Age/Sex: 73 / F ADM Date: 01/17/19 Loc: ED Attending Dr: Ordering Physician: ROCK DEGROOT Date of Service: 01/17/19 Procedure(s): XR chest 1V ap Accession Number(s): [id number] cc: ROCK DEGROOT Fluoro Time In Minutes: PROCEDURE: Chest. TECHNIQUE: AP view. HISTORY: Shortness of breath. COMPARISONS: Chest 01/09/2019. FINDINGS: The heart size is mildly enlarged. There is calcification in the aortic arch. The lungs are clear and well expanded. There are no pleural effusions. The soft tissues and regional skeleton are unremarkable. IMPRESSION: Cardiomegaly. This document is electronically signed by Morgan Crawford MD., January 17 2019 05:10:23 PM ET Transcribed By: MRM Dictated By: MORGAN CRAWFORD MD Electronically Authenticated By: MORGAN CRAWFORD MD Signed Date/Time: 01/17/19 171 DD/ 32 TD/TT: 01/17/191632 - Medical Decision Making Patient is 73 years old female with history of congestive heart failure, hypertension, arthritis and dementia. Patient was sent from our primary care office after she was seen today by the nurse practitioner for follow-up after she was discharged from the hospital.Practitioner send the patient to the ER for blood transfusion because she had an office H&H that showed a hemoglobin of 4.4. Patient's and family said there is no change in his status except for shortness of breath and generalized weakness. Patient denied any chest pain, nausea or vomiting. Patient had history of chronic anemia and she is on ferrous sulfate for that. Patient denied any hemoptysis, hematemesis, hematochezia, melena or hematochezia or hematuria. Patient remained asymptomatic in the emergency room. Patient labs revealed and showed a hemoglobin of 11.1. Chest x-ray did not show any evidence of CHF exacerbation. I believe the patient office labs is an error. I discussed with the patient family and the results and advised to follow-up with her primary care physician in the next 2-3 days and to return to the ER if she developed any new symptoms. Critical care attestation.: If time is entered above; I have spent that time in minutes in the direct care of this critically ill patient, excluding procedure time. ED Disposition Clinical Impression: Shortness of breath, Abnormal laboratory test Disposition: DC-01 TO HOME OR SELFCARE Is pt being admited?: No Condition: Stable Instructions: Heart Failure (ED) Referrals: PRIMARY CARE, [Referring] - 3-5 Days
--- NOTE | 2019-01-17 17:12 | XRay Report ---
PROCEDURE: Chest. TECHNIQUE: AP view. HISTORY: Shortness of breath. COMPARISONS: Chest 01/09/2019. FINDINGS: The heart size is mildly enlarged. There is calcification in the aortic arch. The lungs are clear and well expanded. There are no pleural effusions. The soft tissues and regional skeleton are unremarkab le. IMPRESSION: Cardiomegaly. This document is electronically signed by Jeffrey Mace MD., January 17 2019 05:10:23 PM ET
[2019-01-18 19:12] VITALS: BP 118/68
== END 2019-01-17 18:33 | disposition home or self-care (01) ==
LOC: ED 14:08
DX: R06.02 Shortness of breath (principal); R79.9 Abnormal finding of blood chemistry, unspecified; R53.1 Weakness; I11.0 Hypertensive heart disease with heart failure; M19.90 Unspecified osteoarthritis, unspecified site; F03.90 Unspecified dementia, unspecified severity, without behavioral disturbance, psychotic disturbance, mood disturbance, and anxiety; Z91.013 Allergy to seafood; Z90.710 Acquired absence of both cervix and uterus
CPT/HCPCS: 36415; 71045; 80053; 83880; 84484; 85007; 85025; 86850; 86900; 86901; 93005; 93010; 99284